=== PATIENT | male | born 1940 | race Two or more races ===

== ENCOUNTER 2016-08-25 11:20 | Outpatient (CLI) | payer MEDICARE, OTHER | END 2016-08-25 11:21 | disposition home or self-care (01) | DX: N18.3 Chronic kidney disease, stage 3 (moderate) (principal); R35.0 Frequency of micturition; R35.1 Nocturia; R33.9 Retention of urine, unspecified; R68.89 Other general symptoms and signs; N52.9 Male erectile dysfunction, unspecified ==

== ENCOUNTER 2016-08-25 11:20 | Outpatient (CLI) | payer MEDICARE, OTHER | END 2016-08-25 11:21 | disposition home or self-care (01) | DX: R35.0 Frequency of micturition (principal); R35.1 Nocturia; R68.89 Other general symptoms and signs; N18.9 Chronic kidney disease, unspecified; R31.29 Other microscopic hematuria; N52.9 Male erectile dysfunction, unspecified; R33.9 Retention of urine, unspecified ==

== ENCOUNTER 2016-08-26 14:27 | Outpatient (CLI) | payer MEDICARE, OTHER | END 2016-08-26 14:28 | disposition home or self-care (01) | DX: M41.26 Other idiopathic scoliosis, lumbar region (principal); M43.17 Spondylolisthesis, lumbosacral region; M51.16 Intervertebral disc disorders with radiculopathy, lumbar region; M47.26 Other spondylosis with radiculopathy, lumbar region; Z98.890 Other specified postprocedural states ==

== ENCOUNTER 2016-10-09 06:49 | Outpatient (CLI) | payer MEDICARE, OTHER | END 2016-10-09 06:50 | disposition home or self-care (01) | DX: I12.9 Hypertensive chronic kidney disease with stage 1 through stage 4 chronic kidney disease, or unspecified chronic kidney disease (principal); Z01.818 Encounter for other preprocedural examination; N18.3 Chronic kidney disease, stage 3 (moderate) ==

== ENCOUNTER 2016-12-01 15:20 | Emergency (ER) | payer MEDICARE, OTHER ==
[2016-12-01] MEDS ORDERED: SODIUM CHLORIDE 0.9% 1,000 ML IV ONE (17:17)
[2016-12-01] MEDS ORDERED: traMADol 50 MG TABLET PO STA (18:59)
[2016-12-01] MEDS ORDERED: ACETAMINOPHEN 325 MG TABLET PO STA (18:59)
[2016-12-01] MEDS ORDERED: traMADol 50 MG TABLET PO ONE (19:05)
[2016-12-01] MEDS ORDERED: ACETAMINOPHEN 325 MG TABLET PO ONE (19:05)
== END 2016-12-01 19:16 | disposition home or self-care (01) ==
DX: R55 Syncope and collapse (principal); I95.2 Hypotension due to drugs; T50.905A Adverse effect of unspecified drugs, medicaments and biological substances, initial encounter; M25.422 Effusion, left elbow; I10 Essential (primary) hypertension; Z79.82 Long term (current) use of aspirin
CPT/HCPCS: 36415; 71020; 73080; 80053; 81001; 83690; 83735; 84484; 85025; 99283; 99284; A9270

== ENCOUNTER 2016-12-08 08:55 | Outpatient (CLI) | payer MEDICARE, OTHER | END 2016-12-08 08:56 | disposition home or self-care (01) | DX: I12.9 Hypertensive chronic kidney disease with stage 1 through stage 4 chronic kidney disease, or unspecified chronic kidney disease (principal); N18.3 Chronic kidney disease, stage 3 (moderate); E78.5 Hyperlipidemia, unspecified ==

== ENCOUNTER 2016-12-08 15:46 | Outpatient (CLI) | payer MEDICARE, OTHER ==
[2016-12-08] MEDS ORDERED: GADOBUTROL 7.5 MMOL/7.5 ML VIAL IVP ONE (16:34)
== END 2016-12-08 15:47 | disposition home or self-care (01) ==
DX: M51.36 Other intervertebral disc degeneration, lumbar region (principal); M51.24 Other intervertebral disc displacement, thoracic region; M51.25 Other intervertebral disc displacement, thoracolumbar region; M47.896 Other spondylosis, lumbar region; M51.26 Other intervertebral disc displacement, lumbar region; M43.16 Spondylolisthesis, lumbar region; M43.17 Spondylolisthesis, lumbosacral region; I12.9 Hypertensive chronic kidney disease with stage 1 through stage 4 chronic kidney disease, or unspecified chronic kidney disease; N18.3 Chronic kidney disease, stage 3 (moderate); E78.5 Hyperlipidemia, unspecified
CPT/HCPCS: 36415; 72158; 80053; 84439; 84443; 85025; A9585

== ENCOUNTER 2017-05-20 14:36 | Outpatient (CLI) | payer MEDICARE, OTHER ==
[2017-05-20 19:10] LABS: CREATININE 1.6 mg/dL (0.6-1.2)
== END 2017-05-20 14:37 | disposition home or self-care (01) ==
LOC: LAB.N 14:36
PROVIDERS: ATTEND Urology
DX: R35.0 Frequency of micturition (principal); R68.89 Other general symptoms and signs; N52.9 Male erectile dysfunction, unspecified; R31.29 Other microscopic hematuria; N18.9 Chronic kidney disease, unspecified; R33.9 Retention of urine, unspecified; R35.1 Nocturia; M54.17 Radiculopathy, lumbosacral region
CPT/HCPCS: 36415; 82565; 84153

== ENCOUNTER 2017-05-25 08:40 | Outpatient (CLI) | payer MEDICARE, OTHER ==
[~2017-05-25 08:40] MED LIST: GADOBUTROL 7.5 MMOL/7.5 ML VIAL ONE
[2017-05-25] MEDS ORDERED: GADOBUTROL 7.5 MMOL/7.5 ML VIAL IVP ONE (09:32)
--- NOTE | 2017-05-25 11:01 | MRI Report ---
EXAM: MRI LUMBAR SPINE WITHOUT AND WITH CONTRAST EXAM DATE: 05/25/2017 09:39 AM. CLINICAL HISTORY: Lumbosacral radiculopathy. Chronic intermittent pain between the low back and right hip. Right calf numbness. COMPARISONS: MRI of the lumbar spine 12/08/2016. CT scan of the lumbar spine 08/14/2016. MRI of the l umbar spine 06/12/2016. TECHNIQUE: Multiplanar, multisequence T1-weighted and fluid-sensitive sequences of the lumbar spine f rom T12 to S1 before and after administration of intravenous contrast. IV contrast: 6 mL Gadavist. Ot her: None. FINDINGS: Postoperative: Postoperative changes once again seen at L5-S1. Posterior lateral fusion with transped icular screws is evident. This is unchanged. Spinal Cord: The conus terminates at L1. The conus medullaris and cauda equina are unremarkable. The lumbar spinal canal is capacious. Alignment: Mild dextroscoliosis is seen centered at L3-L4. Mild, 3 mm, spondylolisthesis is seen at L 5-S1 which is unchanged. Mild, 4 mm, spondylolisthesis is seen at L4-L5 which has progressed. Mild, 4 .5 mm, retrolisthesis is seen at L1 to which is unchanged. Bone Marrow: Five nic-owe-helyltb lumbar vertebral bodies are assumed. No gross fractures or bone les ions. No bone marrow edema or abnormal enhancement. Scattered diskogenic endplate irregularity and si gnal abnormality is noted. Disk Levels/Facets: T12-L1: Unremarkable on sagittal series. Mild dorsal disk protrusion extending behind the L1 superior endplate is seen. Dorsal annular fissure is noted. This is unchanged. No stenosis. L1-L2: Mild retrolisthesis. Marked loss of disk space height. Diskogenic endplate irregularity and si gnal abnormality with Modic type II change. Mild circumferential disk bulge. Anterior and lateral ost eophyte formation. No stenosis. L2-L3: Mild degenerative facet change. T2 hypointense disk signal. Mild circumferential disk bulge. L eft paracentral disk protrusion with small inferior extrusion behind the L3 superior endplate. Underl aurelia moderate left lateral recess stenosis is seen with mass effect on descending left L3 nerve root. This is not significantly changed. L3-L4: Moderate degenerative facet change is present. Marked loss of disk space height. Marked loss o f disk space height is seen. Diskogenic endplate irregularity and signal abnormality is seen greatest centrally and to the left. Mild circumferential protrusion of disk/osteophyte complex. Effacement of the thecal sac is noted without canal or lateral recess stenosis. Mass effect on exiting left L3 ner ve root is seen with moderate left foraminal stenosis. This is unchanged. L4-L5: Moderate degenerative facet change is seen. Postoperative change from partial facetectomy is n oted. Fluid is seen in the facet joints greater on the left. This is unchanged. Mild spondylolisthesi s is present which is new. Mild loss of disk space height is seen. Vacuum cleft phenomenon and T2 hyp ointense disk signal is present. Circumferential disk bulge is seen. Lobular right paracentral and me dial foraminal disk herniation is seen extending superiorly behind the L4 vertebral body. This measur es 16 x 10 x 15 mm in size. Mass effect on descending and proximal exiting right L4 nerve root is see n. Moderate stenosis is seen at the junction of the lateral recess and medial foramen. This has progr essed. L5-S1: Postoperative change. Mild loss of disk space height. Vacuum cleft phenomenon. Minimal circumf erential disk bulge. No stenosis. Spinal Canal: No enhancing masses within the spinal canal. No epidural abscess. Musculature: Normal. No edema, abnormal enhancement, or fatty atrophy. Other: There is a circumscribed 20 mm lesion posteromedially in the left kidney. This demonstrates mi ld increased T1 and isointense T2 signal. (This region was not included on most recent prior MRI; how ever, there is minimal increase compared to MRI of June 2016 at which time this measured approxim ately 18 mm). Additionally, there are a few small cortical cysts seen in the visualized right kidney, unchanged. IMPRESSION: 1. Circumscribed 20 mm mass posteromedially in the mid pole of the left kidney is partially visualize d. This does not appear to represent a simple cyst on MR. This may represent a cyst with hemorrhagic or proteinaceous debris. Correlation with ultrasound would be of value to assess for solid versus cys tic renal lesion. 2. Postoperative change at L5-S1 from posterior fusion once again noted. Mild spondylolisthesis is se en, unchanged. No stenosis. 3. L4-L5: Progression of moderate degenerative disk and facet change. Development of mild spondylolis thesis. Progression of right paracentral and medial foraminal superior disk herniation. Stenosis is s een at the right L4 lateral recess and medial foramen with mass effect on descending and exiting righ t L4 nerve root. 4. L3-L4: Moderate to marked degenerative disk and facet change once again evident. Left moderate for aminal stenosis with mass effect on exiting left L3 nerve root. This likely is not significantly shrestha ged. 5. L2-L3: Mild degenerative disk and facet change. Left paracentral disk herniation is seen behind th e L3 superior endplate. Left moderate lateral recess stenosis is seen with mass effect on descending left L3 nerve root. This likely is not significantly changed. 6. L1-L2: Marked degenerative disk change. Mild retrolisthesis. No stenosis. No significant change. Comment: The following findings are so common in adults without low back pain that while we report th eir presence, they must be interpreted with caution and in the context of the clinical situation. (Re emily Atwood et al, Spine 2001) Prevalence of findings in patients without low back pain: Disk degeneration (any evidence): 92% Disk desiccation/T2 signal loss: 83% Disk height loss: 56% Disk bulge: 64% Disk protrusion: 32% Annular tear/high intensity zone: 38% [facility] Referring Provider Line: [phone] SITE ID: [id number]
== END 2017-05-25 08:41 | disposition home or self-care (01) ==
LOC: DI 08:40
PROVIDERS: ATTEND Physician Assistant
DX: M51.26 Other intervertebral disc displacement, lumbar region (principal); M51.36 Other intervertebral disc degeneration, lumbar region; M47.896 Other spondylosis, lumbar region; M43.16 Spondylolisthesis, lumbar region; N28.89 Other specified disorders of kidney and ureter; Z98.1 Arthrodesis status
CPT/HCPCS: 72158; A9585

== ENCOUNTER 2017-05-29 14:49 | Outpatient (CLI) | payer MEDICARE, OTHER ==
--- NOTE | 2017-05-30 14:28 | Ultrasound Report ---
EXAM: RENAL ULTRASOUND EXAM DATE: 05/29/2017 04:08 PM. CLINICAL HISTORY: BENIGN NEOPLASM OF LT KIDNEY. COMPARISON: None. TECHNIQUE: Real-time scanning was performed with static images obtained. FINDINGS: Right Kidney: 11.3 x 5.2 x 5.1 cm. Diffuse increased cortical echogenicity suggest medical renal dise ase. Multiple renal cysts. The 2 largest measure 1.9 x 1.8 x 2.2 cm superiorly and 1.9 x 1.5 x 1.8 cm in the mid kidney. No mass, hydronephrosis or stones demonstrated. Left Kidney: 10.6 x 5.1 x 5.6 cm. Diffuse increased cortical echogenicity suggests medical renal dise ase. Multiple cysts, the largest within the upper pole measuring 2.6 x 2.5 x 2.4 cm. There is an infe rior cyst measuring 1.5 x 1.3 x 1.5 cm with possible calcification within its wall, versus artifact. No definite mass. No hydronephrosis or definite calculi. Bladder: Bilateral jets seen. The prevoid bladder volume was 453 cc. The postvoid bladder volume was 67 cc. IMPRESSION: 1. Bilateral renal increased cortical echogenicity suggests medical renal disease. 2. Multiple bilateral renal cysts. There is one possibly mildly complicated but benign-appearing left cyst. No definite mass demonstrate. 3. Postvoid bladder residual 67 cm. [facility] Referring Provider Line: [phone] SITE ID: [id number]
== END 2017-05-29 14:50 | disposition home or self-care (01) ==
LOC: DI 14:49
PROVIDERS: ATTEND Family Medicine
DX: Q61.02 Congenital multiple renal cysts (principal)
CPT/HCPCS: 76770

== ENCOUNTER 2017-08-28 07:45 | Outpatient (CLI) | payer MEDICARE, OTHER ==
[2017-08-28 12:29] LABS: ALBUMIN 3.5 g/dL (3.2-5.5); ALBUMIN/GLOBULIN RATIO 1.3 (1.0-2.2); ALKALINE PHOSPHATASE 66 IU/L (42-121); ALT ALANINE AMINOTRANSFERASE 18 IU/L (10-60); AST ASPARTATE AMINOTRANSFERASE 31 IU/L (10-42); BILIRUBIN,TOTAL 0.7 mg/dL (0.2-1.0); BUN - BLOOD UREA NITROGEN 22 mg/dL (6-20); CALCIUM 8.8 mg/dL (8.5-10.3); CARBON DIOXIDE - CO2 27 mmol/L (21-32); CHLORIDE 104 mmol/L (101-111); CHOLESTEROL 273 mg/dL; CREATININE 1.6 mg/dL (0.6-1.2); GFR - MDRD 42 (>89); GLUCOSE 101 mg/dL (70-100); HDL CHOLESTEROL 90 mg/dL; LDL CHOLESTEROL,CALCULATED 167 mg/dL; LDL/HDL RATIO 1.9 (<3.6); SODIUM 138 mmol/L (135-145); TOTAL PROTEIN 6.2 g/dL (6.7-8.2); VLDL CHOLESTEROL 16 mg/dL
[2017-08-28 12:36] LABS: THYROID STIMULATING HORMONE 0.29 uIU/mL (0.34-5.60)
[2017-08-28 14:14] LABS: FREE T4 (FREE THYROXINE) 0.96 ng/dL (0.58-1.64)
== END 2017-08-28 07:46 | disposition home or self-care (01) ==
LOC: LAB.WCP 07:45
PROVIDERS: ATTEND Family Medicine
DX: I10 Essential (primary) hypertension (principal); E78.5 Hyperlipidemia, unspecified
CPT/HCPCS: 36415; 80053; 80061; 83721; 84439; 84443

== ENCOUNTER 2018-05-27 10:40 | Outpatient (CLI) | payer MEDICARE, OTHER | END 2018-05-27 10:41 | LOC: LAB.WCP 10:40 | PROVIDERS: ATTEND Urology | DX: R35.0 Frequency of micturition (principal); R68.89 Other general symptoms and signs | CPT/HCPCS: 36415; 84153 ==

== ENCOUNTER 2019-04-09 09:21 | Outpatient (CLI) | payer MEDICARE, OTHER ==
[2019-04-09] MEDS ORDERED: GADOBUTROL 10 MMOL/10 ML VIAL ONE (10:11)
[2019-04-09] MEDS ORDERED: GADOBUTROL 10 MMOL/10 ML VIAL IVP ONE (10:35)
--- NOTE | 2019-04-10 12:57 | MRI Report ---
Reason: LUMBAR RADICULOPATHY Procedure Date: 04/09/2019 Accession Number: [id number] / [id number] Procedure: MRI - Lumbar Spine W/WO CPT Code: FULL RESULT: EXAM: MRI LUMBAR SPINE WITHOUT AND WITH CONTRAST EXAM DATE: 04/09/2019 10:57 AM. CLINICAL HISTORY: Lumbar radiculopathy. COMPARISONS: LUMBAR SPINE W/WO 05/25/2017 9:00 AM. TECHNIQUE: Multiplanar, multisequence T1-weighted and fluid-sensitive sequences of the lumbar spine from T12 to S1 before and after administration of intravenous contrast. Other: None. IV contrast: 7 cc Gadavist. FINDINGS: Neurologic Structures: The conus terminates at L1. The conus medullaris and cauda equina are unremarkable. Alignment: Approximately 5 mm posterior subluxation L1 on L2. 7 mm anterior subluxation L4 on L5 and L5 on S1. Appearance is similar to prior. Lumbar curvature convex right. Mild right lateral subluxation L3 on L4 and left lateral subluxation L1 on L2. Bone Marrow: Five ths-fvr-uhchmle lumbar vertebral bodies are assumed. Postsurgical change of posterior instrumented fusion and posterior decompression at L5-S1 with pedicle screws. Associated magnetic susceptibility artifact. Disk Levels/Facets: T12-L1: Annular disk bulge with tiny annular fissure and mild degenerative facet arthropathy. No significant stenosis unchanged. L1-L2: Severe disk height loss. Retrolisthesis. Annular disk bulge and mild degenerative facet arthropathy. Mild effacement of the thecal sac unchanged. Mild left greater than right foraminal stenosis unchanged. L2-L3: Mild disk height loss. Annular disk bulge and mild to moderate facet arthropathy. Superimposed broad-based left foraminal protrusion appears slightly increased in size from prior. Severe left lateral recess stenosis. Moderate left foraminal stenosis increased from prior. L3-L4: Disk height loss. Annular disk bulge and osteophyte formation. Moderate degenerative facet arthropathy. Mild effacement of the thecal sac. Moderate left and minimal right foraminal stenosis unchanged. L4-L5: Grade 1 spondylolisthesis. Annular disk bulge and uncovering of the disk. Posterior decompression. No central canal stenosis. Moderate left and severe right foraminal stenosis. Size of the right paracentral and subarticular zone superior disk extrusion has significantly decreased. L5-S1: Grade 1 spondylolisthesis. Annular disk bulge and uncovering of the disk. Posterior decompression. No central canal stenosis. Moderate left and mild right foraminal stenosis unchanged. Spinal Canal: No enhancing masses within the spinal canal. No epidural abscess. Musculature: Mild atrophy of the inferior paraspinous musculature. Other: Multiple bilateral renal cysts partially visualized. Rounded complex lesion at the medial aspect of the left kidney unchanged from prior. IMPRESSION: 1. Multilevel lumbar degenerative disk and facet arthropathy with multilevel subluxations, posterior decompression and posterior fusion at L5-S1 unchanged. 2. Size of the right paracentral superior disk extrusion at the L4-L5 level has significantly decreased from prior. Persistent severe right and moderate left foraminal stenosis. 3. Remainder of the examination is unchanged from prior. Comment: The following findings are so common in adults without low back pain that while we report their presence, they must be interpreted with caution and in the context of the clinical situation. (Reference Zurik et al, Spine 2001) Prevalence of findings in patients without low back pain: Disk degeneration (any evidence): 92% Disk desiccation/T2 signal loss: 83% Disk height loss: 56% Disk bulge: 64% Disk protrusion: 32% Annular tear/high intensity zone: 38% [facility]
== END 2019-04-09 09:22 | disposition home or self-care (01) ==
LOC: DI 09:21
PROVIDERS: ATTEND Family Medicine
DX: M51.26 Other intervertebral disc displacement, lumbar region (principal); M51.36 Other intervertebral disc degeneration, lumbar region; M48.061 Spinal stenosis, lumbar region without neurogenic claudication; M47.816 Spondylosis without myelopathy or radiculopathy, lumbar region; M43.16 Spondylolisthesis, lumbar region; M43.17 Spondylolisthesis, lumbosacral region; M48.07 Spinal stenosis, lumbosacral region
CPT/HCPCS: 72158; A9585

== ENCOUNTER 2019-05-30 13:24 | Outpatient (CLI) | payer MEDICARE, OTHER ==
--- NOTE | 2019-05-30 14:28 | CT Report ---
Reason: SPONDYLOSIS OF LUMBAR SPINE Procedure Date: 05/30/2019 Accession Number: [id number] / [id number] Procedure: CT - LUMBAR SPINE WO CPT Code: FULL RESULT: EXAM: CT LUMBAR SPINE WITHOUT CONTRAST EXAM DATE: 05/30/2019 01:30 PM. CLINICAL HISTORY: 78-year-old with history of prior lumbar spine surgery presenting with low back pain and lower extremity radiculopathy. Evaluate for lumbar pathology. COMPARISONS: LUMBAR SPINE W/O 08/26/2016 3:15 PM LUMBAR SPINE W/WO 04/09/2019 10:22 AM. TECHNIQUE: Thin-section axial images were acquired of the lumbar spine from T12 to S1 without contrast. Post-processing: Coronal and sagittal reformats. Other: None. In accordance with CT protocol optimization, one or more of the following dose reduction techniques were utilized for this exam: automated exposure control, adjustment of mA and/or KV based on patient size, or use of iterative reconstructive technique. FINDINGS: Postsurgical: Postsurgical changes of L5-S1 posterior spinal instrumented fusion and L5 laminectomy. Bilateral L5 and S1 pedicle screws are seen. There is 2 mm of lucency seen around the bilateral L5 pedicle screws concerning for potential loosening no evidence of hardware fracture. Bilateral L5-S1 vertical horizontal stabilization bars are seen. Alignment: There is 16 degrees of rightward curvature of the thoracic spine centered about L2-L3. There is 2-3 mm of grade 1 anterolisthesis of L1 on L2, 3-4 mm of grade 1 anterolisthesis of L2 on L3, 2-3 mm of anterolisthesis of L3 on L4, 8 mm of grade 1/2 anterolisthesis of L4 on L5, and 4-5 mm of grade 1 anterolisthesis of L5 on S1. Bones: Five wir-abp-webwvnl lumbar vertebral bodies are present. No fractures or bone lesions. There is arthritic changes seen between the spinous processes of L3 on L4 and to lesser degree L2 on L3. Disk Levels/Facets: T11-T12: Mild to moderate endplate degenerative change, Schmorl's node formation, mild to moderate loss of disk height, and vacuum disk phenomenon. Bilateral arthritic facet disease. No definite spinal canal stenosis. No definite neural foraminal narrowing. T12-L1: Mild endplate degenerative change, Schmorl's node formation, and mild loss of disk height. Slight posterior disk bulge. Bilateral arthritic facet disease. No definite spinal canal stenosis. Minimal bilateral neural femoral narrowing. L1-L2: Moderate to severe endplate degenerative change, Schmorl's node formation, severe loss of disk height, and vacuum disk phenomenon. Small posterior disk osteophyte complex. Bilateral arthritic facet disease. Effacement of the ventral thecal sac. Mild right and mild to moderate left neural foraminal narrowing. L2-L3: Mild endplate degenerative change, Schmorl's node formation, mild loss of disk height, and vacuum disk phenomenon. Slight posterior disk bulge, ligamentum flavum thickening, and prominent epidural fat. Mild spinal canal stenosis and effacement of the lateral recesses with contact of the traversing right L3 and contact potential mass effect on the traversing left L3 nerve roots. Mild right and severe left neural foraminal narrowing. L3-L4: Moderate endplate degenerative change, Schmorl's node formation, severe loss of disk height, and vacuum disk phenomenon. Small posterior disk bulge, ligamentum flavum thickening, and arthritic facet disease. Mild spinal canal stenosis and effacement of the lateral recesses. Mild right and moderate left neural foraminal narrowing. L4-L5: Moderate endplate degenerative change, Schmorl's node formation, moderate to severe loss of disk height, and vacuum disk phenomenon. Decompression of the thecal sac. Bilateral arthritic facet disease. No spinal canal stenosis. Severe bilateral neural foraminal narrowing. L5-S1: Mild endplate degenerative change, mild loss of disk height, and vacuum disk phenomenon. Decompression of the thecal sac. Bilateral arthritic facet disease. Mild to moderate bilateral neural foraminal narrowing. Musculature: Postsurgical changes seen within the posterior spinal musculature with edema seen within the posterior subcutaneous tissues. Other: Bilateral perinephric fat stranding. Severe aortoiliac atherosclerotic calcifications. Colonic diverticulosis without evidence of diverticulitis. Simple cysts seen within the hepatic lobe measuring up to 27 mm (series 3, image 12). Bilateral simple renal cyst seen. Hyperdense left kidney lower pole measuring up to 22 mm (series 3, image 50) that may present a hemorrhagic cyst. IMPRESSION: 1. Postsurgical changes of L5-S1 posterior spinal instrumented fusion and L5 laminectomy. There is 2 mm of lucency seen around the bilateral L5 pedicle screws concerning for potential loosening no evidence of hardware fracture. 2.There is 16 degrees of rightward curvature of the thoracic spine centered about L2-L3. 3. There is 2-3 mm of grade 1 anterolisthesis of L1 on L2, 3-4 mm of grade 1 anterolisthesis of L2 on L3, 2-3 mm of anterolisthesis of L3 on L4, 8 mm of grade 1/2 anterolisthesis of L4 on L5, and 4-5 mm of grade 1 anterolisthesis of L5 on S1. 4. Multilevel degenerative change that appears similar to MR lumbar spine 04/09/2019. L1-L2: Effacement of the ventral thecal sac. Mild right and mild to moderate left neural foraminal narrowing. L2-L3: Mild spinal canal stenosis and effacement of the lateral recesses with contact of the traversing right L3 and contact potential mass effect on the traversing left L3 nerve roots. Mild right and severe left neural foraminal narrowing. L3-L4: Mild spinal canal stenosis and effacement of the lateral recesses. Mild right and moderate left neural foraminal narrowing. L4-L5: No spinal canal stenosis. Severe bilateral neural foraminal narrowing. L5-S1: No definite spinal canal stenosis. Mild to moderate bilateral neural foraminal narrowing. 5. Severe aortoiliac atherosclerotic calcifications. 6. Colonic diverticulosis without evidence of diverticulitis. 7. Hyperdense left kidney lower pole measuring up to 22 mm (series 3, image 50) that may present a hemorrhagic cyst. Consider dedicated renal imaging evaluation. [facility]
== END 2019-05-30 13:25 | disposition home or self-care (01) ==
LOC: DI 13:24
PROVIDERS: ATTEND Nurse Practitioner Adult Health
DX: M47.816 Spondylosis without myelopathy or radiculopathy, lumbar region (principal); M51.36 Other intervertebral disc degeneration, lumbar region; M48.061 Spinal stenosis, lumbar region without neurogenic claudication; M51.34 Other intervertebral disc degeneration, thoracic region; M51.46 Schmorl's nodes, lumbar region; M51.44 Schmorl's nodes, thoracic region; M43.16 Spondylolisthesis, lumbar region; M41.9 Scoliosis, unspecified; I70.0 Atherosclerosis of aorta; K57.30 Diverticulosis of large intestine without perforation or abscess without bleeding
CPT/HCPCS: 72131

== ENCOUNTER 2019-06-23 07:00 | Outpatient (CLI) | payer MEDICARE, OTHER ==
[2019-06-23 13:01] LABS: BASOPHILS # (AUTO) 0.1 10^3/uL (0.0-0.1); EOSINOPHILS # (AUTO) 0.1 10^3/uL (0.0-0.7); EOSINOPHILS % (AUTO) 2.1 %; HGB - HEMOGLOBIN 13.3 g/dL (14.0-18.0); LYMPHOCYTES # (AUTO) 0.6 10^3/uL (1.5-3.5); LYMPHOCYTES % (AUTO) 12.5 %; MEAN CORPUSCULAR HEMOGLOBIN 31.1 pg (27.0-31.0); MEAN CORPUSCULAR HGB CONC 32.4 g/dL (32.0-36.0); MEAN CORPUSCULAR VOLUME 96.3 fL (80.0-94.0); MONOCYTES # (AUTO) 0.5 10^3/uL (0.0-1.0); MONOCYTES % (AUTO) 9.4 %; NEUTROPHILS # (AUTO) 3.8 10^3/uL (1.5-6.6); NEUTROPHILS % (AUTO) 74.8 %; PLT - PLATELET COUNT 273 10^3/uL (130-450); RED BLOOD COUNT 4.27 10^6/uL (4.70-6.10); RED CELL DISTRIBUTION WIDTH 12.8 % (12.0-15.0); WHITE BLOOD COUNT 5.1 x10^3/uL (4.8-10.8)
[2019-06-23 13:28] LABS: ALBUMIN 3.6 g/dL (3.2-5.5); ALBUMIN/GLOBULIN RATIO 1.2 (1.0-2.2); ALKALINE PHOSPHATASE 55 IU/L (42-121); ALT ALANINE AMINOTRANSFERASE 17 IU/L (10-60); AST ASPARTATE AMINOTRANSFERASE 29 IU/L (10-42); BILIRUBIN,TOTAL 0.8 mg/dL (0.2-1.0); BUN - BLOOD UREA NITROGEN 34 mg/dL (6-20); CALCIUM 8.9 mg/dL (8.5-10.3); CARBON DIOXIDE - CO2 28 mmol/L (21-32); CHLORIDE 102 mmol/L (101-111); CHOL/HDL RATIO 3.1 (<5.0); CHOLESTEROL 245 mg/dL; GFR - MDRD 33 (>89); GLUCOSE 102 mg/dL (70-100); HDL CHOLESTEROL 80 mg/dL; LDL CHOLESTEROL,CALCULATED 152 mg/dL; LDL/HDL RATIO 1.9 (<3.6); SODIUM 138 mmol/L (135-145); TOTAL PROTEIN 6.5 g/dL (6.7-8.2); VLDL CHOLESTEROL 13 mg/dL
== END 2019-06-23 23:59 | disposition home or self-care (01) ==
LOC: LAB.WCP 07:00
PROVIDERS: ATTEND Family Medicine
DX: M54.16 Radiculopathy, lumbar region (principal); I10 Essential (primary) hypertension; E78.5 Hyperlipidemia, unspecified
CPT/HCPCS: 36415; 80053; 80061; 83721; 84443; 85025

== ENCOUNTER 2019-08-11 08:00 | Outpatient (CLI) | payer MEDICARE, OTHER ==
[2019-08-11 12:51] LABS: CALCIUM 9.2 mg/dL (8.5-10.3); CREATININE 1.9 mg/dL (0.6-1.2)
== END 2019-08-11 23:59 | disposition home or self-care (01) ==
LOC: LAB.WCP 08:00
PROVIDERS: ATTEND Family Medicine
DX: N18.3 Chronic kidney disease, stage 3 (moderate) (principal)
CPT/HCPCS: 36415; 80048

== ENCOUNTER 2019-08-19 10:10 | Outpatient (CLI) | payer MEDICARE, OTHER | END 2019-08-19 23:59 | disposition home or self-care (01) | LOC: LAB.WCP 10:10 | PROVIDERS: ATTEND Urology | DX: N52.9 Male erectile dysfunction, unspecified (principal); R39.9 Unspecified symptoms and signs involving the genitourinary system; R68.89 Other general symptoms and signs; R31.29 Other microscopic hematuria; R33.9 Retention of urine, unspecified | CPT/HCPCS: 36415; 84153 ==

== ENCOUNTER 2019-10-10 11:22 | Outpatient (CLI) | payer MEDICARE, OTHER ==
[2019-10-10 18:32] LABS: BASOPHILS % (AUTO) 0.4 %; EOSINOPHILS # (AUTO) 0.1 10^3/uL (0.0-0.7); EOSINOPHILS % (AUTO) 0.9 %; HGB - HEMOGLOBIN 13.7 g/dL (14.0-18.0); LYMPHOCYTES # (AUTO) 0.9 10^3/uL (1.5-3.5); LYMPHOCYTES % (AUTO) 13.3 %; MEAN CORPUSCULAR HEMOGLOBIN 30.4 pg (27.0-31.0); MEAN CORPUSCULAR HGB CONC 32.4 g/dL (32.0-36.0); MEAN PLATELET VOLUME 9.8 fL (7.4-11.4); MONOCYTES # (AUTO) 0.5 10^3/uL (0.0-1.0); MONOCYTES % (AUTO) 7.5 %; NEUTROPHILS # (AUTO) 5.2 10^3/uL (1.5-6.6); NEUTROPHILS % (AUTO) 77.6 %; PLT - PLATELET COUNT 312 10^3/uL (130-450); RED CELL DISTRIBUTION WIDTH 13.1 % (12.0-15.0); WHITE BLOOD COUNT 6.7 x10^3/uL (4.8-10.8)
[2019-10-10 18:48] LABS: ALBUMIN 3.7 g/dL (3.2-5.5); ALKALINE PHOSPHATASE 55 IU/L (42-121); ALT ALANINE AMINOTRANSFERASE 16 IU/L (10-60); AST ASPARTATE AMINOTRANSFERASE 26 IU/L (10-42); BILIRUBIN,TOTAL 0.7 mg/dL (0.2-1.0); BUN - BLOOD UREA NITROGEN 32 mg/dL (6-20); CALCIUM 9.3 mg/dL (8.5-10.3); CARBON DIOXIDE - CO2 28 mmol/L (21-32); CHLORIDE 100 mmol/L (101-111); GFR - MDRD 33 (>89); GLUCOSE 123 mg/dL (70-100); SODIUM 136 mmol/L (135-145); TOTAL PROTEIN 6.8 g/dL (6.7-8.2)
[2019-10-10 18:57] LABS: BILIRUBIN,DIRECT < 0.1 mg/dL (0.1-0.5)
== END 2019-10-10 23:59 | disposition home or self-care (01) ==
LOC: LAB.WCP 11:22
PROVIDERS: ATTEND Podiatrist
DX: B35.1 Tinea unguium (principal)
CPT/HCPCS: 36415; 80048; 80076; 85025

== ENCOUNTER → 2020-05-23 | Outpatient (CLI) | payer MEDICARE, OTHER ==
[2020-05-23 18:24] LABS: ALBUMIN 3.7 g/dL (3.2-5.5); ALBUMIN/GLOBULIN RATIO 1.4 (1.0-2.2); BILIRUBIN,TOTAL 0.7 mg/dL (0.2-1.0); CALCIUM 9.7 mg/dL (8.5-10.3); TOTAL PROTEIN 6.3 g/dL (6.7-8.2)
== END ==
LOC: LAB.WCP 08:00
PROVIDERS: ATTEND Family Medicine
DX: B35.1 Tinea unguium (principal); N40.1 Benign prostatic hyperplasia with lower urinary tract symptoms; N13.8 Other obstructive and reflux uropathy; R68.89 Other general symptoms and signs
CPT/HCPCS: 36415; 80053; 84153

== ENCOUNTER 2020-05-29 15:19 | Outpatient (CLI) | payer MEDICARE, OTHER ==
--- NOTE | 2020-05-30 09:14 | Ultrasound Report ---
PROCEDURE: Duplex Lwr Ext Arterial Bilat INDICATIONS: RECURRING BILAT LE REST PAIN TECHNIQUE: Color and pulse Doppler interrogation was performed of both lower extremity arterial systems, with im age documentation. COMPARISON: FINDINGS: Right lower extremity: Common femoral artery: 136 cm/sec, with triphasic flow. Deep femoral artery: 64 cm/sec, with triphasic flow. Proximal superficial femoral artery: 70 cm/sec, with triphasic flow. Mid superficial femoral artery: 78 cm/sec, with triphasic flow. Distal superficial femoral artery: 56 cm/sec, with triphasic flow. Popliteal artery: 39 cm/sec, with biphasic/triphasic flow. Posterior tibial artery: 79 cm/sec, with triphasic flow. Anterior tibial artery/dorsalis pedis: 83/84 cm/sec, with biphasic/triphasic flow. Jiménez-scale imaging description: Mild to moderate calcific plaque bilaterally. Left lower extremity: Common femoral artery: 92 cm/sec, with triphasic flow. Deep femoral artery: 58 cm/sec, with monophasic flow. Proximal superficial femoral artery: 56 cm/sec, with triphasic flow. Mid superficial femoral artery: 60 cm/sec, with triphasic flow. Distal superficial femoral artery: 108 cm/sec, with triphasic flow. Popliteal artery: 37 cm/sec, with biphasic flow. Posterior tibial artery: 87 cm/sec, with biphasic flow. Anterior tibial artery/dorsalis pedis: 69/55 cm/sec, with biphasic/biphasic flow. Jiménez-scale imaging description: Mild to moderate calcific plaque bilaterally IMPRESSION: Mild to moderate calcific plaque bilaterally within the lower extremity arterial vasculature but with out arterial insufficiency found bilaterally. A definite source for suspected bilateral claudication is not found. Reviewed by: Cedrick Valdez MD on 05/30/2020 9:13 AM PDT Approved by: Cedrick Valdez MD on 05/30/2020 9:13 AM PDT Station ID: [id number]
--- NOTE | 2020-05-30 09:23 | Ultrasound Report ---
PROCEDURE: Ankle Brachial Index INDICATIONS: RECURRING BILAT LE REST PAIN TECHNIQUE: Ankle-brachial indices were obtained bilaterally and recorded. COMPARISONS: Arterial Doppler ultrasound study same day.. FINDINGS: Right ankle brachial index (ADRIANE): 1.1 Left ankle brachial index (ADRIANE): 1.2 Healing potential: Ankle pressures >55 mm Hg in non-diabetics and >80 mm Hg in diabetics are likely to achieve primary h ealing of ischemic foot ulcers. Toe pressures >30 mm Hg are likely to achieve primary healing of ischemic foot ulcers, toe or transme tatarsal amputations. IMPRESSION: Normal ankle-brachial index bilaterally. Reviewed by: Cedrick Valdez MD on 05/30/2020 9:22 AM PDT Approved by: Cedrick Valdez MD on 05/30/2020 9:22 AM PDT Station ID: [id number]
== END 2020-05-29 15:20 | disposition home or self-care (01) ==
LOC: DI 15:19
PROVIDERS: ATTEND Podiatrist
DX: I70.203 Unspecified atherosclerosis of native arteries of extremities, bilateral legs (principal)
CPT/HCPCS: 93922; 93925

== ENCOUNTER 2020-07-09 13:20 | Outpatient (CLI) | payer MEDICARE, OTHER ==
--- NOTE | 2020-07-09 13:22 | XRAY Report ---
PROCEDURE: Shoulder 3 View LT INDICATIONS: L SHOULDER PX TECHNIQUE: 3 views of the shoulder were acquired. COMPARISON: None. FINDINGS: Bones: No fractures or dislocations. Mild periarticular osteophyte formation at the acromioclavicul ar and glenohumeral joints. No suspicious bony lesions. Visualized ribs appear intact. Soft tissues: No suspicious soft tissue calcifications. IMPRESSION: Osteoarthritis. No acute fracture. No osseous lesion. If symptoms and/or clinical suspic ion for pathology continue, further assessment with repeat plain films, or advanced imaging (e.g., CT , MRI, or bone scan) is recommended for further assessment. Reviewed by: Sally Rosales MD on 07/09/2020 1:20 PM PST Approved by: Sally Rosales MD on 07/09/2020 1:20 PM [facility] Station ID: [id number]
== END 2020-07-09 23:59 | disposition home or self-care (01) ==
LOC: DI.N 13:20
PROVIDERS: ATTEND Nurse Practitioner
DX: M19.012 Primary osteoarthritis, left shoulder (principal)

== ENCOUNTER 2020-07-12 07:00 | Outpatient (CLI) | payer MEDICARE, OTHER ==
--- NOTE | 2020-07-12 13:57 | XRAY Report ---
PROCEDURE: Chest 2 View X-Ray INDICATIONS: EDEMA OF LOWER EXTREMITY TECHNIQUE: 2 view(s) of the chest. COMPARISON: 12/01/2016 FINDINGS: Surgical changes and devices: None. Lungs and pleura: Mixed groundglass and consolidative opacity in the left lung base which is new from the prior study, nonspecific. No pleural effusion or pneumothorax. Mediastinum: Mediastinal contours are normal. Heart size is normal. Bones and chest wall: No suspicious bony abnormalities. Soft tissues appear unremarkable. IMPRESSION: Lung base airspace opacity. Findings may represent pneumonia although alveolar pulmonary edema could appear similar. Reviewed by: Titi Ingram MD on 07/12/2020 1:56 PM PST Approved by: Titi Ingram MD on 07/12/2020 1:56 PM PST Station ID: [id number]
== END 2020-07-12 23:59 | disposition home or self-care (01) ==
LOC: DI.N 07:00
PROVIDERS: ATTEND Nurse Practitioner
DX: R60.0 Localized edema (principal)

== ENCOUNTER 2020-07-12 08:00 | Outpatient (CLI) | payer MEDICARE, OTHER ==
[2020-07-12 18:03] LABS: BASOPHILS % (AUTO) 0.5 %; EOSINOPHILS # (AUTO) 0.1 10^3/uL (0.0-0.7); EOSINOPHILS % (AUTO) 1.6 %; HGB - HEMOGLOBIN 12.8 g/dL (14.0-18.0); LYMPHOCYTES % (AUTO) 15.5 %; MEAN CORPUSCULAR HEMOGLOBIN 30.9 pg (27.0-31.0); MEAN CORPUSCULAR HGB CONC 31.5 g/dL (32.0-36.0); MEAN CORPUSCULAR VOLUME 98.1 fL (80.0-94.0); MONOCYTES # (AUTO) 0.5 10^3/uL (0.0-1.0); MONOCYTES % (AUTO) 8.3 %; NEUTROPHILS # (AUTO) 4.7 10^3/uL (1.5-6.6); NEUTROPHILS % (AUTO) 73.5 %; PLT - PLATELET COUNT 258 10^3/uL (130-450); RED BLOOD COUNT 4.14 10^6/uL (4.70-6.10); RED CELL DISTRIBUTION WIDTH 13.6 % (12.0-15.0); WHITE BLOOD COUNT 6.4 x10^3/uL (4.8-10.8)
[2020-07-12 18:19] LABS: ALBUMIN 3.4 g/dL (3.2-5.5); ALBUMIN/GLOBULIN RATIO 1.4 (1.0-2.2); BILIRUBIN,TOTAL 0.6 mg/dL (0.2-1.0); CALCIUM 8.9 mg/dL (8.5-10.3); TOTAL PROTEIN 5.8 g/dL (6.7-8.2)
== END 2020-07-12 23:59 | disposition home or self-care (01) ==
LOC: LAB.N 08:00
PROVIDERS: ATTEND Nurse Practitioner
DX: R60.0 Localized edema (principal)
CPT/HCPCS: 36415; 80053; 83880; 85025; 85379

== ENCOUNTER 2020-07-13 08:19 | Emergency (ER) | payer MEDICARE, OTHER ==
--- NOTE | 2020-07-13 08:24 | ED Physician Documentation ---
PD HPI LOWER EXT INJURY - Stated complaint Stated Complaint: SWOLLEN ANKLE/SENT BY WALK IN CLINIC - History obtained from History obtained from: Patient - History of Present Illness PD HPI LOW EXT INJURY LOCATION: Right, Lower leg, Ankle Type of injury: No: Fall, Twist Timing - onset: How many days ago (3-4) Timing - duration: Days (has noted gradual swelling right foot and ankle the past several days, increased to right lower leg and also now left ankle. Having some WYNNE without chest pain the past week or so. No orthopnea.) Timing - details: Gradual onset Worsened by: Palpating Associated symptoms: Swelling. No: Weakness, Numbness Contributing factors: No: Anticoagulated Similar symptoms before: Has not had sx before Recently seen: Clinic (seen at Walk In yesterday and had labs done (chem, cbc, d-dimer) and today was called to have ER eval due to elevated Creatinine 2.3 and d-dimer 357. Review of prior labs shows prior Cr 2.0. No eval of Troponin nor BNP.) Review of Systems Constitutional: denies: Fever, Chills Nose: denies: Rhinorrhea / runny nose, Congestion Throat: denies: Sore throat Cardiac: reports: Pedal edema. denies: Chest pain / pressure, Palpitations, Calf pain Respiratory: reports: Dyspnea. denies: Cough, Wheezing GI: denies: Nausea, Vomiting, Diarrhea PD PAST MEDICAL HISTORY - Past Medical History Cardiovascular: Hypertension, High cholesterol Respiratory: None Endocrine/Autoimmune: None GI: None : Benign prostate hypertrophy, Other HEENT: Chronic vision loss, Other Psych: None Musculoskeletal: Chronic back pain, Other Derm: Eczema - Past Surgical History Past Surgical History: Yes General: Colonoscopy, Other Ortho: Spine surgery HEENT: Tonsil/Adenoidectomy - Present Medications Home Medications: Ambulatory Orders Medication Instructions Recorded Confirmed Alfuzosin HCl [Alfuzosin HCl ER] 10 mg PO DAILY 09/03/14 07/13/20 Dutasteride [Avodart] 0.5 mg PO DAILY 09/03/14 07/13/20 Lisinopril 30 mg PO DAILY 09/03/14 07/13/20 Metoprolol Tartrate 10 mg PO BID 09/03/14 07/13/20 Pravastatin Sodium 20 mg PO DAILY 09/03/14 07/13/20 Tadalafil [Cialis] 5 mg PO PRN PRN 09/03/14 07/13/20 Cholecalciferol (Vitamin D3) 1 cap PO DAILY 10/01/15 07/13/20 [Vitamin D] Glucosamine/D3/Boswellia Alaina 1 tab PO DAILY 10/01/15 07/13/20 [Glucosamine Daily Complex Tab] Multivitamin [Multivitamins] 1 cap PO DAILY 10/01/15 07/13/20 Ubidecarenone/Vitamin E Mixed 1 cap PO DAILY 10/01/15 07/13/20 [Zrr35-Sex E 100 mg-10 Unit Sfg] Dexamethasone [Decadron] 0.75 mg PO BID 07/13/20 07/13/20 Diclofenac Sodium [Voltaren] 100 gm TP PRN PRN 07/13/20 07/13/20 Meloxicam [Mobic] 15 mg PO DAILY 07/13/20 07/13/20 Sildenafil Citrate [Sildenafil] 20 mg PO PRN PRN 07/13/20 07/13/20 hydroCHLOROthiazide [Hydrodiuril] 25 mg PO DAILY #20 tablet 07/13/20 oxyCODONE [Roxicodone] 5 mg PO BID 07/13/20 07/13/20 - Allergies Allergies/Adverse Reactions: Allergies Allergy/AdvReac Type Severity Reaction Status Date / Time Sulfa (Sulfonamide Allergy Rash Verified 07/13/20 08:37 Antibiotics) - Social History Does the pt smoke?: No Smoking Status: Never smoker Does the pt drink ETOH?: No Does the pt have substance abuse?: No - Immunizations Immunizations are current?: Yes - POLST Patient has POLST: No PD ED PE NORMAL - Vitals Vital signs reviewed: Yes - General General: Alert and oriented X 3, No acute distress, Well developed/nourished Results - Vitals Vitals: Vital Signs - 24 hr 07/13/20 07/13/20 07/13/20 08:27 10:43 11:00 Temperature 37.0 C Heart Rate 55 L 47 L 54 L Respiratory 18 18 15 Rate Blood Pressure 184/107 H 189/103 H 169/98 H O2 Saturation 94 93 94 Oxygen O2 Source Room air - Labs Labs: Laboratory Tests 07/13/20 07/13/20 07/13/20 09:11 09:38 09:38 Sodium 140 Potassium 4.8 Chloride 105 Carbon Dioxide 26 Anion Gap 9.0 BUN 44 H Creatinine 2.3 H Estimated GFR (MDRD) 28 L Glucose 101 H Calcium 9.4 Troponin I High Sens 65.3 H* B-Natriuretic Peptide 126 H 07/13/20 10:48 Sodium Potassium Chloride Carbon Dioxide Anion Gap BUN Creatinine Estimated GFR (MDRD) Glucose Calcium Troponin I High Sens 57.8 H* B-Natriuretic Peptide PD MEDICAL DECISION MAKING - ED course Complexity details: reviewed results (has elevated troponin, but may be normal in lieu of elevated Creatinine. Normal CXR and BNP. Repeat troponin similar, so not apparent acute process/rising number. Duplex without clots. CXR clear. ), re-evaluated patient (has somewhat lower heart rate with some PVCs. NO near syncope. Takes Meloxicam daily. On BP meds. ), considered differential, d/w patient ED course: Even though BP is somewhat elevated here, he says is usually normal. HR slower and could be leading to some WYNNE from beta whit effect. Edema in legs with elevated creatinine suggests some fluid retention rather than just gravity effect. Seen at walk in and was given Rx for diuretic (HCTZ 12.5 mg daily). I would have him hold the Meloxicam. Decrease the Metoprolol. COnsider decreasing Lisinopril if creatinine not improving in near term. Departure - Departure Disposition: 01 Home, Self Care Clinical Impression: Leg edema, Renal insufficiency Dyspnea Qualifiers: Dyspnea type: dyspnea on exertion Qualified Code(s): R06.00 - Dyspnea, unspecified Condition: Stable Record reviewed to determine appropriate education?: Yes Instructions: ED Edema Legs Bilateral Follow-Up: Amy Dominguez MSN [Provider Admit Priv/Credential] - Prescriptions: hydroCHLOROthiazide [Hydrodiuril] 25 mg PO DAILY #20 tablet Comments: Be sure to have a low-salt diet over the next couple of weeks in particular. It looks like they did submit a prescription for a diuretic to [facility]. Its 12.5 mg. I would suggest taking 2 of those daily (so 25 mg total) for the first 5 days or so and then perhaps down to the 12.5. Meanwhile hold your meloxicam for the next 10 days as this may be contributing to your kidney insufficiency. You also have a slightly slow heart rate here and so I would suggest decreasing your metoprolol 25 mg daily down to 12.5 mg daily. Continue your other current medications. Follow-up with your primary care clinic next week for at least repeat lab testing. Call for an appointment. You can use Uriel wrap for your legs to decrease swelling and elevate them often through the day. Otherwise continue usual activity. On your testing today, there is no signs of blood clots, heart failure or acute heart injury. The measure of your heart muscle was slightly elevated but was not changing on repeat test so is suggestive of or goes along with the impaired kidney function just not filtering the normal level out. Discharge Date/Time: 07/13/20 11:58
--- NOTE | 2020-07-13 09:46 | XRAY Report ---
PROCEDURE: Chest 2 View X-Ray INDICATIONS: dyspnea on exertion; leg edema TECHNIQUE: 2 view(s) of the chest. COMPARISON: 07/12/2020. FINDINGS: Surgical changes and devices: None. Lungs and pleura: No pleural effusions or pneumothorax. Lungs are clear. Mediastinum: Tortuous thoracic aorta is seen. Heart size is normal. Bones and chest wall: No suspicious bony abnormalities. Soft tissues appear unremarkable. IMPRESSION: Mildly tortuous thoracic aorta. No acute cardiopulmonary pathology. Reviewed by: Larry España MD on 07/13/2020 8:45 AM [facility] Approved by: Larry España MD on 07/13/2020 8:45 AM [facility] Station ID: [id number]
[2020-07-13 10:22] LABS: CALCIUM 9.4 mg/dL (8.5-10.3); CREATININE 2.3 mg/dL (0.6-1.2)
--- NOTE | 2020-07-13 10:33 | Ultrasound Report ---
PROCEDURE: Duplex Ext Veins Right INDICATIONS: right lower leg swelling 4 days TECHNIQUE: Real-time imaging, as well as color and pulse Doppler interrogation, were performed of the lower extr emity deep veins from the inguinal ligament to the popliteal fossa. COMPARISON: None. FINDINGS: The deep veins are normally compressible, and free of intraluminal thrombus. Color and pu lse Doppler demonstrate normal phasic intraluminal flow. There is normal augmentation response to di stal compression maneuver. IMPRESSION: No DVT identified in the right lower extremity. Reviewed by: Nazario Rojas on 07/13/2020 10:32 AM [facility] [place] Approved by: Nazario Rojas on 07/13/2020 10:32 AM [facility] [place] Station ID: [id number]
[2020-07-13 11:34] VITALS: BP 169/98
== END 2020-07-13 11:58 | disposition home or self-care (01) ==
LOC: ED 08:19
DX: R60.0 Localized edema (principal); N28.9 Disorder of kidney and ureter, unspecified; R06.09 Other forms of dyspnea; R07.9 Chest pain, unspecified; R79.89 Other specified abnormal findings of blood chemistry; R00.1 Bradycardia, unspecified; I49.3 Ventricular premature depolarization; I10 Essential (primary) hypertension
CPT/HCPCS: 36415; 80048; 83880; 84484; 93005; 99281; 99284

== ENCOUNTER 2020-07-17 08:00 | Outpatient (CLI) | payer MEDICARE, OTHER ==
[2020-07-17 18:51] LABS: CALCIUM 9.7 mg/dL (8.5-10.3); CREATININE 2.4 mg/dL (0.6-1.2)
== END 2020-07-17 23:59 | disposition home or self-care (01) ==
LOC: LAB.WCP 08:00
PROVIDERS: ATTEND Family Medicine
DX: N18.30 Chronic kidney disease, stage 3 unspecified (principal)
CPT/HCPCS: 36415; 80048

== ENCOUNTER 2020-07-31 10:23 | Outpatient (CLI) | payer MEDICARE, OTHER ==
[2020-07-31 14:06] LABS: CALCIUM 9.7 mg/dL (8.5-10.3); CREATININE 2.4 mg/dL (0.6-1.2)
[2020-07-31 14:27] LABS: THYROID STIMULATING HORMONE 0.42 uIU/mL (0.34-5.60)
[2020-07-31 14:29] LABS: FREE T3 3.04 pg/mL (2.5-3.9); FREE T4 (FREE THYROXINE) 0.98 ng/dL (0.58-1.64)
== END 2020-07-31 10:24 | disposition home or self-care (01) ==
LOC: LAB.N 10:23
PROVIDERS: ATTEND Family Medicine
DX: E05.90 Thyrotoxicosis, unspecified without thyrotoxic crisis or storm (principal); N18.30 Chronic kidney disease, stage 3 unspecified; R60.0 Localized edema; I95.9 Hypotension, unspecified
CPT/HCPCS: 36415; 80048; 84439; 84443; 84481

== ENCOUNTER 2020-08-14 08:00 | Outpatient (CLI) | payer MEDICARE, OTHER ==
[2020-08-14 18:59] LABS: CALCIUM 9.6 mg/dL (8.5-10.3)
== END 2020-08-14 08:01 | disposition home or self-care (01) ==
LOC: LAB.WCP 08:00
PROVIDERS: ATTEND Family Medicine
DX: N18.32 Chronic kidney disease, stage 3b (principal); N17.9 Acute kidney failure, unspecified
CPT/HCPCS: 36415; 80048

== ENCOUNTER 2020-09-26 08:00 | Outpatient (CLI) | payer MEDICARE, OTHER ==
[2020-09-26 18:41] LABS: ALBUMIN 3.8 g/dL (3.2-5.5); CALCIUM 9.7 mg/dL (8.5-10.3); CREATININE 3.4 mg/dL (0.6-1.2); PHOSPHORUS 5.2 mg/dL (2.5-4.6)
== END 2020-09-26 23:59 | disposition home or self-care (01) ==
LOC: LAB.WCP 08:00
PROVIDERS: ATTEND Internal Medicine
DX: I12.9 Hypertensive chronic kidney disease with stage 1 through stage 4 chronic kidney disease, or unspecified chronic kidney disease (principal); N18.4 Chronic kidney disease, stage 4 (severe)
CPT/HCPCS: 36415; 80069

== ENCOUNTER 2020-10-15 07:00 | Outpatient (CLI) | payer MEDICARE, OTHER ==
[2020-10-15 18:41] LABS: ALBUMIN 3.9 g/dL (3.2-5.5); CALCIUM 9.7 mg/dL (8.5-10.3); CREATININE 3.3 mg/dL (0.6-1.2); PHOSPHORUS 4.9 mg/dL (2.5-4.6); POTASSIUM 4.9 mmol/L (3.5-5.0)
== END 2020-10-15 23:59 | disposition home or self-care (01) ==
LOC: LAB.WCP 07:00
PROVIDERS: ATTEND Internal Medicine
DX: I12.9 Hypertensive chronic kidney disease with stage 1 through stage 4 chronic kidney disease, or unspecified chronic kidney disease (principal); N18.4 Chronic kidney disease, stage 4 (severe)
CPT/HCPCS: 36415; 80069

== ENCOUNTER 2020-11-13 08:00 | Outpatient (CLI) | payer MEDICARE, OTHER ==
[2020-11-13 18:47] LABS: ALBUMIN 3.9 g/dL (3.2-5.5); CALCIUM 9.7 mg/dL (8.5-10.3); CREATININE 3.5 mg/dL (0.6-1.2); PHOSPHORUS 4.6 mg/dL (2.5-4.6); POTASSIUM 4.5 mmol/L (3.5-5.0)
== END 2020-11-13 23:59 | disposition home or self-care (01) ==
LOC: LAB.WCP 08:00
PROVIDERS: ATTEND Internal Medicine
DX: N18.4 Chronic kidney disease, stage 4 (severe) (principal)
CPT/HCPCS: 36415; 80069

== ENCOUNTER 2020-12-11 20:10 | Inpatient (IN) | payer MEDICARE, OTHER ==
[2020-12-11 20:39] LABS: BASOPHILS % (AUTO) 0.5 %; EOSINOPHILS # (AUTO) 0.1 10^3/uL (0.0-0.7); EOSINOPHILS % (AUTO) 1.5 %; HCT - HEMATOCRIT 32.5 % (42.0-52.0); HGB - HEMOGLOBIN 10.9 g/dL (14.0-18.0); LYMPHOCYTES # (AUTO) 0.7 10^3/uL (1.5-3.5); LYMPHOCYTES % (AUTO) 10.8 %; MEAN CORPUSCULAR HEMOGLOBIN 31.8 pg (27.0-31.0); MEAN CORPUSCULAR HGB CONC 33.5 g/dL (32.0-36.0); MEAN CORPUSCULAR VOLUME 94.8 fL (80.0-94.0); MONOCYTES # (AUTO) 0.6 10^3/uL (0.0-1.0); MONOCYTES % (AUTO) 10.1 %; NEUTROPHILS # (AUTO) 4.6 10^3/uL (1.5-6.6); NEUTROPHILS % (AUTO) 76.6 %; PLT - PLATELET COUNT 249 10^3/uL (130-450); RED BLOOD COUNT 3.43 10^6/uL (4.70-6.10); RED CELL DISTRIBUTION WIDTH 11.9 % (12.0-15.0)
[2020-12-11 20:42] LABS: BILIRUBIN,URINE NEGATIVE (NEGATIVE); GLUCOSE, URINE (UA) NEGATIVE (NEGATIVE); KETONES,URINE (UA) NEGATIVE (NEGATIVE); LEUKOCYTE ESTERASE, URINE NEGATIVE (NEGATIVE); NITRITE,URINE NEGATIVE (NEGATIVE); OCCULT BLOOD,URINE NEGATIVE (NEGATIVE); PH,URINE 5.5 PH (5.0-7.5); PROTEIN,URINE 30 mg/dL (NEGATIVE); UROBILINOGEN,URINE 0.2 (NORMAL) E.U./dL (NORMAL)
[2020-12-11 20:43] LABS: CLARITY,URINE CLEAR (CLEAR)
[2020-12-11 20:51] LABS: BACTERIA,URINE None Seen /HPF (None Seen); MUCUS,URINE Few Strands; RBC,URINE 0-5 /HPF (0-5); SQUAMOUS EPITHELIAL CELL,UR NONE SEEN (<= Few); WBC,URINE 0-3 /HPF (0-3)
[2020-12-11] MEDS ORDERED: SODIUM CHLORIDE 0.9% 1,000 ML IV STA (20:51)
--- NOTE | 2020-12-11 20:51 | ED Physician Documentation ---
History of Present Illness - Stated complaint Stated Complaint: FAILED KIDNEY TEST - Chief complaint Chief Complaint: Abd Pain - History obtained from History obtained from: Patient - History of Present Illness Timing: Today Pain level max: 0 Pain level now: 0 - Additonal information Additional information: Patient is a 80-year-old male who presents to the emergency department stating that he had outpatient blood work today which showed worsening kidney failure. He was told by his fender finisher to come in to the emergency department for further evaluation. Patient is asymptomatic. No complaints. Patient states that he has had chronic kidney disease for years. He states he is being set up for peritoneal dialysis. Patient states that his fender finisher increased his Lasix about 1 month ago. He states that he had been eating and drinking well before a few days ago when his p.o. intake decreased. No fevers. No chills. No abdominal pain. No nausea, vomiting, diarrhea. Review of Systems Ten Systems: 10 systems reviewed and negative Constitutional: denies: Fever, Chills Nose: denies: Rhinorrhea / runny nose, Congestion Respiratory: denies: Cough GI: denies: Abdominal Pain, Nausea, Vomiting, Diarrhea Skin: denies: Rash Musculoskeletal: denies: Neck pain, Back pain Neurologic: denies: Headache PD PAST MEDICAL HISTORY - Past Medical History Past Medical History: Yes Cardiovascular: Hypertension, High cholesterol Respiratory: None Endocrine/Autoimmune: None GI: None : Benign prostate hypertrophy, Other HEENT: Chronic vision loss, Other Psych: None Musculoskeletal: Chronic back pain, Other Derm: Eczema - Past Surgical History Past Surgical History: Yes General: Colonoscopy, Other Ortho: Spine surgery HEENT: Tonsil/Adenoidectomy - Present Medications Home Medications: Ambulatory Orders Medication Instructions Recorded Confirmed Alfuzosin HCl [Alfuzosin HCl ER] 10 mg PO DAILY 09/03/14 12/11/20 Dutasteride [Avodart] 0.5 mg PO DAILY 09/03/14 12/11/20 Metoprolol Tartrate 10 mg PO BID 09/03/14 12/11/20 Pravastatin Sodium 20 mg PO DAILY 09/03/14 12/11/20 Cholecalciferol (Vitamin D3) 1 cap PO DAILY 10/01/15 12/11/20 [Vitamin D] Glucosamine/D3/Boswellia Alaina 1 tab PO DAILY 10/01/15 12/11/20 [Glucosamine Daily Complex Tab] Multivitamin [Multivitamins] 1 cap PO DAILY 10/01/15 12/11/20 Ubidecarenone/Vitamin E Mixed 1 cap PO DAILY 10/01/15 12/11/20 [Uhs70-Dqf E 100 mg-10 Unit Sfg] Dexamethasone [Decadron] 0.75 mg PO BID 07/13/20 12/11/20 Diclofenac Sodium [Voltaren] 100 gm TP PRN PRN 07/13/20 12/11/20 Sildenafil Citrate [Sildenafil] 20 mg PO PRN PRN 07/13/20 12/11/20 oxyCODONE [Roxicodone] 5 mg PO BID 07/13/20 12/11/20 Furosemide [Lasix] 80 mg PO BID 12/11/20 12/11/20 Zolpidem [Ambien] 5 mg PO DAILY 12/11/20 12/11/20 hydrOXYzine HCL [Hydroxyzine HCl] 25 mg PO DAILY PM 12/11/20 12/11/20 - Allergies Allergies/Adverse Reactions: Allergies Allergy/AdvReac Type Severity Reaction Status Date / Time Sulfa (Sulfonamide Allergy Rash Verified 07/13/20 08:37 Antibiotics) - Social History Does the pt smoke?: No Smoking Status: Never smoker Does the pt drink ETOH?: Yes ETOH Use: Liquor Does the pt have substance abuse?: No - Immunizations Immunizations are current?: Yes - POLST Patient has POLST: No PD ED PE NORMAL - Vitals Vital signs reviewed: Yes - General General: Alert and oriented X 3, No acute distress, Well developed/nourished - HEENT HEENT: Moist mucous membranes - Neck Neck: Supple, no meningeal sign - Cardiac Cardiac: RRR, Strong equal pulses - Respiratory Respiratory: No respiratory distress, Clear bilaterally - Abdomen Abdomen: Soft, Non tender, Non distended - Back Back: No CVA TTP, No spinal TTP - Derm Derm: Warm and dry - Extremities Extremities: No calf tenderness / cord - Neuro Neuro: Alert and oriented X 3 - Psych Psych: Normal mood, Normal affect Results - Vitals Vitals: Vital Signs - 24 hr 12/11/20 12/11/20 20:12 20:39 Temperature 36.4 C L Heart Rate 85 83 Respiratory 20 18 Rate Blood Pressure 106/66 106/69 O2 Saturation 94 96 Oxygen O2 Source Room air - Labs Labs: Laboratory Tests 12/11/20 12/11/20 12/11/20 20:30 20:30 20:30 WBC 6.0 RBC 3.43 L Hgb 10.9 L Hct 32.5 L MCV 94.8 H MCH 31.8 H MCHC 33.5 RDW 11.9 L Plt Count 249 MPV 9.0 Neut # (Auto) 4.6 Lymph # (Auto) 0.7 L [place] # (Auto) 0.6 Eos # (Auto) 0.1 Baso # (Auto) 0.0 Absolute Nucleated RBC 0.00 Nucleated RBC % 0.0 Sodium 136 Potassium 3.7 Chloride 91 L Carbon Dioxide 26 Anion Gap 19.0 H BUN 184 H* Creatinine 5.5 H Estimated GFR (MDRD) 10 L Glucose 125 H Calcium 9.7 Total Bilirubin 0.7 AST 26 ALT 20 Alkaline Phosphatase 50 Total Protein 7.2 Albumin 4.2 Globulin 3.0 Albumin/Globulin Ratio 1.4 Urine Color YELLOW Urine Clarity CLEAR Urine pH 5.5 Ur Specific [place] 1.020 Urine Protein 30 H Urine Glucose (UA) NEGATIVE Urine Ketones NEGATIVE Urine Occult Blood NEGATIVE Urine Nitrite NEGATIVE Urine Bilirubin NEGATIVE Urine Urobilinogen 0.2 (NORMAL) Ur Leukocyte Esterase NEGATIVE Urine RBC 0-5 Urine WBC 0-3 Ur Squamous Epith Cells NONE SEEN Urine Bacteria None Seen Urine Mucus Few Strands Ur Microscopic Review INDICATED Urine Culture Comments NOT INDICATED Nasal Adenovirus (PCR) Nasal B. parapertussis DNA (PCR) Nasal Coronavir 229E PCR Nasal Coronavir HKU1 PCR Nasal Coronavir NL63 PCR Nasal Coronavir OC43 PCR Nasal Enterovir/Rhinovir PCR Nasal Influenza B PCR Nasal Influenza A PCR Nasal Parainfluen 1 PCR Nasal Parainfluen 2 PCR Nasal Parainfluen 3 PCR Nasal Parainfluen 4 PCR Nasal RSV (PCR) Nasal B.pertussis DNA PCR Nasal C.pneumoniae (PCR) Yassine Human Metapneumo PCR Nasal M.pneumoniae (PCR) Nasal SARS-CoV-2 (PCR) 12/11/20 21:00 WBC RBC Hgb Hct MCV MCH MCHC RDW Plt Count MPV Neut # (Auto) Lymph # (Auto) [place] # (Auto) Eos # (Auto) Baso # (Auto) Absolute Nucleated RBC Nucleated RBC % Sodium Potassium Chloride Carbon Dioxide Anion Gap BUN Creatinine Estimated GFR (MDRD) Glucose Calcium Total Bilirubin AST ALT Alkaline Phosphatase Total Protein Albumin Globulin Albumin/Globulin Ratio Urine Color Urine Clarity Urine pH Ur Specific [place] Urine Protein Urine Glucose (UA) Urine Ketones Urine Occult Blood Urine Nitrite Urine Bilirubin Urine Urobilinogen Ur Leukocyte Esterase Urine RBC Urine WBC Ur Squamous Epith Cells Urine Bacteria Urine Mucus Ur Microscopic Review Urine Culture Comments Nasal Adenovirus (PCR) NOT DETECTED Nasal B. parapertussis DNA (PCR) NOT DETECTED Nasal Coronavir 229E PCR NOT DETECTED Nasal Coronavir HKU1 PCR NOT DETECTED Nasal Coronavir NL63 PCR NOT DETECTED Nasal Coronavir OC43 PCR NOT DETECTED Nasal Enterovir/Rhinovir PCR NOT DETECTED Nasal Influenza B PCR NOT DETECTED Nasal Influenza A PCR NOT DETECTED Nasal Parainfluen 1 PCR NOT DETECTED Nasal Parainfluen 2 PCR NOT DETECTED Nasal Parainfluen 3 PCR NOT DETECTED Nasal Parainfluen 4 PCR NOT DETECTED Nasal RSV (PCR) NOT DETECTED Nasal B.pertussis DNA PCR NOT DETECTED Nasal C.pneumoniae (PCR) NOT DETECTED Yassine Human Metapneumo PCR NOT DETECTED Nasal M.pneumoniae (PCR) NOT DETECTED Nasal SARS-CoV-2 (PCR) NOT DETECTED PD MEDICAL DECISION MAKING - ED course Complexity details: reviewed results, re-evaluated patient, considered differential, d/w patient, d/w it solutions sales consultant ED course: 80-year-old male with acute on chronic renal failure. Also uremic. His Lasix was recently increased from 40 mg to 80 mg and apparently his torsemide was also increased or added on. His lisinopril was also stopped. Likely that he is over diuresed. Discussed the case with Dr. Culver, nephrology, who recommends IV fluids overnight, recheck labs in the morning. If he is not improving, would consider transfer. If the patient is improving, could follow-up closely with Dr. Culver. Discussed the case with Dr. Lezama, hospitalist who accepts. This document was made in part using voice recognition software. While efforts are made to proofread this document, sound alike and grammatical errors may occur. Departure - Departure Disposition: ED Place in Observation Clinical Impression: Dehydration, Uremia Acute renal failure Qualifiers: Acute renal failure type: unspecified Qualified Code(s): N17.9 - Acute kidney failure, unspecified Condition: Stable
[2020-12-11 21:06] LABS: ALBUMIN 4.2 g/dL (3.2-5.5); ALBUMIN/GLOBULIN RATIO 1.4 (1.0-2.2); BILIRUBIN,TOTAL 0.7 mg/dL (0.2-1.0); CALCIUM 9.7 mg/dL (8.5-10.3); CREATININE 5.5 mg/dL (0.6-1.2); POTASSIUM 3.7 mmol/L (3.5-5.0); TOTAL PROTEIN 7.2 g/dL (6.7-8.2)
[2020-12-11] MEDS ORDERED: oxyCODONE 5 MG TABLET PO PRN (21:45)
[2020-12-11] MEDS ORDERED: ONDANSETRON 4 MG/2 ML VIAL IVP PRN (21:45)
[2020-12-11] MEDS ORDERED: ACETAMINOPHEN 325 MG TABLET PO PRN (21:45)
[2020-12-11] MEDS ORDERED: SODIUM CHLORIDE FLUSH 0.9% 10 ML SYRINGE IVP PRN (21:45)
--- NOTE | 2020-12-11 21:52 | HISTORY & PHYSICAL EXAMINATION ---
Chief Complaint - Chief Complaint Chief Complaint: fatigue and weakness History of Present Illness - Admitted From Admitted From:: Home via POV/ER - History Obtained From Records Reviewed: [facility] History obtained from: Patient and Dr. Rosario Exam Limitations: none - History of Present Illness HPI Comment/Other: He is a 80-year-old white male that has chronic kidney disease and recently had medication adjustment by his deaf interpreter, Dr. Shawn Culver. His Lasix was doubled and metolazone was added. The patient has been compliant with this change, but started having fatigue, weakness. His deaf interpreter did lab work (today is Thursday) and stopped his lisinopril and cut back on the diuretics. He had more blood work today, and later Dr. Culver called him to tell him he needed to come to the emergency room because of the lab work findings. His baseline creatinine is in the 3s and it is now 5.5. Baseline BUN is 90 and it's [address] Rosario, in the emergency room, has spoken to Dr. Culver and he is requesting the patient be placed in observation for hydration. If his BUN and creatinine do not respond tomorrow morning to please give Dr. Culver a call tomorrow and he would probably asked the patient be transferred to [facility]. The patient is already starting to be scheduled for the preliminary appointments to get him ready for peritoneal dialysis in anticipation of worsening kidney function. He denies orthopnea. He has chronic dyspnea on exertion where if he walks slightly uphill he gets bad. However he walks on level ground he is perfectly fine without any change in the last year or 2. He has no chest pain, palpitations. He has chronic leg edema which worsened in the last few months but improved with the doubling of the diuretics. In the emergency room temperature was 36.4. Heart rate 85. Blood pressure 106/66. Respirations 20 and 94% on room air. BUN is 184, creatinine is 5.5. Hemoglobin is 10.10. In July 2020 he was 12.8. In October 2019 he was 13.7. He denies black stools, change in his bowel habits. He has no history of ulcers. Does take diclofenac cream and Decadron 0.75 twice daily. But he denies taking [id number] nonsteroidals. History - Past Medical History Cardiovascular: reports: Hypertension, High cholesterol, Other (chronic leg edema w stasis dermatitis) Respiratory: reports: None Endocrine/Autoimmune: reports: Other (Steroids for low adrenal hormones) GI: reports: Other (left inguinal hernia) : reports: Benign prostate hypertrophy, Retention, Nocturia, Frequency, Other (chronic hematuria, benign tumor left kidney, erectile dysfunction use of Cialis in past) HEENT: reports: Chronic vision loss, Other (cataracts) Psych: reports: Other (Insomnia after travel to [place] 06/2018 and put on ambien prn) Musculoskeletal: reports: Osteoarthritis (with pain in knees, shoulders and hands. s/p steroid or synvisc injections), Chronic back pain, Other (06/2017, weaned of opiates by 06/2018 but needed to resume due to pain) Derm: reports: Eczema, Other (shingles in the past) MRSA Hx?: No - Past Surgical History General: reports: Colonoscopy, Other (inguinal hernia repair and redo) Ortho: reports: Spine surgery (L5-S1 fusion 11/2016) HEENT: reports: Cataracts, Tonsil/Adenoidectomy Derm: reports: Other (allergic dermatitis) Other past surgical history: I&D right butt abcess 01/2012 - Family & Social History Family History Comment/Other: Mom at age 87 and had a history of breast cancer but of failure to thrive. Dad of [place] When he was in his early 60s. No siblings. 5 children are healthy without a history of blood pressure, cancer, heart attack, stroke or diabetes Living arrangement: At home Living Situation: With spouse/s.o. Social History Notes: Started smoking in 1957 and smoked up to a pack per day and quit in 2017 with his back surgery. Also did 3 cigars/week. Wine or vodka daily. 1 or 2 drinks max. 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 He retired in the early . He was visiting his szvjhkl-ic-dow who lives in [place] and really like this area. Came to buy property in [facility] and ended up building a house here and living here since the mid . He lives with his . They have 5 children who live all over. - Substance History Use: Uses substance without health or social issues: Alcohol Abuse: Recurrent use of substance despite neg consequences: NONE Dependence: Experiences withdrawal or developed tolerances: NONE - POLST Patient has POLST: No POLST Status: DNR (He has something in a bottle that is put in the freezer in his house) Meds/Allgy - Home Medications Home Medications: Ambulatory Orders Medication Instructions Recorded Confirmed Alfuzosin HCl [Alfuzosin HCl ER] 10 mg PO DAILY 09/03/14 12/11/20 Dutasteride [Avodart] 0.5 mg PO DAILY 09/03/14 12/11/20 Metoprolol Tartrate 10 mg PO BID 09/03/14 12/11/20 Pravastatin Sodium 20 mg PO DAILY 09/03/14 12/11/20 Cholecalciferol (Vitamin D3) 1 cap PO DAILY 10/01/15 12/11/20 [Vitamin D] Glucosamine/D3/Boswellia Alaina 1 tab PO DAILY 10/01/15 12/11/20 [Glucosamine Daily Complex Tab] Multivitamin [Multivitamins] 1 cap PO DAILY 10/01/15 12/11/20 Ubidecarenone/Vitamin E Mixed 1 cap PO DAILY 10/01/15 12/11/20 [[id number] E 100 mg-10 Unit Sfg] Dexamethasone [Decadron] 0.75 mg PO BID 07/13/20 12/11/20 Diclofenac Sodium [Voltaren] 100 gm TP PRN PRN 07/13/20 12/11/20 Sildenafil Citrate [Sildenafil] 20 mg PO PRN PRN 07/13/20 12/11/20 oxyCODONE [Roxicodone] 5 mg PO BID 07/13/20 12/11/20 Furosemide [Lasix] 80 mg PO BID 12/11/20 12/11/20 Zolpidem [Ambien] 5 mg PO DAILY 12/11/20 12/11/20 hydrOXYzine HCL [Hydroxyzine HCl] 25 mg PO DAILY PM 12/11/20 12/11/20 - Allergies Allergies/Adverse Reactions: Allergies Allergy/AdvReac Type Severity Reaction Status Date / Time Sulfa (Sulfonamide Allergy Rash Verified 07/13/20 08:37 Antibiotics) Review of Systems - Constitutional Constitutional: reports: Fatigue, Malaise, Weakness, Poor appetite - Eyes Eyes: reports: Vision loss. denies: Pain, Irritation, Amaurosis, Blurred vision - Ears, Nose & Throat Ears, Nose & Throat: denies: Ear pain, Hearing loss, Hearing aids, Tinnitus, Vertigo, Nasal pain, Nasal discharge, Sore throat, Hoarseness - Cardiovascular Cariovascular: reports: Edema, Lightheadedness, Exertional dyspnea. denies: Irregular heart rate, Palpitations, Chest pain, Syncope, Decr. exercise tolerance - Respiratory Respiratory: reports: SOB with exertion (If you go up hil). denies: Cough, Sputum production, Wheezing, Snoring, SOB at rest - Gastrointestinal Gastrointestinal: reports: Abdominal distention, Constipation. denies: A bdominal pain, Diarrhea, Change in bowel habits, Rectal bleeding, Black stools, Bloody stools, Nausea, Vomiting - Genitourinary Genitourinary: reports: Frequency, Urgency, Incontinence, Nocturia, Sexual dysfunction - Musculoskeletal Musculoskeletal: reports: Back pain, Joint pain, Joint swelling - Integumentary Integumentary: reports: Rash. denies: Pruritis, Lesions, Dryness, Acne, Pigment changes - Neurological Neurological: reports: General weakness, Dizziness. denies: Focal weakness, Headache, Numbness, Memory problems, Pre-existing deficit, Abnormal gait, Seizures, Slurred speech - Psychiatric Psychiatric: denies: Depression, Anxiety, Suicidal, Delusions - Endocrine Endocrine: reports: Intolerance to cold. denies: Polyuria, Polydypsia, Polyphagia - Hematologic/Lymphatic Hematologic/Lymphatic: reports: Anemia, Bruising, Bleeding tendencies. denies: Petechiae, Blood clots, Lymphadenopathy Prior Level of Functionality: Over the years he is gradually gotten more fatigued and is difficult for him to do the things he likes. When he retired he had a 40 foot sailboat that they sailed to the [facility], and out down to [place]. He then downsized that boat and then most recently has a 12 foot skiff that he uses mainly dropped crab pots. He is just too tired and cannot run a boat by himself anymore. He still drives a car, dresses himself, feeds himself. Does not do much housework anymore. Relatively sedentary. Can walk on flat level ground as long as he can do it slowly. Does not use durable medical equipment. Exam - Vital Signs Reviewed Vital Signs: Yes Vital Signs: Vital Signs x48h Temp Pulse Resp BP Pulse Ox 12/11/20 20:39 83 18 106/69 96 12/11/20 20:12 36.4 C L 85 20 106/66 94 - Physical Exam General Appearance: positive: No acute distress, Alert, Other (Fatigued appearing, muted affect white male who looks his stated age) Eyes Bilateral: positive: PERRL, EOMI ENT: positive: Pharynx nml Neck: positive: No JVD. negative: Stiff neck, Carotid bruit Respiratory: positive: Chest non-tender, No respiratory distress. negative: Wheezes, Rales, Rhonchi Cardiovascular: positive: Regular rate & rhythm, Systolic murmur. negative: Gallop/S4, Friction rub Peripheral Pulses: positive: 1+ Abdomen: positive: Non-tender, No organomegaly, Nml bowel sounds, No distention Skin: positive: Warm, Dry, Pallor Extremities: positive: Full ROM, Pedal edema (Was signs of venous stasis dermatitis that is healed) Neurologic/Psychiatric: positive: Oriented x3, CN's nml (2-12), Motor nml Conclusion/Plan - Problem List (1) Acute renal failure superimposed on stage 4 chronic kidney disease Conclusion/Plan: Chronic kidney disease that is being monitored closely by nephrology. They are getting ready for dialysis for him. Recent acute worsening due to iatrogenic use of diuretics. His CHAPARRITA inhibitor and diuretics have been discontinued. Plan: Observation status IV fluids Recheck BUN and creatinine in the morning If improved he will stay here and then go home. If not any better or worse he will need to be transferred to [facility]. Qualifiers: Acute renal failure type: unspecified Qualified Code(s): N17.9 - Acute kidney failure, unspecified; N18.4 - Chronic kidney disease, stage 4 (severe) (2) Anemia Conclusion/Plan: new problem. October 201913.7 hgb, July 202012.8 hgb, and today 10.9 Colonoscopies uptodate. No change in BM. No hx of ulcers. does have hx of chronic hameaturia. Plan: check FOBT check anemia panel in am Qualifiers: Anemia type: unspecified type Qualified Code(s): D64.9 - Anemia, unspecified (3) Chronic pain disorder Conclusion/Plan: Resume his usual oxycodone 5 mg p.o. twice daily. (4) BPH w urinary obs/LUTS Conclusion/Plan: resume avodart. He says he has asked for surgery adn for various reasons that are ot clear to him, he is not a candidate. - Lab Results Lab results reviewed: Yes Fish Bones: 12/11/20 20:30 12/11/20 20:30
[2020-12-11 22:05] LABS: B. PARAPERTUSSIS- RESP PCR PAN NOT DETECTED; B. PERTUSSIS- RESP PCR PANEL NOT DETECTED; C. PNEUMONIAE- RESP PCR PANEL NOT DETECTED; CORONAVIRUS 229E-RESP PCR NOT DETECTED; CORONAVIRUS HKU1-RESP PCR NOT DETECTED; CORONAVIRUS NL63-RESP PCR NOT DETECTED; CORONAVIRUS OC43-RESP PCR NOT DETECTED; HUMAN METAPNEUMOVIRUS NOT DETECTED; INFLUENZA A- RESP PCR PANEL NOT DETECTED; INFLUENZA B - RESP PCR PANEL NOT DETECTED; PARAINFLUENZA VIRUS 1 NOT DETECTED; PARAINFLUENZA VIRUS 2 NOT DETECTED; PARAINFLUENZA VIRUS 3 NOT DETECTED; PARAINFLUENZA VIRUS 4 NOT DETECTED; RHINOVIRUS/ENTEROVIRUS NOT DETECTED; RSV- RESP PCR PANEL NOT DETECTED; SARS-CoV-2 -RESP PCR PANEL NOT DETECTED
[2020-12-11 22:06] LABS: M. PNEUMONIAE- RESP PCR PANEL NOT DETECTED
[2020-12-11] MEDS: SODIUM CHLORIDE FLUSH 0.9% 10 ML SYRINGE IVP SCH (23:39)
[2020-12-11] MEDS: LACTATED RINGERS 1,000 ML IV SCH (23:39)
[2020-12-12 05:10] LABS: ABSOLUTE RETICS # AUTO 0.031 10^6/uL (0.020-0.110); RED BLOOD COUNT 3.22 10^6/uL (4.70-6.10); RETICULOCYTE COUNT % (AUTO) 0.96 % (0.5-2.3)
[2020-12-12 05:35] LABS: CALCIUM 9.6 mg/dL (8.5-10.3); CREATININE 4.6 mg/dL (0.6-1.2); POTASSIUM 3.9 mmol/L (3.5-5.0)
[2020-12-12 05:38] LABS: FERRITIN 251.8 ng/mL (23.9-336.2)
[2020-12-12] MEDS: FINASTERIDE 5 MG TABLET PO SCH ×2 (08:13→08:25)
[2020-12-12] MEDS: LACTATED RINGERS 1,000 ML IV SCH ×2 (08:14→19:07)
[2020-12-12] MEDS: SODIUM CHLORIDE FLUSH 0.9% 10 ML SYRINGE IVP SCH ×2 (08:14→16:15)
[2020-12-12] MEDS: oxyCODONE 5 MG TABLET PO SCH ×2 (08:15→20:54)
[2020-12-12] MEDS: ENOXAPARIN 40 MG/0.4 ML SYRINGE SUBQ SCH (08:15)
[2020-12-12] MEDS ORDERED: DUTASTERIDE 0.5 MG PO SCH (09:00)
[2020-12-12] MEDS: TAMSULOSIN 0.4 MG CAPSULE PO SCH (09:20)
--- NOTE | 2020-12-12 10:08 | PROVIDER PROGRESS NOTE ---
Subjective - Prog Note Date Prog Note Date: 12/12/20 - Subjective Pt reports feeling: Improved Subjective: pt report he has no shortness of breath and no respiratory distress whe he walk around but he report he felt shortness of breath when he went to upstairs in his home. His bilateral lower extremities has no obvious edema at this time. pt feel much better and no other complaints. I called pt's railcar switcher Dr. Culver [phone] to update pt's medical conditions. he is very happy with pt's progress and his number, at this point, pt may not be transferred. He ask pt call his office to make appointment on next week. Current Medications - Current Medications Current Medications: Active Medications Acetaminophen (Acetaminophen 325 Mg Tablet) 650 mg PO Q4HR PRN PRN Reason: Pain 1 to 4 Dexamethasone (Dexamethasone 4 Mg Tablet) 1 mg PO BIDWM [facility] Enoxaparin Sodium (Enoxaparin 40 Mg/0.4 Ml Syringe) 30 mg SUBQ DAILY [facility] Last Admin: 12/12/20 08:15 Dose: 30 mg Documented by: Finasteride (Finasteride 5 Mg Tablet) 5 mg PO DAILY [facility] Last Admin: 12/12/20 08:25 Dose: Not Given Documented by: Hydroxyzine Pamoate (Hydroxyzine Pamoate 25 Mg Capsule) 25 mg PO QPM [facility] Lactated Ringer's (Lr) 1,000 mls @ 100 mls/hr IV .Q10H [facility] Last Infusion: 12/12/20 08:50 Dose: 100 mls/hr Documented by: Ondansetron HCl (Ondansetron 4 Mg/2 Ml Vial) 4 mg IVP Q6HR PRN PRN Reason: Nausea / Vomiting Oxycodone HCl (Oxycodone 5 Mg Tablet) 5 mg PO Q4HR PRN PRN Reason: Pain 5 to 7 Oxycodone HCl (Oxycodone 5 Mg Tablet) 5 mg PO BID [facility] Last Admin: 12/12/20 08:15 Dose: 5 mg Documented by: Sodium Chloride (Sodium Chloride Flush 0.9% 10 Ml Syringe) 10 ml IVP PRN PRN PRN Reason: NEEDED PER PROVIDER ORDERS Sodium Chloride (Sodium Chloride Flush 0.9% 10 Ml Syringe) 10 ml IVP 0100,0900,1700 [facility] Last Admin: 12/12/20 08:14 Dose: Not Given Documented by: Tamsulosin HCl (Tamsulosin 0.4 Mg Capsule) 0.4 mg PO DAILY [facility] Last Admin: 12/12/20 09:20 Dose: 0.4 mg Documented by: Alfuzosin HCl [Alfuzosin HCl ER] 10 mg PO DAILY 09/03/14 Dutasteride [Avodart] 0.5 mg PO DAILY 09/03/14 Metoprolol Tartrate 10 mg PO BID 09/03/14 Pravastatin Sodium 20 mg PO DAILY 09/03/14 Cholecalciferol (Vitamin D3) [Vitamin D] 1 cap PO DAILY 10/01/15 Glucosamine/D3/Boswellia Alaina [Glucosamine Daily Complex Tab] 1 tab PO BID 10/01/15 Multivitamin [Multivitamins] 1 cap PO DAILY 10/01/15 Ubidecarenone/Vitamin E Mixed [Csi01-Aia E 100 mg-10 Unit Sfg] 1 cap PO DAILY 10/01/15 Dexamethasone [Decadron] 0.75 mg PO BID 07/13/20 Diclofenac Sodium [Voltaren] 100 gm TP PRN PRN 07/13/20 Sildenafil Citrate [Sildenafil] 20 mg PO PRN PRN 07/13/20 oxyCODONE [Roxicodone] 5 mg PO BID 07/13/20 Furosemide [Lasix] 80 mg PO BID 12/11/20 Zolpidem [Ambien] 5 mg PO DAILY 12/11/20 hydrOXYzine HCL [Hydroxyzine HCl] 25 mg PO DAILY PM 12/11/20 B-Complex with Vitamin C [Super B Complex-Vitamin C] 1 tab PO DAILY 12/12/20 Objective - Vital Signs/Intake & Output Vital Signs: Vital Signs x48h Temp Pulse Resp BP Pulse Ox 12/12/20 08:00 36.4 C L 60 16 111/76 95 12/12/20 04:47 36.6 C 60 16 126/67 95 Intake & Output: Intake & Output 12/09/20 12/10/20 12/11/20 12/12/20 23:59 23:59 23:59 23:59 Intake Total 1000 1005.000 Output Total 350 Balance 650 1005.000 - Objective General Appearance: positive: No acute distress, Alert. negative: Lethargic Eyes Bilateral: positive: Normal inspection, PERRL, No lid inflammation ENT: positive: ENT inspection nml, No signs of dehydration. negative: Purulent nasal drainage Neck: positive: Nml inspection, Trachea midline. negative: Thyromegaly, Tracheal deviation Respiratory: positive: Chest non-tender, No respiratory distress. negative: Wh eezes, Rales Cardiovascular: positive: Regular rate & rhythm, No murmur. negative: Tachycardia, Bradycardia Peripheral Pulses: 2+ Radial (R), 2+ Radial (L) Abdomen: positive: Non-tender, Nml bowel sounds, No distention. negative: Tenderness Back: positive: Nml inspection Skin: positive: Color nml, Warm, Dry. negative: Cyanosis Extremities: positive: Non-tender, Full ROM, Nml appearance. negative: No pedal edema Neurologic/Psychiatric: positive: Oriented x3, Motor nml, Sensation nml, Mood/affect nml. negative: Weakness, Sensory loss, Facial droop, Slurred/abnml speech, Depressed mood/affect - Lab Results Fish Bones: 12/11/20 20:30 12/12/20 04:35 Other Labs: Lab Results x24hrs 12/12/20 12/12/20 12/12/20 Range/Units 04:35 04:35 04:35 WBC (4.8-10.8) x10^3/uL RBC 3.22 L (4.70-6.10) 10^6/uL Hgb (14.0-18.0) g/dL Hct (42.0-52.0) % MCV (80.0-94.0) fL MCH (27.0-31.0) pg MCHC (32.0-36.0) g/dL RDW (12.0-15.0) % Plt Count (130-450) 10^3/uL MPV (7.4-11.4) fL Reticulocyte % (Auto) 0.96 (0.5-2.3) % Neut # (Auto) (1.5-6.6) 10^3/uL Lymph # (Auto) (1.5-3.5) 10^3/uL [place]oun # (Auto) (0.0-1.0) 10^3/uL Eos # (Auto) (0.0-0.7) 10^3/uL Baso # (Auto) (0.0-0.1) 10^3/uL Absolute Nucleated RBC x10^3/uL Nucleated RBC % /100WBC Absolute Retic 0.031 (0.020-0.110) 10^6/uL Sodium (135-145) mmol/L Potassium (3.5-5.0) mmol/L Chloride (101-111) mmol/L Carbon Dioxide (21-32) mmol/L Anion Gap (6-13) BUN (6-20) mg/dL Creatinine (0.6-1.2) mg/dL Estimated GFR (MDRD) (>89) Glucose (70-100) mg/dL Calcium (8.5-10.3) mg/dL Iron (45-182) ug/dL TIBC (250-450) ug/dL % Saturation (20-50) % Transferrin (180-329) mg/dL Ferritin 251.8 (23.9-336.2) ng/mL Total Bilirubin (0.2-1.0) mg/dL AST (10-42) IU/L ALT (10-60) IU/L Alkaline Phosphatase (42-121) IU/L Lactate Dehydrogenase 224 (91-225) IU/L Total Protein (6.7-8.2) g/dL Albumin (3.2-5.5) g/dL Globulin (2.1-4.2) g/dL Albumin/Globulin Ratio (1.0-2.2) Vitamin B12 1170 H (180-914) pg/mL Urine Color Urine Clarity (CLEAR) Urine pH (5.0-7.5) PH Ur Specific [place] (1.002-1.030) Urine Protein (NEGATIVE) mg/dL Urine Glucose (UA) (NEGATIVE) mg/dL Urine Ketones (NEGATIVE) mg/dL Urine Occult Blood (NEGATIVE) Urine Nitrite (NEGATIVE) Urine Bilirubin (NEGATIVE) Urine Urobilinogen (NORMAL) E.U./dL Ur Leukocyte Esterase (NEGATIVE) Urine RBC (0-5) /HPF Urine WBC (0-3) /HPF Ur Squamous Epith Cells (<= Few) Urine Bacteria (None Seen) /HPF Urine Mucus Ur Microscopic Review Urine Culture Comments Nasal Adenovirus (PCR) Nasal B. parapertussis DNA (PCR) Nasal Coronavir 229E PCR Nasal Coronavir HKU1 PCR Nasal Coronavir NL63 PCR Nasal Coronavir OC43 PCR Nasal Enterovir/Rhinovir PCR Nasal Influenza B PCR Nasal Influenza A PCR Nasal Parainfluen 1 PCR Nasal Parainfluen 2 PCR Nasal Parainfluen 3 PCR Nasal Parainfluen 4 PCR Nasal RSV (PCR) Nasal B.pertussis DNA PCR Nasal C.pneumoniae (PCR) Yassine Human Metapneumo PCR Nasal M.pneumoniae (PCR) Nasal SARS-CoV-2 (PCR) 12/12/20 12/11/20 12/11/20 Range/Units 04:35 21:00 20:30 WBC (4.8-10.8) x10^3/uL RBC (4.70-6.10) 10^6/uL Hgb (14.0-18.0) g/dL Hct (42.0-52.0) % MCV (80.0-94.0) fL MCH (27.0-31.0) pg MCHC (32.0-36.0) g/dL RDW (12.0-15.0) % Plt Count (130-450) 10^3/uL MPV (7.4-11.4) fL Reticulocyte % (Auto) (0.5-2.3) % Neut # (Auto) (1.5-6.6) 10^3/uL Lymph # (Auto) (1.5-3.5) 10^3/uL Calhoun # (Auto) (0.0-1.0) 10^3/uL Eos # (Auto) (0.0-0.7) 10^3/uL Baso # (Auto) (0.0-0.1) 10^3/uL Absolute Nucleated RBC x10^3/uL Nucleated RBC % /100WBC Absolute Retic (0.020-0.110) 10^6/uL Sodium 138 (135-145) mmol/L Potassium 3.9 (3.5-5.0) mmol/L Chloride 94 L (101-111) mmol/L Carbon Dioxide 27 (21-32) mmol/L Anion Gap 17.0 H (6-13) BUN 175 H* (6-20) mg/dL Creatinine 4.6 H (0.6-1.2) mg/dL Estimated GFR (MDRD) 12 L (>89) Glucose 130 H (70-100) mg/dL Calcium 9.6 (8.5-10.3) mg/dL Iron 85 (45-182) ug/dL TIBC 312 (250-450) ug/dL % Saturation 27 (20-50) % Transferrin 223 (180-329) mg/dL Ferritin (23.9-336.2) ng/mL Total Bilirubin (0.2-1.0) mg/dL AST (10-42) IU/L ALT (10-60) IU/L Alkaline Phosphatase (42-121) IU/L Lactate Dehydrogenase (91-225) IU/L Total Protein (6.7-8.2) g/dL Albumin (3.2-5.5) g/dL Globulin (2.1-4.2) g/dL Albumin/Globulin Ratio (1.0-2.2) Vitamin B12 (180-914) pg/mL Urine Color YELLOW Urine Clarity CLEAR (CLEAR) Urine pH 5.5 (5.0-7.5) PH Ur Specific [place] 1.020 (1.002-1.030) Urine Protein 30 H (NEGATIVE) mg/dL Urine Glucose (UA) NEGATIVE (NEGATIVE) mg/dL Urine Ketones NEGATIVE (NEGATIVE) mg/dL Urine Occult Blood NEGATIVE (NEGATIVE) Urine Nitrite NEGATIVE (NEGATIVE) Urine Bilirubin NEGATIVE (NEGATIVE) Urine Urobilinogen 0.2 (NORMAL) (NORMAL) E.U./dL Ur Leukocyte Esterase NEGATIVE (NEGATIVE) Urine RBC 0-5 (0-5) /HPF Urine WBC 0-3 (0-3) /HPF Ur Squamous Epith Cells NONE SEEN (<= Few) Urine Bacteria None Seen (None Seen) /HPF Urine Mucus Few Strands Ur Microscopic Review INDICATED Urine Culture Comments NOT INDICATED Nasal Adenovirus (PCR) NOT DETECTED Nasal B. parapertussis DNA (PCR) NOT DETECTED Nasal Coronavir 229E PCR NOT DETECTED Nasal Coronavir HKU1 PCR NOT DETECTED Nasal Coronavir NL63 PCR NOT DETECTED Nasal Coronavir OC43 PCR NOT DETECTED Nasal Enterovir/Rhinovir PCR NOT DETECTED Nasal Influenza B PCR NOT DETECTED Nasal Influenza A PCR NOT DETECTED Nasal Parainfluen 1 PCR NOT DETECTED Nasal Parainfluen 2 PCR NOT DETECTED Nasal Parainfluen 3 PCR NOT DETECTED Nasal Parainfluen 4 PCR NOT DETECTED Nasal RSV (PCR) NOT DETECTED Nasal B.pertussis DNA PCR NOT DETECTED Nasal C.pneumoniae (PCR) NOT DETECTED Yassine Human Metapneumo PCR NOT DETECTED Nasal M.pneumoniae (PCR) NOT DETECTED Nasal SARS-CoV-2 (PCR) NOT DETECTED 12/11/20 12/11/20 Range/Units 20:30 20:30 WBC 6.0 (4.8-10.8) x10^3/uL RBC 3.43 L (4.70-6.10) 10^6/uL Hgb 10.9 L (14.0-18.0) g/dL Hct 32.5 L (42.0-52.0) % MCV 94.8 H (80.0-94.0) fL MCH 31.8 H (27.0-31.0) pg MCHC 33.5 (32.0-36.0) g/dL RDW 11.9 L (12.0-15.0) % Plt Count 249 (130-450) 10^3/uL MPV 9.0 (7.4-11.4) fL Reticulocyte % (Auto) (0.5-2.3) % Neut # (Auto) 4.6 (1.5-6.6) 10^3/uL Lymph # (Auto) 0.7 L (1.5-3.5) 10^3/uL [place] # (Auto) 0.6 (0.0-1.0) 10^3/uL Eos # (Auto) 0.1 (0.0-0.7) 10^3/uL Baso # (Auto) 0.0 (0.0-0.1) 10^3/uL Absolute Nucleated RBC 0.00 x10^3/uL Nucleated RBC % 0.0 /100WBC Absolute Retic (0.020-0.110) 10^6/uL Sodium 136 (135-145) mmol/L Potassium 3.7 (3.5-5.0) mmol/L Chloride 91 L (101-111) mmol/L Carbon Dioxide 26 (21-32) mmol/L Anion Gap 19.0 H (6-13) BUN 184 H* (6-20) mg/dL Creatinine 5.5 H (0.6-1.2) mg/dL Estimated GFR (MDRD) 10 L (>89) Glucose 125 H (70-100) mg/dL Calcium 9.7 (8.5-10.3) mg/dL Iron (45-182) ug/dL TIBC (250-450) ug/dL % Saturation (20-50) % Transferrin (180-329) mg/dL Ferritin (23.9-336.2) ng/mL Total Bilirubin 0.7 (0.2-1.0) mg/dL AST 26 (10-42) IU/L ALT 20 (10-60) IU/L Alkaline Phosphatase 50 (42-121) IU/L Lactate Dehydrogenase (91-225) IU/L Total Protein 7.2 (6.7-8.2) g/dL Albumin 4.2 (3.2-5.5) g/dL Globulin 3.0 (2.1-4.2) g/dL Albumin/Globulin Ratio 1.4 (1.0-2.2) Vitamin B12 (180-914) pg/mL Urine Color Urine Clarity (CLEAR) Urine pH (5.0-7.5) PH Ur Specific [place] (1.002-1.030) Urine Protein (NEGATIVE) mg/dL Urine Glucose (UA) (NEGATIVE) mg/dL Urine Ketones (NEGATIVE) mg/dL Urine Occult Blood (NEGATIVE) Urine Nitrite (NEGATIVE) Urine Bilirubin (NEGATIVE) Urine Urobilinogen (NORMAL) E.U./dL Ur Leukocyte Esterase (NEGATIVE) Urine RBC (0-5) /HPF Urine WBC (0-3) /HPF Ur Squamous Epith Cells (<= Few) Urine Bacteria (None Seen) /HPF Urine Mucus Ur Microscopic Review Urine Culture Comments Nasal Adenovirus (PCR) Nasal B. parapertussis DNA (PCR) Nasal Coronavir 229E PCR Nasal Coronavir HKU1 PCR Nasal Coronavir NL63 PCR Nasal Coronavir OC43 PCR Nasal Enterovir/Rhinovir PCR Nasal Influenza B PCR Nasal Influenza A PCR Nasal Parainfluen 1 PCR Nasal Parainfluen 2 PCR Nasal Parainfluen 3 PCR Nasal Parainfluen 4 PCR Nasal RSV (PCR) Nasal B.pertussis DNA PCR Nasal C.pneumoniae (PCR) Yassine Human Metapneumo PCR Nasal M.pneumoniae (PCR) Nasal SARS-CoV-2 (PCR) ABX Reporting Has patient been on IV antibiotics over the past 48 hours?: No Sepsis Event Note (H) - Evaluation Current Stage of Sepsis: Ruled out Assessment/Plan - Problem List (1) Acute renal failure superimposed on stage 4 chronic kidney disease Impression: pt had creatinine 4.6 on today and reduced from 5.5 on yesterday, BUN 175 from yesterday 184. called pt's railcar switcher, and will continue gently hydration, continue hold his home diuretics now, closely vital monitor and lab monitor. (2) Anemia will check FOBT and check anemia panel. pt has hx of acute on chronic renal failure. (3) Chronic pain disorder Conclusion/Plan: Resume his usual oxycodone 5 mg p.o. twice daily. (4) BPH w urinary obs/LUTS Conclusion/Plan: stable, resume home meds. Qualifiers: Acute renal failure type: unspecified Qualified Code(s): N17.9 - Acute kidney failure, unspecified; N18.4 - Chronic kidney disease, stage 4 (severe)
[2020-12-12 11:54] LABS: ABSOLUTE RETICS # AUTO 0.033 10^6/uL (0.020-0.110); BASOPHILS % (AUTO) 0.2 %; EOSINOPHILS # (AUTO) 0.1 10^3/uL (0.0-0.7); EOSINOPHILS % (AUTO) 1.2 %; HCT - HEMATOCRIT 32.4 % (42.0-52.0); HGB - HEMOGLOBIN 10.9 g/dL (14.0-18.0); LYMPHOCYTES # (AUTO) 0.6 10^3/uL (1.5-3.5); MEAN CORPUSCULAR HGB CONC 33.6 g/dL (32.0-36.0); MEAN PLATELET VOLUME 8.9 fL (7.4-11.4); MONOCYTES # (AUTO) 0.4 10^3/uL (0.0-1.0); MONOCYTES % (AUTO) 9.1 %; NEUTROPHILS # (AUTO) 3.7 10^3/uL (1.5-6.6); NEUTROPHILS % (AUTO) 76.3 %; PLT - PLATELET COUNT 248 10^3/uL (130-450); RED BLOOD COUNT 3.41 10^6/uL (4.70-6.10); RED CELL DISTRIBUTION WIDTH 11.9 % (12.0-15.0); RETICULOCYTE COUNT % (AUTO) 0.97 % (0.5-2.3); WHITE BLOOD COUNT 4.8 x10^3/uL (4.8-10.8)
[2020-12-12 12:30] LABS: % IRON SATURATION 30 % (20-50); IRON 100 ug/dL (45-182); TOTAL IRON BINDING CAPACITY 330 ug/dL (250-450); TRANSFERRIN 236 mg/dL (180-329)
[2020-12-12 12:36] LABS: FERRITIN 427.1 ng/mL (23.9-336.2)
--- NOTE | 2020-12-12 14:21 | PHARMACY PROGRESS NOTE ---
- Best Possible Medication History Admit Date and Time: 12/12/20 1038 Processed by: Nursing As the person ultimately responsible for medication therapy, providers are able to order a medication from an existing home medication list in [facility] via the "Reconcile Routine" prior to Confirmation of that medication by applications support analyst. Such practice is discouraged except when the physician, in their clinical judgment, deems that a medical need exists for a medication without regard to previous use.
[2020-12-12] MEDS: dexAMETHasone 4 MG TABLET PO SCH (16:15)
[2020-12-12] MEDS ORDERED: hydrOXYzine PAMOATE 25 MG CAPSULE PO SCH (21:00)
[2020-12-13] MEDS: SODIUM CHLORIDE FLUSH 0.9% 10 ML SYRINGE IVP SCH ×2 (02:37→08:16)
[2020-12-13 05:17] LABS: BASOPHILS % (AUTO) 0.5 %; EOSINOPHILS # (AUTO) 0.1 10^3/uL (0.0-0.7); EOSINOPHILS % (AUTO) 1.2 %; HCT - HEMATOCRIT 31.1 % (42.0-52.0); HGB - HEMOGLOBIN 10.1 g/dL (14.0-18.0); LYMPHOCYTES # (AUTO) 0.6 10^3/uL (1.5-3.5); LYMPHOCYTES % (AUTO) 13.5 %; MEAN CORPUSCULAR HEMOGLOBIN 31.5 pg (27.0-31.0); MEAN CORPUSCULAR HGB CONC 32.5 g/dL (32.0-36.0); MEAN CORPUSCULAR VOLUME 96.9 fL (80.0-94.0); MEAN PLATELET VOLUME 8.8 fL (7.4-11.4); MONOCYTES # (AUTO) 0.4 10^3/uL (0.0-1.0); MONOCYTES % (AUTO) 9.7 %; NEUTROPHILS # (AUTO) 3.2 10^3/uL (1.5-6.6); NEUTROPHILS % (AUTO) 74.4 %; PLT - PLATELET COUNT 221 10^3/uL (130-450); RED BLOOD COUNT 3.21 10^6/uL (4.70-6.10); RED CELL DISTRIBUTION WIDTH 11.8 % (12.0-15.0); WHITE BLOOD COUNT 4.3 x10^3/uL (4.8-10.8)
[2020-12-13] MEDS: LACTATED RINGERS 1,000 ML IV SCH (05:17)
[2020-12-13 05:40] LABS: CALCIUM 9.7 mg/dL (8.5-10.3); CREATININE 3.7 mg/dL (0.6-1.2); POTASSIUM 3.5 mmol/L (3.5-5.0)
[2020-12-13] MEDS ORDERED: LACTATED RINGERS 1,000 ML IV SCH (07:27)
[2020-12-13 08:03] VITALS: BP 145/86
[2020-12-13] MEDS: TAMSULOSIN 0.4 MG CAPSULE PO SCH (08:15)
[2020-12-13] MEDS: dexAMETHasone 4 MG TABLET PO SCH (08:15)
[2020-12-13] MEDS: oxyCODONE 5 MG TABLET PO SCH (08:15)
[2020-12-13] MEDS: ENOXAPARIN 40 MG/0.4 ML SYRINGE SUBQ SCH (08:16)
[2020-12-13] MEDS: FINASTERIDE 5 MG TABLET PO SCH (08:20)
--- NOTE | 2020-12-13 08:33 | Discharge Plan ---
Discharge Plan Problem Reviewed?: Yes Disposition: Home, Self Care Condition: Stable Prescriptions: Furosemide [Lasix] 80 mg PO DAILY #30 tablet Diet: Low Sodium Activity Restrictions: Activity as Tolerated Shower Restrictions: No (fall precaution) Instruction Topics: Injury Acute Kidney Dc, Furosemide tablets, Kidney Disease Fluids Health Concerns: After discussed the care plan with you and your sole inker, your home Lasix dosage is reduced to 80mg daily. The new prescription Lasix is sent to your pharmacy [facility]. Your sole inker hope to see you on his office on next week. Plan of Treatment: as the above Care Goals: stabilization and improvement of your medical conditions Assessment: discussed the care plan with you, answered your questions. Additional Instructions or Follow Up instructions: You may followup with your PCP in one week, and have lab test to recheck your kidney function. you may followup with your sole inker in next week. Should your symptoms return or worsen, you may present ER or call 911 for help. No Smoking: If you smoke, Please STOP! Call for help. Follow-up with: Isma Rodriguez MD [Primary Care Provider] -
--- NOTE | 2020-12-13 08:45 | DISCHARGE SUMMARY ---
Discharge Summary Admit Date: 12/11/20 Discharge Date: 12/13/20 Discharging Provider: Domingo Florence Primary Care Provider: Isma Martinez Condition at Discharge: Stable Discharge Disposition: 01 Home, Self Care Discharge Facility Name: home - DIAGNOSES Discharge Diagnoses with Status of Each Condition: (1) Acute renal failure superimposed on stage 4 chronic kidney disease great improved. creatinine 3.7 today from 5.5 at the admission. pt is Hemodynamic stable. called pt's senior hris analyst Dr. Culver, he agreed pt can be d/c to home and followup with his office in next week. pt already text to his office to make the appointment. Dr. Culver recommended to reduce pt's Lasix to 80mg daily from previous 80mg bid. Pt asked new prescribe Lasix 80 mg daily for him. (2) Anemia stable (3) Chronic pain disorder stable, resume home meds (4) BPH w urinary obs/LUTS stable, resume home meds. - HPI History of Present Illness: refer from Dr. Lezama's HPI on 12/11/20 He is a 80-year-old white male that has chronic kidney disease and recently had medication adjustment by his senior hris analyst, Dr. Shawn Culver. His Lasix was doubled and metolazone was added. The patient has been compliant with this change, but started having fatigue, weakness. His senior hris analyst did lab work last (today is Thursday) and stopped his lisinopril and cut back on the diuretics. He had more blood work today, and later Dr. Culver called him to tell him he needed to come to the emergency room because of the lab work findings. His baseline creatinine is in the 3s and it is now 5.5. Baseline BUN is 90 and it's [address] Rosario, in the emergency room, has spoken to Dr. Culver and he is requesting the patient be placed in observation for hydration. If his BUN and creatinine do not respond tomorrow morning to please give Dr. Culver a call tomorrow and he would probably asked the patient be transferred to [facility]. The patient is already starting to be scheduled for the preliminary appointments to get him ready for peritoneal dialysis in anticipation of worsening kidney function. He denies orthopnea. He has chronic dyspnea on exertion where if he walks slightly uphill he gets bad. However he walks on level ground he is perfectly fine without any change in the last year or 2. He has no chest pain, palpitations. He has chronic leg edema which worsened in the last few months but improved with the doubling of the diuretics. In the emergency room temperature was 36.4. Heart rate 85. Blood pressure 106/66. Respirations 20 and 94% on room air. BUN is 184, creatinine is 5.5. Hemoglobin is 10.10. In July 2020 he was 12.8. In October 2019 he was 13.7. He denies black stools, change in his bowel habits. He has no history of ulcers. Does take diclofenac cream and Decadron 0.75 twice daily. But he denies taking [id number] nonsteroidals. - HOSPITAL COURSE Hospital Course: Patient was admitted for acute on chronic renal failure. pt was alert and oriented plus 4 at the discharge. After the intravenous hydration, patient's creatinine was 3.7 from 5.5 at his admission. After discussed the care plan with patient's senior hris analyst Dr. Culver, He agreed patient can be discharged and follow-up with his office next week, He also recommended reduce patient's Lasix 80 mg daily from previous Lasix 80 mg twice daily. pt really want to be d/c to home today. pt was Discharge as a hemodynamic stable condition - ALLERGIES Allergies/Adverse Reactions: Allergies Allergy/AdvReac Type Severity Reaction Status Date / Time Sulfa (Sulfonamide Allergy Rash Verified 07/13/20 08:37 Antibiotics) - MEDICATIONS Home Medications: Ambulatory Orders Medication Instructions Recorded Confirmed Alfuzosin HCl [Alfuzosin HCl ER] 10 mg PO DAILY 09/03/14 12/11/20 Dutasteride [Avodart] 0.5 mg PO DAILY 09/03/14 12/11/20 Metoprolol Tartrate 10 mg PO BID 09/03/14 12/11/20 Pravastatin Sodium 20 mg PO DAILY 09/03/14 12/11/20 Cholecalciferol (Vitamin D3) 1 cap PO DAILY 10/01/15 12/11/20 [Vitamin D3] Glucosamine/D3/Boswellia Alaina 1 tab PO BID 10/01/15 12/12/20 [Glucosamine Daily Complex Tab] Multivitamin [Multivitamins] 1 cap PO DAILY 10/01/15 12/11/20 Ubidecarenone/Vitamin E Mixed 1 cap PO DAILY 10/01/15 12/11/20 [[id number]-Ihb E 100 mg-10 Unit Sfg] Dexamethasone [Decadron] 0.75 mg PO BID 07/13/20 12/11/20 Diclofenac Sodium [Voltaren] 100 gm TP PRN PRN 07/13/20 12/11/20 Sildenafil Citrate [Sildenafil] 20 mg PO PRN PRN 07/13/20 12/11/20 oxyCODONE [Roxicodone] 5 mg PO BID 07/13/20 12/11/20 Zolpidem [Ambien] 5 mg PO DAILY 12/11/20 12/11/20 hydrOXYzine HCL [Hydroxyzine HCl] 25 mg PO DAILY PM 12/11/20 12/11/20 B-Complex with Vitamin C [Super B 1 tab PO DAILY 12/12/20 12/12/20 Complex-Vitamin C] Furosemide [Lasix] 80 mg PO DAILY #30 tablet 12/13/20 - PHYSICAL EXAM AT DISCHARGE General Appearance: positive: No acute distress, Alert. negative: Lethargic Eyes Bilateral: positive: Normal inspection, PERRL, No lid inflammation ENT: positive: ENT inspection nml, No signs of dehydration. negative: Purulent nasal drainage Neck: positive: Nml inspection, Trachea midline. negative: Thyromegaly, Tracheal deviation Respiratory: positive: Chest non-tender, No respiratory distress. negative: Wheezes, Rales, Rhonchi Cardiovascular: positive: Regular rate & rhythm, No murmur. negative: Tachycardia, Bradycardia, Systolic murmur, Diastolic murmur Peripheral Pulses: positive: 2+ Abdomen: positive: Non-tender, Nml bowel sounds, No distention. negative: Tenderness Back: positive: Nml inspection Skin: positive: Color nml, Warm, Dry. negative: Cyanosis Extremities: positive: Non-tender, Full ROM, Nml appearance, No pedal edema. negative: Pedal edema, Calf tenderness Neurologic/Psychiatric: positive: Oriented x3, Motor nml, Sensation nml, Mood/affect nml. negative: Weakness, Sensory loss, Facial droop, Slurred/abnml speech, Depressed mood/affect - LABS Result Diagrams: 12/13/20 05:10 12/13/20 05:10 - SEPSIS Current Stage of Sepsis: Ruled out - FOLLOW UP Follow Up: After discussed the care plan with you and your senior hris analyst, your home Lasix dosage is reduced to 80mg daily. The new prescription Lasix is sent to your pharmacy [facility]. Your senior hris analyst hope to see you on his office on next week. You may followup with your PCP in one week, and have lab test to recheck your kidney function. you may followup with your senior hris analyst in next week. Should your symptoms return or worsen, you may present ER or call 911 for help. - TIME SPENT Time Spent in Discharge (Minutes): 30
== END 2020-12-13 10:27 | disposition home or self-care (01) | DRG 684 ==
LOC: ED 20:10 → MS2 21:45 → OBSVTOIN 12-12 10:38
PROVIDERS: ADMIT Specialist; ATTEND Nurse Practitioner Gerontology
DX: N17.9 Acute kidney failure, unspecified (principal); I12.9 Hypertensive chronic kidney disease with stage 1 through stage 4 chronic kidney disease, or unspecified chronic kidney disease; N18.4 Chronic kidney disease, stage 4 (severe); D64.9 Anemia, unspecified; E78.00 Pure hypercholesterolemia, unspecified; I87.2 Venous insufficiency (chronic) (peripheral); N40.1 Benign prostatic hyperplasia with lower urinary tract symptoms; R33.8 Other retention of urine; R35.0 Frequency of micturition; R35.1 Nocturia; R39.15 Urgency of urination; R31.9 Hematuria, unspecified; N52.9 Male erectile dysfunction, unspecified; D30.02 Benign neoplasm of left kidney; H54.7 Unspecified visual loss; G89.29 Other chronic pain; M54.9 Dorsalgia, unspecified; M19.90 Unspecified osteoarthritis, unspecified site; G47.00 Insomnia, unspecified; L30.9 Dermatitis, unspecified; Z66 Do not resuscitate; Z98.1 Arthrodesis status; Z87.891 Personal history of nicotine dependence; Z20.822 Contact with and (suspected) exposure to COVID-19; Z79.52 Long term (current) use of systemic steroids; Z79.891 Long term (current) use of opiate analgesic; Z79.899 Other long term (current) drug therapy
CPT/HCPCS: 36415; 80048; 80053; 80069; 81001; 82607; 82728; 83540; 83615; 84466; 85025; 85045; 87631; 96360; 96372; 99283; 99285; A9270; G0378; J1650; J7120; J8540; 0202U; 81003; 87086

== ENCOUNTER 2020-12-17 08:00 | Outpatient (CLI) | payer MEDICARE, OTHER ==
[2020-12-17 19:11] LABS: ALBUMIN 3.9 g/dL (3.2-5.5); CALCIUM 10.1 mg/dL (8.5-10.3); CREATININE 3.7 mg/dL (0.6-1.2); PHOSPHORUS 4.1 mg/dL (2.5-4.6); POTASSIUM 4.2 mmol/L (3.5-5.0)
== END 2020-12-17 23:59 | disposition home or self-care (01) ==
LOC: LAB.WCP 08:00
PROVIDERS: ATTEND Internal Medicine
DX: N18.4 Chronic kidney disease, stage 4 (severe) (principal)
CPT/HCPCS: 36415; 80069

== ENCOUNTER 2020-12-24 08:00 | Outpatient (CLI) | payer MEDICARE, OTHER ==
[2020-12-24 12:42] LABS: CALCIUM 9.7 mg/dL (8.5-10.3); CREATININE 2.5 mg/dL (0.6-1.2); PHOSPHORUS 2.8 mg/dL (2.5-4.6)
== END 2020-12-24 23:59 | disposition home or self-care (01) ==
LOC: LAB.WCP 08:00
PROVIDERS: ATTEND Internal Medicine
DX: N18.4 Chronic kidney disease, stage 4 (severe) (principal)
CPT/HCPCS: 36415; 80069

== ENCOUNTER 2020-12-26 11:20 | Outpatient (CLI) | payer MEDICARE, OTHER | END 2020-12-26 11:21 | disposition home or self-care (01) | LOC: NS 11:20 | PROVIDERS: ATTEND Internal Medicine | DX: Z71.3 Dietary counseling and surveillance (principal); I12.9 Hypertensive chronic kidney disease with stage 1 through stage 4 chronic kidney disease, or unspecified chronic kidney disease; N18.4 Chronic kidney disease, stage 4 (severe) | CPT/HCPCS: 97802 ==

== ENCOUNTER 2021-01-01 08:00 | Outpatient (CLI) | payer MEDICARE, OTHER ==
[2021-01-01 18:26] LABS: ALBUMIN 3.7 g/dL (3.2-5.5); CALCIUM 9.8 mg/dL (8.5-10.3); CREATININE 2.4 mg/dL (0.6-1.2); PHOSPHORUS 3.4 mg/dL (2.5-4.6); POTASSIUM 4.3 mmol/L (3.5-5.0)
== END 2021-01-01 23:59 | disposition home or self-care (01) ==
LOC: LAB.WCP 08:00
PROVIDERS: ATTEND Internal Medicine Nephrology
DX: N18.4 Chronic kidney disease, stage 4 (severe) (principal)
CPT/HCPCS: 36415; 80069

== ENCOUNTER 2021-01-16 08:00 | Outpatient (CLI) | payer MEDICARE, OTHER ==
[2021-01-16 18:15] LABS: ALBUMIN 3.9 g/dL (3.2-5.5); CALCIUM 9.5 mg/dL (8.5-10.3); CREATININE 2.7 mg/dL (0.6-1.2); PHOSPHORUS 3.6 mg/dL (2.5-4.6); POTASSIUM 4.1 mmol/L (3.5-5.0)
== END 2021-01-16 23:59 | disposition home or self-care (01) ==
LOC: LAB.WCP 08:00
PROVIDERS: ATTEND Internal Medicine
DX: N18.4 Chronic kidney disease, stage 4 (severe) (principal)
CPT/HCPCS: 36415; 80069

== ENCOUNTER 2021-01-25 08:00 | Outpatient (CLI) | payer MEDICARE, OTHER ==
[2021-01-25 18:33] LABS: ALBUMIN 3.9 g/dL (3.2-5.5); CALCIUM 9.5 mg/dL (8.5-10.3); CREATININE 2.3 mg/dL (0.6-1.2); PHOSPHORUS 3.8 mg/dL (2.5-4.6); POTASSIUM 4.2 mmol/L (3.5-5.0)
== END 2021-01-25 23:59 | disposition home or self-care (01) ==
LOC: LAB.WCP 08:00
PROVIDERS: ATTEND Internal Medicine Nephrology
DX: N18.4 Chronic kidney disease, stage 4 (severe) (principal)
CPT/HCPCS: 36415; 80069

== ENCOUNTER 2021-02-11 08:00 | Outpatient (CLI) | payer MEDICARE, OTHER ==
[2021-02-11 18:12] LABS: ALBUMIN 3.9 g/dL (3.2-5.5); CALCIUM 9.4 mg/dL (8.5-10.3); CREATININE 2.3 mg/dL (0.6-1.2); PHOSPHORUS 3.7 mg/dL (2.5-4.6); POTASSIUM 4.1 mmol/L (3.5-5.0)
== END 2021-02-11 23:59 | disposition home or self-care (01) ==
LOC: LAB.WCP 08:00
PROVIDERS: ATTEND Internal Medicine Nephrology
DX: N18.4 Chronic kidney disease, stage 4 (severe) (principal)
CPT/HCPCS: 36415; 80069

== ENCOUNTER 2021-02-19 08:00 | Outpatient (CLI) | payer MEDICARE, OTHER ==
[2021-02-19 13:18] LABS: ALBUMIN 3.9 g/dL (3.2-5.5); CALCIUM 9.9 mg/dL (8.5-10.3); CREATININE 2.5 mg/dL (0.6-1.2); PHOSPHORUS 4.2 mg/dL (2.5-4.6); POTASSIUM 3.9 mmol/L (3.5-5.0)
== END 2021-02-19 23:59 | disposition home or self-care (01) ==
LOC: LAB.WCP 08:00
PROVIDERS: ATTEND Internal Medicine
DX: N18.4 Chronic kidney disease, stage 4 (severe) (principal)
CPT/HCPCS: 36415; 80069

== ENCOUNTER 2021-03-06 08:00 | Outpatient (CLI) | payer MEDICARE, OTHER ==
[2021-03-06 17:50] LABS: ALBUMIN 3.8 g/dL (3.2-5.5); BILIRUBIN,DIRECT 0.1 mg/dL (0.1-0.5); BILIRUBIN,TOTAL 0.8 mg/dL (0.2-1.0)
== END 2021-03-06 23:59 | disposition home or self-care (01) ==
LOC: LAB.WCP 08:00
PROVIDERS: ATTEND Internal Medicine
DX: N18.4 Chronic kidney disease, stage 4 (severe) (principal)
CPT/HCPCS: 36415; 80076

== ENCOUNTER 2021-03-08 08:00 | Outpatient (CLI) | payer MEDICARE, OTHER ==
[2021-03-08 17:59] LABS: CALCIUM 9.4 mg/dL (8.5-10.3); CREATININE 2.8 mg/dL (0.6-1.2); PHOSPHORUS 4.6 mg/dL (2.5-4.6); POTASSIUM 3.4 mmol/L (3.5-5.0)
== END 2021-03-08 23:59 | disposition home or self-care (01) ==
LOC: LAB.WCP 08:00
PROVIDERS: ATTEND Internal Medicine
DX: N18.4 Chronic kidney disease, stage 4 (severe) (principal)
CPT/HCPCS: 36415; 80069

== ENCOUNTER 2021-03-19 08:00 | Outpatient (CLI) | payer MEDICARE, OTHER ==
[2021-03-19 19:01] LABS: ALBUMIN 3.9 g/dL (3.2-5.5); CALCIUM 9.4 mg/dL (8.5-10.3); CREATININE 2.6 mg/dL (0.6-1.2); PHOSPHORUS 3.9 mg/dL (2.5-4.6)
== END 2021-03-19 23:59 | disposition home or self-care (01) ==
LOC: LAB.WCP 08:00
PROVIDERS: ATTEND Internal Medicine
DX: N18.4 Chronic kidney disease, stage 4 (severe) (principal)
CPT/HCPCS: 36415; 80069

== ENCOUNTER 2021-04-01 11:36 | Outpatient (CLI) | payer MEDICARE, OTHER ==
[2021-04-01 19:14] LABS: ALBUMIN 3.9 g/dL (3.2-5.5); CALCIUM 9.7 mg/dL (8.5-10.3); CREATININE 3.2 mg/dL (0.6-1.2); PHOSPHORUS 4.9 mg/dL (2.5-4.6); POTASSIUM 3.1 mmol/L (3.5-5.0)
== END 2021-04-01 23:59 | disposition home or self-care (01) ==
LOC: LAB.WCP 11:36
PROVIDERS: ATTEND Internal Medicine
DX: N18.4 Chronic kidney disease, stage 4 (severe) (principal)
CPT/HCPCS: 36415; 80069

== ENCOUNTER 2021-04-09 08:00 | Outpatient (CLI) | payer MEDICARE, OTHER ==
[2021-04-09 17:52] LABS: BASOPHILS % (AUTO) 0.3 %; EOSINOPHILS % (AUTO) 0.7 %; HCT - HEMATOCRIT 38.8 % (42.0-52.0); HGB - HEMOGLOBIN 12.3 g/dL (14.0-18.0); LYMPHOCYTES # (AUTO) 0.8 10^3/uL (1.5-3.5); LYMPHOCYTES % (AUTO) 13.6 %; MEAN CORPUSCULAR HEMOGLOBIN 30.9 pg (27.0-31.0); MEAN CORPUSCULAR HGB CONC 31.7 g/dL (32.0-36.0); MEAN CORPUSCULAR VOLUME 97.5 fL (80.0-94.0); MEAN PLATELET VOLUME 9.6 fL (7.4-11.4); MONOCYTES # (AUTO) 0.6 10^3/uL (0.0-1.0); MONOCYTES % (AUTO) 10.5 %; NEUTROPHILS # (AUTO) 4.5 10^3/uL (1.5-6.6); NEUTROPHILS % (AUTO) 74.2 %; PLT - PLATELET COUNT 288 10^3/uL (130-450); RED BLOOD COUNT 3.98 10^6/uL (4.70-6.10); RED CELL DISTRIBUTION WIDTH 12.7 % (12.0-15.0)
[2021-04-09 18:11] LABS: ALBUMIN 3.6 g/dL (3.2-5.5); CALCIUM 9.5 mg/dL (8.5-10.3); CREATININE 2.7 mg/dL (0.6-1.2); PHOSPHORUS 3.4 mg/dL (2.5-4.6); POTASSIUM 3.6 mmol/L (3.5-5.0)
== END 2021-04-09 23:59 | disposition home or self-care (01) ==
LOC: LAB.WCP 08:00
PROVIDERS: ATTEND Internal Medicine
DX: N18.4 Chronic kidney disease, stage 4 (severe) (principal)
CPT/HCPCS: 36415; 80069; 82306; 83970; 85025

== ENCOUNTER 2021-04-22 10:26 | Outpatient (CLI) | payer MEDICARE, OTHER ==
[2021-04-22 18:13] LABS: ALBUMIN 3.9 g/dL (3.2-5.5); CREATININE 2.5 mg/dL (0.6-1.2); PHOSPHORUS 3.6 mg/dL (2.5-4.6); POTASSIUM 3.4 mmol/L (3.5-5.0)
== END 2021-04-22 23:59 | disposition home or self-care (01) ==
LOC: LAB.WCP 10:26
PROVIDERS: ATTEND Internal Medicine
DX: N18.4 Chronic kidney disease, stage 4 (severe) (principal)
CPT/HCPCS: 36415; 80069

== ENCOUNTER 2021-04-29 11:48 | Outpatient (CLI) | payer MEDICARE, OTHER ==
[2021-04-29 18:33] LABS: ALBUMIN 3.9 g/dL (3.2-5.5); CALCIUM 9.5 mg/dL (8.5-10.3); CREATININE 2.8 mg/dL (0.6-1.2); POTASSIUM 3.5 mmol/L (3.5-5.0)
== END 2021-04-29 23:59 | disposition home or self-care (01) ==
LOC: LAB.WCP 11:48
PROVIDERS: ATTEND Internal Medicine Nephrology
DX: N18.4 Chronic kidney disease, stage 4 (severe) (principal)
CPT/HCPCS: 36415; 80069; 83970

== ENCOUNTER 2021-05-13 12:24 | Outpatient (CLI) | payer MEDICARE, OTHER ==
[2021-05-13 19:06] LABS: CREATININE 2.9 mg/dL (0.6-1.2); PHOSPHORUS 3.8 mg/dL (2.5-4.6); POTASSIUM 3.4 mmol/L (3.5-5.0)
[2021-05-13 20:47] LABS: ESTIMATED AVERAGE GLUCOSE 146 mg/dL (70-100); HEMOGLOBIN A1c% 6.7 % (4.27-6.07)
== END 2021-05-13 23:59 | disposition home or self-care (01) ==
LOC: LAB.WCP 12:24
PROVIDERS: ATTEND Family Medicine
DX: R73.9 Hyperglycemia, unspecified (principal); N18.4 Chronic kidney disease, stage 4 (severe)
CPT/HCPCS: 36415; 80069; 83036

== ENCOUNTER 2021-05-24 10:39 | Outpatient (CLI) | payer MEDICARE, OTHER ==
[2021-05-24 18:31] LABS: ALBUMIN 3.9 g/dL (3.2-5.5); CALCIUM 9.8 mg/dL (8.5-10.3); CREATININE 2.7 mg/dL (0.6-1.2); PHOSPHORUS 4.1 mg/dL (2.5-4.6); POTASSIUM 3.5 mmol/L (3.5-5.0)
== END 2021-05-24 23:59 | disposition home or self-care (01) ==
LOC: LAB.WCP 10:39
PROVIDERS: ATTEND Internal Medicine
DX: N18.4 Chronic kidney disease, stage 4 (severe) (principal)
CPT/HCPCS: 36415; 80069

== ENCOUNTER 2021-06-04 10:42 | Outpatient (CLI) | payer MEDICARE, OTHER ==
[2021-06-04 19:02] LABS: ALBUMIN 4.1 g/dL (3.2-5.5); CALCIUM 10.2 mg/dL (8.5-10.3); CREATININE 3.2 mg/dL (0.6-1.2); PHOSPHORUS 5.2 mg/dL (2.5-4.6); POTASSIUM 3.2 mmol/L (3.5-5.0)
== END 2021-06-04 23:59 | disposition home or self-care (01) ==
LOC: LAB.WCP 10:42
PROVIDERS: ATTEND Internal Medicine
DX: N18.4 Chronic kidney disease, stage 4 (severe) (principal)
CPT/HCPCS: 36415; 80069

== ENCOUNTER 2021-06-07 11:07 | Outpatient (CLI) | payer MEDICARE, OTHER ==
[2021-06-07 18:24] LABS: ALBUMIN 3.9 g/dL (3.2-5.5); CALCIUM 9.8 mg/dL (8.5-10.3); PHOSPHORUS 4.3 mg/dL (2.5-4.6); POTASSIUM 3.3 mmol/L (3.5-5.0)
== END 2021-06-07 23:59 | disposition home or self-care (01) ==
LOC: LAB.WCP 11:07
PROVIDERS: ATTEND Internal Medicine
DX: N18.4 Chronic kidney disease, stage 4 (severe) (principal)
CPT/HCPCS: 36415; 80069

== ENCOUNTER 2021-06-24 10:52 | Outpatient (CLI) | payer MEDICARE, OTHER ==
[2021-06-24 18:28] LABS: ALBUMIN 3.8 g/dL (3.2-5.5); CALCIUM 9.6 mg/dL (8.5-10.3); CREATININE 2.5 mg/dL (0.6-1.2); PHOSPHORUS 3.5 mg/dL (2.5-4.6); POTASSIUM 4.1 mmol/L (3.5-5.0)
== END 2021-06-24 23:59 | disposition home or self-care (01) ==
LOC: LAB.WCP 10:52
PROVIDERS: ATTEND Internal Medicine
DX: N18.4 Chronic kidney disease, stage 4 (severe) (principal)
CPT/HCPCS: 36415; 80069

== ENCOUNTER 2021-07-08 11:39 | Outpatient (CLI) | payer MEDICARE, OTHER ==
[2021-07-08 18:28] LABS: ALBUMIN 3.8 g/dL (3.2-5.5); CALCIUM 9.8 mg/dL (8.5-10.3); CREATININE 3.1 mg/dL (0.6-1.2); PHOSPHORUS 4.4 mg/dL (2.5-4.6); POTASSIUM 3.3 mmol/L (3.5-5.0)
== END 2021-07-08 23:59 | disposition home or self-care (01) ==
LOC: LAB.WCP 11:39
PROVIDERS: ATTEND Internal Medicine
DX: N18.4 Chronic kidney disease, stage 4 (severe) (principal)
CPT/HCPCS: 36415; 80069

== ENCOUNTER 2021-07-12 10:37 | Outpatient (CLI) | payer MEDICARE, OTHER ==
[2021-07-12 18:06] LABS: BASOPHILS % (AUTO) 0.6 %; EOSINOPHILS # (AUTO) 0.1 10^3/uL (0.0-0.7); EOSINOPHILS % (AUTO) 0.9 %; HCT - HEMATOCRIT 36.1 % (42.0-52.0); HGB - HEMOGLOBIN 11.5 g/dL (14.0-18.0); LYMPHOCYTES # (AUTO) 0.7 10^3/uL (1.5-3.5); LYMPHOCYTES % (AUTO) 10.5 %; MEAN CORPUSCULAR HEMOGLOBIN 30.3 pg (27.0-31.0); MEAN CORPUSCULAR HGB CONC 31.9 g/dL (32.0-36.0); MEAN CORPUSCULAR VOLUME 95.3 fL (80.0-94.0); MEAN PLATELET VOLUME 9.4 fL (7.4-11.4); MONOCYTES # (AUTO) 0.6 10^3/uL (0.0-1.0); MONOCYTES % (AUTO) 9.5 %; NEUTROPHILS # (AUTO) 5.1 10^3/uL (1.5-6.6); NEUTROPHILS % (AUTO) 77.7 %; PLT - PLATELET COUNT 323 10^3/uL (130-450); RED BLOOD COUNT 3.79 10^6/uL (4.70-6.10); RED CELL DISTRIBUTION WIDTH 13.3 % (12.0-15.0); WHITE BLOOD COUNT 6.6 x10^3/uL (4.8-10.8)
[2021-07-12 18:20] LABS: ALBUMIN 3.8 g/dL (3.2-5.5); CALCIUM 9.5 mg/dL (8.5-10.3); CREATININE 2.8 mg/dL (0.6-1.2); PHOSPHORUS 3.3 mg/dL (2.5-4.6); POTASSIUM 3.3 mmol/L (3.5-5.0)
== END 2021-07-12 23:59 | disposition home or self-care (01) ==
LOC: LAB.WCP 10:37
PROVIDERS: ATTEND Internal Medicine
DX: N18.4 Chronic kidney disease, stage 4 (severe) (principal)
CPT/HCPCS: 36415; 80069; 82306; 83970; 85025

== ENCOUNTER 2021-08-05 08:00 | Outpatient (CLI) | payer MEDICARE, OTHER ==
[2021-08-05 20:54] LABS: CALCIUM 9.7 mg/dL (8.5-10.3); CREATININE 2.8 mg/dL (0.6-1.2); PHOSPHORUS 4.1 mg/dL (2.5-4.6); POTASSIUM 3.4 mmol/L (3.5-5.0)
== END 2021-08-05 23:59 ==
LOC: LAB.WCP 08:00
PROVIDERS: ATTEND Internal Medicine
DX: N18.4 Chronic kidney disease, stage 4 (severe) (principal)
CPT/HCPCS: 36415; 80069

== ENCOUNTER 2021-08-12 08:00 | Outpatient (CLI) | payer MEDICARE, OTHER ==
[2021-08-12 12:56] LABS: ALBUMIN 4.2 g/dL (3.2-5.5); CALCIUM 10.5 mg/dL (8.5-10.3); PHOSPHORUS 4.6 mg/dL (2.5-4.6); POTASSIUM 3.2 mmol/L (3.5-5.0)
== END 2021-08-12 23:59 ==
LOC: LAB.WCP 08:00
PROVIDERS: ATTEND Internal Medicine
DX: N18.4 Chronic kidney disease, stage 4 (severe) (principal)
CPT/HCPCS: 36415; 80069

== ENCOUNTER 2021-08-21 07:00 | Outpatient (CLI) | payer MEDICARE, OTHER ==
[2021-08-21 18:53] LABS: ALBUMIN 3.8 g/dL (3.2-5.5); CREATININE 2.5 mg/dL (0.6-1.2); PHOSPHORUS 3.4 mg/dL (2.5-4.6); POTASSIUM 3.9 mmol/L (3.5-5.0)
== END 2021-08-21 23:59 | disposition home or self-care (01) ==
LOC: LAB.WCP 07:00
PROVIDERS: ATTEND Internal Medicine
DX: N18.4 Chronic kidney disease, stage 4 (severe) (principal)
CPT/HCPCS: 36415; 80069

== ENCOUNTER 2021-09-09 11:35 | Outpatient (CLI) | payer MEDICARE, OTHER ==
[2021-09-09 18:12] LABS: ALBUMIN 3.9 g/dL (3.2-5.5); CALCIUM 9.8 mg/dL (8.5-10.3); CREATININE 2.9 mg/dL (0.6-1.2); PHOSPHORUS 3.8 mg/dL (2.5-4.6); POTASSIUM 3.2 mmol/L (3.5-5.0)
== END 2021-09-09 11:36 | disposition home or self-care (01) ==
LOC: LAB.N 11:35
PROVIDERS: ATTEND Family Medicine
DX: N18.4 Chronic kidney disease, stage 4 (severe) (principal)
CPT/HCPCS: 36415; 80069

== ENCOUNTER 2021-09-25 10:35 | Outpatient (CLI) | payer MEDICARE, OTHER ==
[2021-09-25 12:53] LABS: ALBUMIN 3.6 g/dL (3.2-5.5); CALCIUM 9.8 mg/dL (8.5-10.3); CREATININE 2.6 mg/dL (0.6-1.2); PHOSPHORUS 3.7 mg/dL (2.5-4.6); POTASSIUM 3.6 mmol/L (3.5-5.0)
== END 2021-09-25 10:36 | disposition home or self-care (01) ==
LOC: LAB.N 10:35
PROVIDERS: ATTEND Internal Medicine
DX: N18.4 Chronic kidney disease, stage 4 (severe) (principal)
CPT/HCPCS: 36415; 80069

== ENCOUNTER 2021-10-14 10:02 | Outpatient (CLI) | payer MEDICARE, OTHER ==
[2021-10-14 13:30] LABS: BASOPHILS % (AUTO) 0.3 %; EOSINOPHILS # (AUTO) 0.1 10^3/uL (0.0-0.7); EOSINOPHILS % (AUTO) 1.4 %; HCT - HEMATOCRIT 37.4 % (42.0-52.0); HGB - HEMOGLOBIN 11.9 g/dL (14.0-18.0); LYMPHOCYTES # (AUTO) 0.9 10^3/uL (1.5-3.5); MEAN CORPUSCULAR HEMOGLOBIN 30.6 pg (27.0-31.0); MEAN CORPUSCULAR HGB CONC 31.8 g/dL (32.0-36.0); MEAN CORPUSCULAR VOLUME 96.1 fL (80.0-94.0); MEAN PLATELET VOLUME 9.6 fL (7.4-11.4); MONOCYTES # (AUTO) 0.8 10^3/uL (0.0-1.0); MONOCYTES % (AUTO) 11.6 %; NEUTROPHILS # (AUTO) 4.8 10^3/uL (1.5-6.6); NEUTROPHILS % (AUTO) 73.2 %; PLT - PLATELET COUNT 273 10^3/uL (130-450); RED BLOOD COUNT 3.89 10^6/uL (4.70-6.10); RED CELL DISTRIBUTION WIDTH 13.7 % (12.0-15.0); WHITE BLOOD COUNT 6.6 x10^3/uL (4.8-10.8)
[2021-10-14 14:08] LABS: ALBUMIN 3.9 g/dL (3.2-5.5); CREATININE 2.9 mg/dL (0.6-1.2); MAGNESIUM 2.5 mg/dL (1.7-2.8); PHOSPHORUS 3.6 mg/dL (2.5-4.6)
[2021-10-14 14:40] LABS: POTASSIUM 3.9 mmol/L (3.5-5.0)
== END 2021-10-14 10:03 | disposition home or self-care (01) ==
LOC: LAB.N 10:02
PROVIDERS: ATTEND Family Medicine
DX: I12.9 Hypertensive chronic kidney disease with stage 1 through stage 4 chronic kidney disease, or unspecified chronic kidney disease (principal); N18.4 Chronic kidney disease, stage 4 (severe); E83.9 Disorder of mineral metabolism, unspecified; M89.9 Disorder of bone, unspecified; E83.42 Hypomagnesemia
CPT/HCPCS: 36415; 80069; 83735; 83970; 85025

== ENCOUNTER 2021-10-28 10:21 | Outpatient (CLI) | payer MEDICARE, OTHER ==
[2021-10-28 12:31] LABS: BASOPHILS % (AUTO) 0.7 %; EOSINOPHILS # (AUTO) 0.1 10^3/uL (0.0-0.7); EOSINOPHILS % (AUTO) 1.9 %; HCT - HEMATOCRIT 35.7 % (42.0-52.0); HGB - HEMOGLOBIN 11.5 g/dL (14.0-18.0); LYMPHOCYTES # (AUTO) 0.9 10^3/uL (1.5-3.5); MEAN CORPUSCULAR HEMOGLOBIN 30.7 pg (27.0-31.0); MEAN CORPUSCULAR HGB CONC 32.2 g/dL (32.0-36.0); MEAN CORPUSCULAR VOLUME 95.5 fL (80.0-94.0); MEAN PLATELET VOLUME 9.6 fL (7.4-11.4); MONOCYTES # (AUTO) 0.6 10^3/uL (0.0-1.0); MONOCYTES % (AUTO) 10.3 %; NEUTROPHILS # (AUTO) 3.7 10^3/uL (1.5-6.6); NEUTROPHILS % (AUTO) 69.5 %; PLT - PLATELET COUNT 312 10^3/uL (130-450); RED BLOOD COUNT 3.74 10^6/uL (4.70-6.10); RED CELL DISTRIBUTION WIDTH 13.4 % (12.0-15.0); WHITE BLOOD COUNT 5.4 x10^3/uL (4.8-10.8)
[2021-10-28 13:02] LABS: ALBUMIN 3.8 g/dL (3.2-5.5); CALCIUM 9.9 mg/dL (8.5-10.3); CREATININE 2.9 mg/dL (0.6-1.2); MAGNESIUM 2.2 mg/dL (1.7-2.8); PHOSPHORUS 3.4 mg/dL (2.5-4.6); POTASSIUM 3.5 mmol/L (3.5-5.0)
== END 2021-10-28 10:22 | disposition home or self-care (01) ==
LOC: LAB.N 10:21
PROVIDERS: ATTEND Internal Medicine Nephrology
DX: I12.9 Hypertensive chronic kidney disease with stage 1 through stage 4 chronic kidney disease, or unspecified chronic kidney disease (principal); N18.4 Chronic kidney disease, stage 4 (severe); E83.9 Disorder of mineral metabolism, unspecified; M89.9 Disorder of bone, unspecified; E83.42 Hypomagnesemia
CPT/HCPCS: 36415; 80069; 83735; 83970; 85025

== ENCOUNTER 2021-11-04 13:42 | Outpatient (CLI) | payer MEDICARE, OTHER ==
[2021-11-04 18:16] LABS: BASOPHILS % (AUTO) 0.4 %; EOSINOPHILS # (AUTO) 0.1 10^3/uL (0.0-0.7); EOSINOPHILS % (AUTO) 0.9 %; HCT - HEMATOCRIT 35.8 % (42.0-52.0); HGB - HEMOGLOBIN 11.7 g/dL (14.0-18.0); LYMPHOCYTES # (AUTO) 0.7 10^3/uL (1.5-3.5); LYMPHOCYTES % (AUTO) 7.7 %; MEAN CORPUSCULAR HEMOGLOBIN 30.7 pg (27.0-31.0); MEAN CORPUSCULAR HGB CONC 32.7 g/dL (32.0-36.0); MEAN PLATELET VOLUME 9.7 fL (7.4-11.4); MONOCYTES # (AUTO) 0.9 10^3/uL (0.0-1.0); MONOCYTES % (AUTO) 10.4 %; NEUTROPHILS # (AUTO) 7.3 10^3/uL (1.5-6.6); PLT - PLATELET COUNT 339 10^3/uL (130-450); RED BLOOD COUNT 3.81 10^6/uL (4.70-6.10); RED CELL DISTRIBUTION WIDTH 13.2 % (12.0-15.0); WHITE BLOOD COUNT 9.1 x10^3/uL (4.8-10.8)
[2021-11-04 19:02] LABS: ALBUMIN 4.1 g/dL (3.2-5.5); CALCIUM 10.1 mg/dL (8.5-10.3); CREATININE 3.6 mg/dL (0.6-1.2); MAGNESIUM 2.7 mg/dL (1.7-2.8); PHOSPHORUS 4.5 mg/dL (2.5-4.6); POTASSIUM 3.4 mmol/L (3.5-5.0)
== END 2021-11-04 13:43 | disposition home or self-care (01) ==
LOC: LAB.N 13:42
PROVIDERS: ATTEND Internal Medicine Nephrology
DX: I12.9 Hypertensive chronic kidney disease with stage 1 through stage 4 chronic kidney disease, or unspecified chronic kidney disease (principal); N18.4 Chronic kidney disease, stage 4 (severe); E83.9 Disorder of mineral metabolism, unspecified; M89.9 Disorder of bone, unspecified; E83.42 Hypomagnesemia
CPT/HCPCS: 36415; 80069; 83735; 83970; 85025

== ENCOUNTER 2021-11-11 11:17 | Outpatient (CLI) | payer MEDICARE, OTHER ==
[2021-11-11 18:27] LABS: BASOPHILS % (AUTO) 0.5 %; EOSINOPHILS # (AUTO) 0.1 10^3/uL (0.0-0.7); EOSINOPHILS % (AUTO) 1.1 %; HGB - HEMOGLOBIN 12.7 g/dL (14.0-18.0); LYMPHOCYTES # (AUTO) 0.8 10^3/uL (1.5-3.5); LYMPHOCYTES % (AUTO) 9.4 %; MEAN CORPUSCULAR HEMOGLOBIN 30.2 pg (27.0-31.0); MEAN CORPUSCULAR HGB CONC 31.8 g/dL (32.0-36.0); MEAN CORPUSCULAR VOLUME 95.2 fL (80.0-94.0); MEAN PLATELET VOLUME 9.8 fL (7.4-11.4); MONOCYTES # (AUTO) 0.8 10^3/uL (0.0-1.0); NEUTROPHILS # (AUTO) 6.4 10^3/uL (1.5-6.6); NEUTROPHILS % (AUTO) 78.5 %; PLT - PLATELET COUNT 359 10^3/uL (130-450); WHITE BLOOD COUNT 8.1 x10^3/uL (4.8-10.8)
[2021-11-11 18:59] LABS: CALCIUM 10.5 mg/dL (8.5-10.3); CREATININE 3.1 mg/dL (0.6-1.2); MAGNESIUM 2.5 mg/dL (1.7-2.8); PHOSPHORUS 3.8 mg/dL (2.5-4.6); POTASSIUM 3.7 mmol/L (3.5-5.0)
== END 2021-11-11 11:18 | disposition home or self-care (01) ==
LOC: LAB.N 11:17
PROVIDERS: ATTEND Internal Medicine Nephrology
DX: I12.9 Hypertensive chronic kidney disease with stage 1 through stage 4 chronic kidney disease, or unspecified chronic kidney disease (principal); N18.4 Chronic kidney disease, stage 4 (severe); E83.9 Disorder of mineral metabolism, unspecified; M89.9 Disorder of bone, unspecified; E83.42 Hypomagnesemia
CPT/HCPCS: 36415; 80069; 83735; 83970; 85025

== ENCOUNTER 2021-11-18 14:15 | Outpatient (CLI) | payer MEDICARE, OTHER ==
[2021-11-18 18:20] LABS: BASOPHILS % (AUTO) 0.4 %; EOSINOPHILS # (AUTO) 0.1 10^3/uL (0.0-0.7); EOSINOPHILS % (AUTO) 1.2 %; HCT - HEMATOCRIT 38.9 % (42.0-52.0); HGB - HEMOGLOBIN 12.6 g/dL (14.0-18.0); LYMPHOCYTES # (AUTO) 0.7 10^3/uL (1.5-3.5); LYMPHOCYTES % (AUTO) 9.6 %; MEAN CORPUSCULAR HEMOGLOBIN 30.9 pg (27.0-31.0); MEAN CORPUSCULAR HGB CONC 32.4 g/dL (32.0-36.0); MEAN CORPUSCULAR VOLUME 95.3 fL (80.0-94.0); MEAN PLATELET VOLUME 9.8 fL (7.4-11.4); MONOCYTES # (AUTO) 0.7 10^3/uL (0.0-1.0); MONOCYTES % (AUTO) 9.4 %; NEUTROPHILS % (AUTO) 79.1 %; PLT - PLATELET COUNT 306 10^3/uL (130-450); RED BLOOD COUNT 4.08 10^6/uL (4.70-6.10); RED CELL DISTRIBUTION WIDTH 12.7 % (12.0-15.0); WHITE BLOOD COUNT 7.6 x10^3/uL (4.8-10.8)
[2021-11-18 18:23] LABS: CALCIUM 9.9 mg/dL (8.5-10.3); CREATININE 2.7 mg/dL (0.6-1.2); MAGNESIUM 2.4 mg/dL (1.7-2.8); PHOSPHORUS 3.6 mg/dL (2.5-4.6); POTASSIUM 3.7 mmol/L (3.5-5.0)
== END 2021-11-18 14:16 | disposition home or self-care (01) ==
LOC: LAB.N 14:15
PROVIDERS: ATTEND Internal Medicine Nephrology
DX: I12.9 Hypertensive chronic kidney disease with stage 1 through stage 4 chronic kidney disease, or unspecified chronic kidney disease (principal); N18.4 Chronic kidney disease, stage 4 (severe); E83.9 Disorder of mineral metabolism, unspecified; M89.9 Disorder of bone, unspecified; E83.42 Hypomagnesemia
CPT/HCPCS: 36415; 80069; 83735; 83970; 85025

== ENCOUNTER 2021-11-27 10:32 | Outpatient (CLI) | payer MEDICARE, OTHER ==
[2021-11-27 12:20] LABS: CALCIUM 9.9 mg/dL (8.5-10.3); CREATININE 3.1 mg/dL (0.6-1.2); PHOSPHORUS 3.5 mg/dL (2.5-4.6)
== END 2021-11-27 10:33 | disposition home or self-care (01) ==
LOC: LAB.N 10:32
PROVIDERS: ATTEND Internal Medicine Nephrology
DX: I12.9 Hypertensive chronic kidney disease with stage 1 through stage 4 chronic kidney disease, or unspecified chronic kidney disease (principal); N18.4 Chronic kidney disease, stage 4 (severe); M89.9 Disorder of bone, unspecified; E83.42 Hypomagnesemia
CPT/HCPCS: 36415; 80069

== ENCOUNTER 2021-12-03 10:13 | Outpatient (CLI) | payer MEDICARE, OTHER ==
[2021-12-03 11:42] LABS: BASOPHILS # (AUTO) 0.1 10^3/uL (0.0-0.1); BASOPHILS % (AUTO) 0.8 %; EOSINOPHILS # (AUTO) 0.1 10^3/uL (0.0-0.7); EOSINOPHILS % (AUTO) 1.3 %; HCT - HEMATOCRIT 37.4 % (42.0-52.0); HGB - HEMOGLOBIN 12.1 g/dL (14.0-18.0); LYMPHOCYTES # (AUTO) 0.9 10^3/uL (1.5-3.5); LYMPHOCYTES % (AUTO) 13.6 %; MEAN CORPUSCULAR HEMOGLOBIN 31.3 pg (27.0-31.0); MEAN CORPUSCULAR HGB CONC 32.4 g/dL (32.0-36.0); MEAN CORPUSCULAR VOLUME 96.6 fL (80.0-94.0); MEAN PLATELET VOLUME 9.4 fL (7.4-11.4); MONOCYTES # (AUTO) 0.7 10^3/uL (0.0-1.0); MONOCYTES % (AUTO) 10.7 %; NEUTROPHILS # (AUTO) 4.6 10^3/uL (1.5-6.6); PLT - PLATELET COUNT 306 10^3/uL (130-450); RED BLOOD COUNT 3.87 10^6/uL (4.70-6.10); RED CELL DISTRIBUTION WIDTH 13.3 % (12.0-15.0); WHITE BLOOD COUNT 6.3 x10^3/uL (4.8-10.8)
[2021-12-03 11:56] LABS: ALBUMIN 3.9 g/dL (3.2-5.5); CALCIUM 9.7 mg/dL (8.5-10.3); CREATININE 3.1 mg/dL (0.6-1.2); MAGNESIUM 2.4 mg/dL (1.7-2.8); PHOSPHORUS 3.8 mg/dL (2.5-4.6); POTASSIUM 3.6 mmol/L (3.5-5.0)
== END 2021-12-03 10:14 | disposition home or self-care (01) ==
LOC: LAB.N 10:13
PROVIDERS: ATTEND Internal Medicine Nephrology
DX: I12.9 Hypertensive chronic kidney disease with stage 1 through stage 4 chronic kidney disease, or unspecified chronic kidney disease (principal); N18.4 Chronic kidney disease, stage 4 (severe); M89.9 Disorder of bone, unspecified; E83.42 Hypomagnesemia
CPT/HCPCS: 36415; 80069; 83735; 83970; 85025

== ENCOUNTER 2021-12-17 11:37 | Outpatient (CLI) | payer MEDICARE, OTHER ==
[2021-12-17 17:59] LABS: CALCIUM 10.3 mg/dL (8.5-10.3); CREATININE 3.1 mg/dL (0.6-1.2); MAGNESIUM 2.6 mg/dL (1.7-2.8); PHOSPHORUS 4.6 mg/dL (2.5-4.6); POTASSIUM 3.6 mmol/L (3.5-5.0)
[2021-12-17 18:15] LABS: BASOPHILS % (AUTO) 0.3 %; EOSINOPHILS # (AUTO) 0.1 10^3/uL (0.0-0.7); EOSINOPHILS % (AUTO) 0.9 %; HCT - HEMATOCRIT 37.8 % (42.0-52.0); HGB - HEMOGLOBIN 11.9 g/dL (14.0-18.0); LYMPHOCYTES # (AUTO) 0.8 10^3/uL (1.5-3.5); LYMPHOCYTES % (AUTO) 8.5 %; MEAN CORPUSCULAR HEMOGLOBIN 30.4 pg (27.0-31.0); MEAN CORPUSCULAR HGB CONC 31.5 g/dL (32.0-36.0); MEAN CORPUSCULAR VOLUME 96.7 fL (80.0-94.0); MEAN PLATELET VOLUME 9.5 fL (7.4-11.4); MONOCYTES % (AUTO) 10.7 %; NEUTROPHILS # (AUTO) 7.1 10^3/uL (1.5-6.6); NEUTROPHILS % (AUTO) 78.9 %; PLT - PLATELET COUNT 315 10^3/uL (130-450); RED BLOOD COUNT 3.91 10^6/uL (4.70-6.10); RED CELL DISTRIBUTION WIDTH 13.4 % (12.0-15.0)
== END 2021-12-17 11:38 | disposition home or self-care (01) ==
LOC: LAB.N 11:37
PROVIDERS: ATTEND Internal Medicine Nephrology
DX: I12.9 Hypertensive chronic kidney disease with stage 1 through stage 4 chronic kidney disease, or unspecified chronic kidney disease (principal); N18.4 Chronic kidney disease, stage 4 (severe); E83.9 Disorder of mineral metabolism, unspecified; M89.9 Disorder of bone, unspecified; E83.42 Hypomagnesemia
CPT/HCPCS: 36415; 80069; 83735; 83970; 85025

== ENCOUNTER 2021-12-26 10:36 | Outpatient (CLI) | payer MEDICARE, OTHER ==
[2021-12-26 12:10] LABS: BASOPHILS % (AUTO) 0.4 %; EOSINOPHILS # (AUTO) 0.1 10^3/uL (0.0-0.7); EOSINOPHILS % (AUTO) 1.2 %; HCT - HEMATOCRIT 36.5 % (42.0-52.0); HGB - HEMOGLOBIN 11.5 g/dL (14.0-18.0); LYMPHOCYTES # (AUTO) 0.8 10^3/uL (1.5-3.5); LYMPHOCYTES % (AUTO) 12.3 %; MEAN CORPUSCULAR HEMOGLOBIN 30.5 pg (27.0-31.0); MEAN CORPUSCULAR HGB CONC 31.5 g/dL (32.0-36.0); MEAN CORPUSCULAR VOLUME 96.8 fL (80.0-94.0); MEAN PLATELET VOLUME 9.5 fL (7.4-11.4); MONOCYTES # (AUTO) 0.7 10^3/uL (0.0-1.0); NEUTROPHILS # (AUTO) 5.1 10^3/uL (1.5-6.6); NEUTROPHILS % (AUTO) 75.1 %; PLT - PLATELET COUNT 300 10^3/uL (130-450); RED BLOOD COUNT 3.77 10^6/uL (4.70-6.10); RED CELL DISTRIBUTION WIDTH 13.7 % (12.0-15.0); WHITE BLOOD COUNT 6.8 x10^3/uL (4.8-10.8)
[2021-12-26 12:35] LABS: ALBUMIN 3.8 g/dL (3.2-5.5); CALCIUM 9.9 mg/dL (8.5-10.3); CREATININE 2.9 mg/dL (0.6-1.2); MAGNESIUM 2.6 mg/dL (1.7-2.8); PHOSPHORUS 3.9 mg/dL (2.5-4.6); POTASSIUM 4.2 mmol/L (3.5-5.0)
== END 2021-12-26 10:37 | disposition home or self-care (01) ==
LOC: LAB.N 10:36
PROVIDERS: ATTEND Internal Medicine Nephrology
DX: I12.9 Hypertensive chronic kidney disease with stage 1 through stage 4 chronic kidney disease, or unspecified chronic kidney disease (principal); N18.4 Chronic kidney disease, stage 4 (severe); E83.9 Disorder of mineral metabolism, unspecified; M89.9 Disorder of bone, unspecified; E83.42 Hypomagnesemia
CPT/HCPCS: 36415; 80069; 83735; 83970; 85025

== ENCOUNTER 2021-12-31 11:44 | Outpatient (CLI) | payer MEDICARE, OTHER ==
[2021-12-31 17:44] LABS: BASOPHILS % (AUTO) 0.5 %; EOSINOPHILS # (AUTO) 0.1 10^3/uL (0.0-0.7); EOSINOPHILS % (AUTO) 1.3 %; HCT - HEMATOCRIT 38.4 % (42.0-52.0); HGB - HEMOGLOBIN 12.1 g/dL (14.0-18.0); LYMPHOCYTES # (AUTO) 0.9 10^3/uL (1.5-3.5); LYMPHOCYTES % (AUTO) 14.7 %; MEAN CORPUSCULAR HEMOGLOBIN 30.6 pg (27.0-31.0); MEAN CORPUSCULAR HGB CONC 31.5 g/dL (32.0-36.0); MEAN PLATELET VOLUME 9.7 fL (7.4-11.4); MONOCYTES # (AUTO) 0.8 10^3/uL (0.0-1.0); MONOCYTES % (AUTO) 13.6 %; NEUTROPHILS # (AUTO) 4.2 10^3/uL (1.5-6.6); NEUTROPHILS % (AUTO) 69.2 %; PLT - PLATELET COUNT 304 10^3/uL (130-450); RED BLOOD COUNT 3.96 10^6/uL (4.70-6.10); RED CELL DISTRIBUTION WIDTH 13.7 % (12.0-15.0); WHITE BLOOD COUNT 6.1 x10^3/uL (4.8-10.8)
[2021-12-31 18:04] LABS: ALBUMIN 3.9 g/dL (3.2-5.5); CREATININE 3.3 mg/dL (0.6-1.2); MAGNESIUM 2.7 mg/dL (1.7-2.8); PHOSPHORUS 4.7 mg/dL (2.5-4.6); POTASSIUM 3.8 mmol/L (3.5-5.0)
== END 2021-12-31 11:45 | disposition home or self-care (01) ==
LOC: LAB.N 11:44
PROVIDERS: ATTEND Internal Medicine Nephrology
DX: I12.9 Hypertensive chronic kidney disease with stage 1 through stage 4 chronic kidney disease, or unspecified chronic kidney disease (principal); N18.4 Chronic kidney disease, stage 4 (severe); E83.9 Disorder of mineral metabolism, unspecified; M89.9 Disorder of bone, unspecified; E83.42 Hypomagnesemia
CPT/HCPCS: 36415; 80069; 83735; 83970; 85025

== ENCOUNTER 2022-02-13 11:45 | Outpatient (CLI) | payer MEDICARE, OTHER ==
[2022-02-13 17:45] LABS: BASOPHILS % (AUTO) 0.3 %; EOSINOPHILS # (AUTO) 0.1 10^3/uL (0.0-0.7); EOSINOPHILS % (AUTO) 0.9 %; HCT - HEMATOCRIT 34.8 % (42.0-52.0); HGB - HEMOGLOBIN 11.1 g/dL (14.0-18.0); LYMPHOCYTES % (AUTO) 10.7 %; MEAN CORPUSCULAR HEMOGLOBIN 30.2 pg (27.0-31.0); MEAN CORPUSCULAR HGB CONC 31.9 g/dL (32.0-36.0); MEAN CORPUSCULAR VOLUME 94.6 fL (80.0-94.0); MEAN PLATELET VOLUME 9.5 fL (7.4-11.4); MONOCYTES # (AUTO) 0.7 10^3/uL (0.0-1.0); MONOCYTES % (AUTO) 7.2 %; NEUTROPHILS # (AUTO) 7.3 10^3/uL (1.5-6.6); NEUTROPHILS % (AUTO) 79.5 %; PLT - PLATELET COUNT 439 10^3/uL (130-450); RED BLOOD COUNT 3.68 10^6/uL (4.70-6.10); WHITE BLOOD COUNT 9.2 x10^3/uL (4.8-10.8)
[2022-02-13 18:17] LABS: ALBUMIN 3.3 g/dL (3.2-5.5); CALCIUM 10.2 mg/dL (8.5-10.3); CREATININE 2.9 mg/dL (0.6-1.2); MAGNESIUM 2.2 mg/dL (1.7-2.8); POTASSIUM 3.5 mmol/L (3.5-5.0)
== END 2022-02-13 11:46 | disposition home or self-care (01) ==
LOC: LAB.N 11:45
PROVIDERS: ATTEND Internal Medicine Nephrology
DX: I12.9 Hypertensive chronic kidney disease with stage 1 through stage 4 chronic kidney disease, or unspecified chronic kidney disease (principal); N18.4 Chronic kidney disease, stage 4 (severe); E83.9 Disorder of mineral metabolism, unspecified; M89.9 Disorder of bone, unspecified; E83.42 Hypomagnesemia
CPT/HCPCS: 36415; 80069; 83735; 83970; 85025

== ENCOUNTER 2022-04-10 10:34 | Outpatient (CLI) | payer MEDICARE, OTHER ==
[2022-04-10 12:50] LABS: BASOPHILS # (AUTO) 0.1 10^3/uL (0.0-0.1); BASOPHILS % (AUTO) 0.5 %; EOSINOPHILS # (AUTO) 0.1 10^3/uL (0.0-0.7); EOSINOPHILS % (AUTO) 1.2 %; HCT - HEMATOCRIT 34.1 % (42.0-52.0); HGB - HEMOGLOBIN 11.1 g/dL (14.0-18.0); LYMPHOCYTES # (AUTO) 0.6 10^3/uL (1.5-3.5); LYMPHOCYTES % (AUTO) 5.6 %; MEAN CORPUSCULAR HEMOGLOBIN 30.4 pg (27.0-31.0); MEAN CORPUSCULAR HGB CONC 32.6 g/dL (32.0-36.0); MEAN CORPUSCULAR VOLUME 93.4 fL (80.0-94.0); MEAN PLATELET VOLUME 9.7 fL (7.4-11.4); MONOCYTES # (AUTO) 0.8 10^3/uL (0.0-1.0); MONOCYTES % (AUTO) 8.5 %; NEUTROPHILS # (AUTO) 8.2 10^3/uL (1.5-6.6); NEUTROPHILS % (AUTO) 82.9 %; PLT - PLATELET COUNT 374 10^3/uL (130-450); RED BLOOD COUNT 3.65 10^6/uL (4.70-6.10); RED CELL DISTRIBUTION WIDTH 15.1 % (12.0-15.0); WHITE BLOOD COUNT 9.9 x10^3/uL (4.8-10.8)
[2022-04-10 14:08] LABS: ALBUMIN 3.5 g/dL (3.2-5.5); CREATININE 3.1 mg/dL (0.6-1.2); MAGNESIUM 2.7 mg/dL (1.7-2.8); PHOSPHORUS 4.8 mg/dL (2.5-4.6); POTASSIUM 4.2 mmol/L (3.5-5.0)
== END 2022-04-10 10:35 | disposition home or self-care (01) ==
LOC: LAB.N 10:34
PROVIDERS: ATTEND Internal Medicine Nephrology
DX: I12.9 Hypertensive chronic kidney disease with stage 1 through stage 4 chronic kidney disease, or unspecified chronic kidney disease (principal); N18.4 Chronic kidney disease, stage 4 (severe); E83.9 Disorder of mineral metabolism, unspecified; M89.9 Disorder of bone, unspecified; E83.42 Hypomagnesemia
CPT/HCPCS: 36415; 80069; 83735; 83970; 85025

== ENCOUNTER 2022-05-08 11:07 | Outpatient (CLI) | payer MEDICARE, OTHER ==
[2022-05-08 17:38] LABS: BASOPHILS % (AUTO) 0.7 %; EOSINOPHILS % (AUTO) 0.5 %; HCT - HEMATOCRIT 36.5 % (42.0-52.0); HGB - HEMOGLOBIN 11.3 g/dL (14.0-18.0); LYMPHOCYTES # (AUTO) 0.7 10^3/uL (1.5-3.5); LYMPHOCYTES % (AUTO) 12.9 %; MEAN CORPUSCULAR HEMOGLOBIN 29.8 pg (27.0-31.0); MEAN CORPUSCULAR VOLUME 96.3 fL (80.0-94.0); MEAN PLATELET VOLUME 9.4 fL (7.4-11.4); MONOCYTES # (AUTO) 0.5 10^3/uL (0.0-1.0); MONOCYTES % (AUTO) 9.3 %; NEUTROPHILS # (AUTO) 4.2 10^3/uL (1.5-6.6); NEUTROPHILS % (AUTO) 75.3 %; PLT - PLATELET COUNT 359 10^3/uL (130-450); RED BLOOD COUNT 3.79 10^6/uL (4.70-6.10); RED CELL DISTRIBUTION WIDTH 16.3 % (12.0-15.0); WHITE BLOOD COUNT 5.6 x10^3/uL (4.8-10.8)
[2022-05-08 17:56] LABS: ALBUMIN 3.4 g/dL (3.2-5.5); CALCIUM 9.8 mg/dL (8.5-10.3); CREATININE 2.8 mg/dL (0.6-1.2); MAGNESIUM 2.3 mg/dL (1.7-2.8); POTASSIUM 3.8 mmol/L (3.5-5.0)
== END 2022-05-08 11:08 | disposition home or self-care (01) ==
LOC: LAB.N 11:07
PROVIDERS: ATTEND Internal Medicine Nephrology
DX: I12.9 Hypertensive chronic kidney disease with stage 1 through stage 4 chronic kidney disease, or unspecified chronic kidney disease (principal); N18.4 Chronic kidney disease, stage 4 (severe); E83.9 Disorder of mineral metabolism, unspecified; M89.9 Disorder of bone, unspecified; E83.42 Hypomagnesemia
CPT/HCPCS: 36415; 80069; 83735; 83970; 85025

== ENCOUNTER 2022-05-29 09:42 | Outpatient (CLI) | payer MEDICARE, OTHER | END 2022-05-29 09:43 | disposition home or self-care (01) | LOC: NS 09:42 | PROVIDERS: ATTEND Family Medicine | DX: Z71.3 Dietary counseling and surveillance (principal); N18.4 Chronic kidney disease, stage 4 (severe); Z68.27 Body mass index [BMI] 27.0-27.9, adult | CPT/HCPCS: 97802 ==

== ENCOUNTER 2022-06-02 11:38 | Outpatient (CLI) | payer MEDICARE, OTHER ==
[2022-06-02 18:00] LABS: BASOPHILS % (AUTO) 0.4 %; EOSINOPHILS % (AUTO) 0.2 %; HCT - HEMATOCRIT 37.3 % (42.0-52.0); HGB - HEMOGLOBIN 11.4 g/dL (14.0-18.0); LYMPHOCYTES # (AUTO) 0.4 10^3/uL (1.5-3.5); MEAN CORPUSCULAR HEMOGLOBIN 29.6 pg (27.0-31.0); MEAN CORPUSCULAR HGB CONC 30.6 g/dL (32.0-36.0); MEAN CORPUSCULAR VOLUME 96.9 fL (80.0-94.0); MEAN PLATELET VOLUME 9.6 fL (7.4-11.4); MONOCYTES # (AUTO) 0.7 10^3/uL (0.0-1.0); NEUTROPHILS # (AUTO) 7.1 10^3/uL (1.5-6.6); NEUTROPHILS % (AUTO) 85.3 %; PLT - PLATELET COUNT 414 10^3/uL (130-450); RED BLOOD COUNT 3.85 10^6/uL (4.70-6.10); RED CELL DISTRIBUTION WIDTH 15.5 % (12.0-15.0); WHITE BLOOD COUNT 8.3 x10^3/uL (4.8-10.8)
[2022-06-02 18:13] LABS: ALBUMIN 3.8 g/dL (3.2-5.5); CALCIUM 9.8 mg/dL (8.5-10.3); CREATININE 2.8 mg/dL (0.6-1.2); MAGNESIUM 2.7 mg/dL (1.7-2.8); PHOSPHORUS 4.2 mg/dL (2.5-4.6); POTASSIUM 4.2 mmol/L (3.5-5.0)
== END 2022-06-02 11:39 | disposition home or self-care (01) ==
LOC: LAB.N 11:38
PROVIDERS: ATTEND Internal Medicine Nephrology
DX: I12.9 Hypertensive chronic kidney disease with stage 1 through stage 4 chronic kidney disease, or unspecified chronic kidney disease (principal); N18.4 Chronic kidney disease, stage 4 (severe); E83.9 Disorder of mineral metabolism, unspecified; M89.9 Disorder of bone, unspecified; E83.42 Hypomagnesemia
CPT/HCPCS: 36415; 80069; 83735; 83970; 85025

== ENCOUNTER 2022-07-01 11:24 | Outpatient (CLI) | payer MEDICARE, OTHER ==
[2022-07-01 18:37] LABS: BASOPHILS % (AUTO) 0.5 %; EOSINOPHILS # (AUTO) 0.1 10^3/uL (0.0-0.7); EOSINOPHILS % (AUTO) 0.6 %; HCT - HEMATOCRIT 35.8 % (42.0-52.0); LYMPHOCYTES # (AUTO) 0.6 10^3/uL (1.5-3.5); LYMPHOCYTES % (AUTO) 6.4 %; MEAN CORPUSCULAR HEMOGLOBIN 30.3 pg (27.0-31.0); MEAN CORPUSCULAR HGB CONC 30.7 g/dL (32.0-36.0); MEAN CORPUSCULAR VOLUME 98.6 fL (80.0-94.0); MEAN PLATELET VOLUME 9.4 fL (7.4-11.4); MONOCYTES # (AUTO) 0.8 10^3/uL (0.0-1.0); MONOCYTES % (AUTO) 9.5 %; NEUTROPHILS # (AUTO) 7.1 10^3/uL (1.5-6.6); NEUTROPHILS % (AUTO) 80.6 %; NRBC ABSOLUTE COUNT (AUTO) 0.02 x10^3/uL; NUCLEATED RED BLOOD CELLS AUTO 0.2 /100WBC; PLT - PLATELET COUNT 378 10^3/uL (130-450); RED BLOOD COUNT 3.63 10^6/uL (4.70-6.10); RED CELL DISTRIBUTION WIDTH 14.6 % (12.0-15.0); WHITE BLOOD COUNT 8.8 x10^3/uL (4.8-10.8)
[2022-07-01 19:06] LABS: ALBUMIN 3.3 g/dL (3.2-5.5); CALCIUM 9.9 mg/dL (8.5-10.3); MAGNESIUM 2.3 mg/dL (1.7-2.8); PHOSPHORUS 3.7 mg/dL (2.5-4.6); POTASSIUM 4.4 mmol/L (3.5-5.0)
== END 2022-07-01 11:25 | disposition home or self-care (01) ==
LOC: LAB.N 11:24
PROVIDERS: ATTEND Family Medicine
DX: I12.9 Hypertensive chronic kidney disease with stage 1 through stage 4 chronic kidney disease, or unspecified chronic kidney disease (principal); N18.4 Chronic kidney disease, stage 4 (severe); E83.9 Disorder of mineral metabolism, unspecified; M89.9 Disorder of bone, unspecified; E83.42 Hypomagnesemia
CPT/HCPCS: 36415; 80069; 83735; 83970; 85025

== ENCOUNTER 2022-08-08 10:59 | Outpatient (CLI) | payer MEDICARE, OTHER ==
[2022-08-08 18:03] LABS: BASOPHILS % (AUTO) 0.4 %; EOSINOPHILS # (AUTO) 0.1 10^3/uL (0.0-0.7); EOSINOPHILS % (AUTO) 0.9 %; HCT - HEMATOCRIT 33.1 % (42.0-52.0); HGB - HEMOGLOBIN 10.2 g/dL (14.0-18.0); LYMPHOCYTES # (AUTO) 0.6 10^3/uL (1.5-3.5); LYMPHOCYTES % (AUTO) 8.6 %; MEAN CORPUSCULAR HEMOGLOBIN 30.3 pg (27.0-31.0); MEAN CORPUSCULAR HGB CONC 30.8 g/dL (32.0-36.0); MEAN CORPUSCULAR VOLUME 98.2 fL (80.0-94.0); MEAN PLATELET VOLUME 9.3 fL (7.4-11.4); MONOCYTES # (AUTO) 0.8 10^3/uL (0.0-1.0); MONOCYTES % (AUTO) 10.9 %; NEUTROPHILS # (AUTO) 5.5 10^3/uL (1.5-6.6); NEUTROPHILS % (AUTO) 78.3 %; PLT - PLATELET COUNT 276 10^3/uL (130-450); RED BLOOD COUNT 3.37 10^6/uL (4.70-6.10); RED CELL DISTRIBUTION WIDTH 15.3 % (12.0-15.0)
[2022-08-08 18:06] LABS: ALBUMIN 3.3 g/dL (3.2-5.5); CALCIUM 10.1 mg/dL (8.5-10.3); CREATININE 3.1 mg/dL (0.6-1.2); MAGNESIUM 2.1 mg/dL (1.7-2.8); PHOSPHORUS 4.3 mg/dL (2.5-4.6); POTASSIUM 3.9 mmol/L (3.5-5.0)
== END 2022-08-08 11:00 | disposition home or self-care (01) ==
LOC: LAB.N 10:59
PROVIDERS: ATTEND Internal Medicine Nephrology
DX: I12.9 Hypertensive chronic kidney disease with stage 1 through stage 4 chronic kidney disease, or unspecified chronic kidney disease (principal); N18.4 Chronic kidney disease, stage 4 (severe); E83.9 Disorder of mineral metabolism, unspecified; M89.9 Disorder of bone, unspecified; E83.42 Hypomagnesemia
CPT/HCPCS: 36415; 80069; 83735; 83970; 85025

== ENCOUNTER 2022-09-02 10:08 | Emergency (ER) | payer MEDICARE, OTHER ==
[2022-09-02 10:23] VITALS: BP 138/87
--- NOTE | 2022-09-02 11:06 | ED Physician Documentation ---
PD HPI CHEST PAIN - Stated complaint Stated Complaint: L SIDE RIB PX - Chief complaint Chief Complaint: Resp - History obtained from History obtained from: Patient - History of Present Illness Location: Left chest Radiation: No: Jaw, Neck, Back, Abdominal, Left upper extremity, Right upper extremity, Other Worsened by: Movement, Palpation, Position. No: Exertion, Inspiration, Eating, Other Associated symptoms: Cough. No: Shortness of air, Diaphoresis, Nausea, Vomiting, Feeling faint / dizzy, General Weakness, Palpitations, Other - Additional information Additional information: This is an 82 yo M w/ pmh of ckd (gft 19, cr 3) and brief episode of afib while hospitalized as well as a left leg DVT post lumbar surgery this summer after which he was poorly mobile for a prolonged period of time, followed by hematology and on eliquis, who presents w/ several weeks of left low rib/chest pain. It is very focal, non radiating, and worse w/ cough or certain positions, and w/ palpation. He suspected it was muscle strain or a possible rib fracture after discussion w/ other providers, but it is still bothering him so he wanted another evaluation. He has not had a fever, no weakness, no other chest pain. He denies sob. He does have a cough, with sputum production, though not copious. Review of Systems Constitutional: reports: Reviewed and negative Nose: reports: Sinus pressure / pain Cardiac: reports: Reviewed and negative, Other (left rib pain). denies: Chest pain / pressure, Palpitations, Pedal edema, Calf pain Respiratory: reports: Cough, Reviewed and negative, Other. denies: Dyspnea, Hemoptysis, Wheezing GI: reports: Reviewed and negative Musculoskeletal: reports: Reviewed and negative Neurologic: reports: Reviewed and negative PD PAST MEDICAL HISTORY - Past Medical History Past Medical History: Yes Cardiovascular: Hypertension, High cholesterol, Atrial fibrillation, Other Respiratory: None Neuro: None Endocrine/Autoimmune: Other GI: Other : Benign prostate hypertrophy, Retention, Renal insuffiency, Nocturia, Frequency, Other HEENT: Chronic vision loss, Other Psych: Other Musculoskeletal: Osteoarthritis, Chronic back pain, Other Derm: Eczema, Other - Past Surgical History Past Surgical History: Yes General: Colonoscopy, Other Ortho: Spine surgery HEENT: Cataracts, Tonsil/Adenoidectomy Derm: Other - Present Medications Home Medications: Ambulatory Orders Medication Instructions Recorded Confirmed Alfuzosin HCl [Alfuzosin HCl ER] 10 mg PO DAILY 09/03/14 08/29/22 Dutasteride [Avodart] 0.5 mg PO DAILY 09/03/14 08/29/22 Pravastatin Sodium 20 mg PO DAILY 09/03/14 08/29/22 Cholecalciferol (Vitamin D3) 1 cap PO DAILY 10/01/15 08/29/22 [Vitamin D3] Glucosamine/D3/Boswellia Alaina 1 tab PO BID 10/01/15 08/29/22 [Glucosamine Daily Complex Tab] Multivitamin [Multivitamins] 1 tab PO DAILY 10/01/15 08/29/22 Ubidecarenone/Vitamin E Mixed 1 cap PO DAILY 10/01/15 08/29/22 [[id number]-[id number] E 100 mg-10 Unit Sfg] dexAMETHasone [Decadron] 0.75 mg PO BIDWM 07/13/20 08/29/22 oxyCODONE [Roxicodone] 5 mg PO TID PRN 07/13/20 08/29/22 Zolpidem [Ambien] 5 mg PO DAILY PRN 12/11/20 08/29/22 hydrOXYzine HCL [Hydroxyzine HCl] 25 mg PO TID PRN 12/11/20 08/29/22 B-Complex with Vitamin C [Super B 1 tab PO DAILY 12/12/20 08/29/22 Complex-Vitamin C] Metoprolol Succinate [Toprol Xl] 25 mg PO DAILY 03/18/22 08/29/22 Torsemide [Soaanz] 40 mg PO BIDDIURETIC 03/18/22 08/29/22 metOLazone [Metolazone] 2.5 mg PO DAILY 03/18/22 08/29/22 Nystatin/Triamcin 1 applic TOP TID PRN 03/19/22 08/29/22 [Nystatin-Triamcinolone Ointm] Fluconazole [Diflucan] 100 mg PO DAILY 4 Days #4 tablet 03/25/22 08/29/22 Fluconazole [Diflucan] 100 mg PO DAILY 6 Days #6 tablet 03/25/22 08/29/22 Penicillin Vk 500 mg PO Q6HR 7 Days #28 tablet 03/25/22 08/29/22 Apixaban [Eliquis] 1 tab PO BID 06/13/22 08/29/22 Doxycycline Hyclate 100 mg PO BID #14 tab 07/03/22 08/29/22 Oxycodone HCl/Acetaminophen 1 each PO Q6H PRN #14 tablet 07/03/22 08/29/22 [Percocet 5-325 mg Tablet] cephALEXin [Keflex] 500 mg PO Q6H #28 cap 07/03/22 08/29/22 Amox/Clav 500/125 [Augmentin 1 tablet PO Q12H 5 Days #10 tablet 09/02/22 500/125] Benzonatate [Tessalon] 200 mg PO TID PRN #30 cap 09/02/22 Doxycycline [Vibramycin] 100 mg PO BID 5 Days #10 tablet 09/02/22 Lidocaine Patch 5% [Lidoderm Patch] 1 patch TOP DAILY PRN #10 patch 09/02/22 - Allergies Allergies/Adverse Reactions: Allergies Allergy/AdvReac Type Severity Reaction Status Date / Time Sulfa (Sulfonamide Allergy Rash Verified 09/02/22 10:23 Antibiotics) - Social History Does the pt smoke?: No Smoking Status: Never smoker Does the pt drink ETOH?: Yes Does the pt have substance abuse?: No - Immunizations Immunizations are current?: Yes - POLST Patient has POLST: No POLST Status: DNR (He has something in a bottle that is put in the freezer in his house) PD ED PE NORMAL - Vitals Vital signs reviewed: Yes - General General: Alert and oriented X 3, No acute distress, Well developed/nourished - HEENT HEENT: Atraumatic, Pharynx benign - Neck Neck: Supple, no meningeal sign, No JVD - Cardiac Cardiac: RRR, No murmur, No gallop, No rub, Strong equal pulses - Respiratory Respiratory: No respiratory distress, Clear bilaterally, Other (ttp focal area left lower ribs at mid axillary line. ) - Abdomen Abdomen: Normal bowel sounds, Soft - Neuro Neuro: Alert and oriented X 3 Eye Opening: Spontaneous Motor: Obeys Commands Verbal: Oriented GCS Score: 15 Results - Vitals Vitals: Vital Signs - 24 hr 09/02/22 10:17 Temperature 36.6 C Heart Rate 73 Respiratory 16 Rate Blood Pressure 138/87 H O2 Saturation 98 Oxygen O2 Source Room air PD Medical Decision Making - ED course Complexity details: reviewed old records, reviewed results, re-evaluated patient, considered differential, d/w patient, d/w family ED course: This is an 82 yo M w/ pmh as listed above who presented w/ several weeks of left lower rib pain. Pain is localized, non radiating, non exertional. It is worse w/ coughing, positioning, or palpation. He has had a cough. Differentials considered including msk pain, possible rib fracture vs strain, pneumonia, pneumothorax, PE. Low suspicion for acs as pain is w/ cough, reproducible, and atypical. We obtained an xray which showed small area of possible consolidation in the left lower lung. I d/w pt that this could be a mild pna or atelectasis. I recommended given his prolonged sx that we treat for pna as well as add some cough medication and lidocaine patch to help w/ pain from ribs. Given multiple comorbidities, will treat w/ both doxy and renally dosed augmentin. If pain does not improve, consider outpt V/Q scan to r/o PE though I think unlikely as pt is on anticoagulation (though dosed at half due to prior bleeding), and has no hypoxia or tachycardia or overt dyspnea. Pt states understanding and has fup scheduled w/ PCP already for next week at which time re-eval can be done. Return precautions reviewed in detail w/ pt and his and pt discharged home in stable condition. Departure - Departure Disposition: 01 Home, Self Care Clinical Impression: Pneumonia Qualifiers: Pneumonia type: due to unspecified organism Laterality: left Lung location: lower lobe of lung Qualified Code(s): J18.9 - Pneumonia, unspecified organism Condition: Good Instructions: Pneumonia Dc Prescriptions: Amox/Clav 500/125 [Augmentin 500/125] 1 tablet PO Q12H 5 Days #10 tablet Lidocaine Patch 5% [Lidoderm Patch] 1 patch TOP DAILY PRN #10 patch PRN Reason: pain Benzonatate [Tessalon] 200 mg PO TID PRN #30 cap PRN Reason: Cough Doxycycline [Vibramycin] 100 mg PO BID 5 Days #10 tablet Comments: Your xray shows a small area that may be pneumonia in the left lower lung. Given your symptoms, I do think it is appropriate to treat you and I have prescribed two different antibiotics, both of which should be taken together for the next 5 days. I have also prescribed a cough medication. I suspect the majority of your pain is from muscle strain or a possible small hairline fracture not seen on xray. This type of pain can take weeks to improve. Please continue the pain medication you have used at home and I have ordered a lidocaine patch to apply to the area to help. IF you do not have improvement or develop worsening symptoms, please follow up in the ER or with your primary doctor.
--- NOTE | 2022-09-02 11:17 | XRAY Report ---
PROCEDURE: Chest 2 View X-Ray INDICATIONS: cough. left rib pain. TECHNIQUE: 2 views of the chest were acquired. COMPARISON: Chest x-ray 03/17/2022 FINDINGS: Surgical changes and devices: None. Lungs and pleura: Very minimal appearance of opacities noted along the left hemidiaphragm. Mediastinum: Mediastinal contours are normal. Heart size is normal. Bones and chest wall: No suspicious bony abnormalities. Soft tissues appear unremarkable. IMPRESSION: Minimal opacity noted in the left hemidiaphragm. This could represent dependent change versus atelect asis. In addition, developing airspace disease such as pneumonia cannot be definitively excluded. Reviewed by: Makayla Eid MD on 09/02/2022 11:15 AM PST Approved by: Makayla Eid MD on 09/02/2022 11:15 AM [facility] Station ID: [id number]
== END 2022-09-02 11:54 | disposition home or self-care (01) ==
LOC: ED 10:08
DX: J18.9 Pneumonia, unspecified organism (principal); Z86.718 Personal history of other venous thrombosis and embolism; Z79.01 Long term (current) use of anticoagulants; I48.91 Unspecified atrial fibrillation; I10 Essential (primary) hypertension
CPT/HCPCS: 99284

== ENCOUNTER 2022-09-08 11:20 | Outpatient (CLI) | payer MEDICARE, OTHER ==
[2022-09-08 17:52] LABS: BASOPHILS # (AUTO) 0.1 10^3/uL (0.0-0.1); BASOPHILS % (AUTO) 0.7 %; EOSINOPHILS # (AUTO) 0.1 10^3/uL (0.0-0.7); EOSINOPHILS % (AUTO) 1.2 %; HCT - HEMATOCRIT 34.3 % (42.0-52.0); HGB - HEMOGLOBIN 10.5 g/dL (14.0-18.0); LYMPHOCYTES # (AUTO) 0.6 10^3/uL (1.5-3.5); LYMPHOCYTES % (AUTO) 7.7 %; MEAN CORPUSCULAR HEMOGLOBIN 29.1 pg (27.0-31.0); MEAN CORPUSCULAR HGB CONC 30.6 g/dL (32.0-36.0); MEAN PLATELET VOLUME 9.1 fL (7.4-11.4); MONOCYTES # (AUTO) 0.9 10^3/uL (0.0-1.0); MONOCYTES % (AUTO) 10.8 %; NEUTROPHILS # (AUTO) 6.4 10^3/uL (1.5-6.6); NEUTROPHILS % (AUTO) 78.9 %; PLT - PLATELET COUNT 413 10^3/uL (130-450); RED BLOOD COUNT 3.61 10^6/uL (4.70-6.10); RED CELL DISTRIBUTION WIDTH 14.5 % (12.0-15.0); WHITE BLOOD COUNT 8.1 x10^3/uL (4.8-10.8)
[2022-09-09 18:23] LABS: ALBUMIN 3.4 g/dL (3.2-5.5); CALCIUM 11.8 mg/dL (8.5-10.3); CREATININE 3.8 mg/dL (0.6-1.2); MAGNESIUM 1.9 mg/dL (1.7-2.8); PHOSPHORUS 5.4 mg/dL (2.5-4.6); POTASSIUM 3.7 mmol/L (3.5-5.0)
== END 2022-09-08 11:21 | disposition home or self-care (01) ==
LOC: LAB.N 11:20
PROVIDERS: ATTEND Internal Medicine Nephrology
DX: I12.9 Hypertensive chronic kidney disease with stage 1 through stage 4 chronic kidney disease, or unspecified chronic kidney disease (principal); N18.4 Chronic kidney disease, stage 4 (severe); E83.9 Disorder of mineral metabolism, unspecified; M89.9 Disorder of bone, unspecified; E83.42 Hypomagnesemia
CPT/HCPCS: 36415; 80069; 83735; 83970; 85025

== ENCOUNTER 2022-09-15 11:07 | Outpatient (CLI) | payer MEDICARE, OTHER ==
[2022-09-15 17:39] LABS: BASOPHILS % (AUTO) 0.4 %; EOSINOPHILS # (AUTO) 0.1 10^3/uL (0.0-0.7); HCT - HEMATOCRIT 33.4 % (42.0-52.0); HGB - HEMOGLOBIN 10.3 g/dL (14.0-18.0); LYMPHOCYTES # (AUTO) 0.4 10^3/uL (1.5-3.5); LYMPHOCYTES % (AUTO) 4.1 %; MEAN CORPUSCULAR HEMOGLOBIN 29.3 pg (27.0-31.0); MEAN CORPUSCULAR HGB CONC 30.8 g/dL (32.0-36.0); MEAN CORPUSCULAR VOLUME 95.2 fL (80.0-94.0); MEAN PLATELET VOLUME 9.2 fL (7.4-11.4); MONOCYTES # (AUTO) 0.8 10^3/uL (0.0-1.0); MONOCYTES % (AUTO) 7.3 %; NEUTROPHILS # (AUTO) 8.8 10^3/uL (1.5-6.6); NEUTROPHILS % (AUTO) 86.5 %; PLT - PLATELET COUNT 437 10^3/uL (130-450); RED BLOOD COUNT 3.51 10^6/uL (4.70-6.10); RED CELL DISTRIBUTION WIDTH 14.7 % (12.0-15.0); WHITE BLOOD COUNT 10.2 x10^3/uL (4.8-10.8)
[2022-09-15 17:54] LABS: ALBUMIN 3.2 g/dL (3.2-5.5); CALCIUM 10.5 mg/dL (8.5-10.3); CREATININE 3.9 mg/dL (0.6-1.2); MAGNESIUM 2.4 mg/dL (1.7-2.8); PHOSPHORUS 3.9 mg/dL (2.5-4.6); POTASSIUM 3.8 mmol/L (3.5-5.0)
== END 2022-09-15 11:08 | disposition home or self-care (01) ==
LOC: LAB.N 11:07
PROVIDERS: ATTEND Internal Medicine Nephrology
DX: I12.9 Hypertensive chronic kidney disease with stage 1 through stage 4 chronic kidney disease, or unspecified chronic kidney disease (principal); N18.4 Chronic kidney disease, stage 4 (severe); E83.9 Disorder of mineral metabolism, unspecified; M89.9 Disorder of bone, unspecified; E83.42 Hypomagnesemia
CPT/HCPCS: 36415; 80069; 83735; 83970; 85025

== ENCOUNTER 2022-09-18 11:04 | Outpatient (CLI) | payer MEDICARE, OTHER ==
[2022-09-18 18:06] LABS: BASOPHILS # (AUTO) 0.1 10^3/uL (0.0-0.1); BASOPHILS % (AUTO) 0.6 %; EOSINOPHILS # (AUTO) 0.3 10^3/uL (0.0-0.7); EOSINOPHILS % (AUTO) 2.5 %; HCT - HEMATOCRIT 31.5 % (42.0-52.0); HGB - HEMOGLOBIN 9.6 g/dL (14.0-18.0); LYMPHOCYTES # (AUTO) 0.6 10^3/uL (1.5-3.5); LYMPHOCYTES % (AUTO) 6.2 %; MEAN CORPUSCULAR HEMOGLOBIN 29.4 pg (27.0-31.0); MEAN CORPUSCULAR HGB CONC 30.5 g/dL (32.0-36.0); MEAN CORPUSCULAR VOLUME 96.3 fL (80.0-94.0); MEAN PLATELET VOLUME 9.2 fL (7.4-11.4); MONOCYTES # (AUTO) 1.1 10^3/uL (0.0-1.0); NEUTROPHILS # (AUTO) 8.1 10^3/uL (1.5-6.6); NEUTROPHILS % (AUTO) 78.9 %; PLT - PLATELET COUNT 452 10^3/uL (130-450); RED BLOOD COUNT 3.27 10^6/uL (4.70-6.10); RED CELL DISTRIBUTION WIDTH 14.5 % (12.0-15.0); WHITE BLOOD COUNT 10.3 x10^3/uL (4.8-10.8)
[2022-09-18 18:16] LABS: ALBUMIN 3.1 g/dL (3.2-5.5); CALCIUM 10.4 mg/dL (8.5-10.3); CREATININE 3.6 mg/dL (0.6-1.2); PHOSPHORUS 3.2 mg/dL (2.5-4.6); POTASSIUM 4.2 mmol/L (3.5-5.0)
== END 2022-09-18 11:05 | disposition home or self-care (01) ==
LOC: LAB.N 11:04
PROVIDERS: ATTEND Internal Medicine Nephrology
DX: I12.9 Hypertensive chronic kidney disease with stage 1 through stage 4 chronic kidney disease, or unspecified chronic kidney disease (principal); N18.4 Chronic kidney disease, stage 4 (severe); E83.9 Disorder of mineral metabolism, unspecified; M89.9 Disorder of bone, unspecified; E83.42 Hypomagnesemia
CPT/HCPCS: 36415; 80069; 83735; 83970; 85025

== ENCOUNTER 2022-09-23 11:34 | Outpatient (CLI) | payer MEDICARE, OTHER ==
[2022-09-23 18:27] LABS: ALBUMIN 3.1 g/dL (3.2-5.5); CALCIUM 10.9 mg/dL (8.5-10.3); CREATININE 3.1 mg/dL (0.6-1.2); PHOSPHORUS 3.8 mg/dL (2.5-4.6); POTASSIUM 4.5 mmol/L (3.5-5.0)
== END 2022-09-23 11:35 | disposition home or self-care (01) ==
LOC: LAB.N 11:34
PROVIDERS: ATTEND Internal Medicine Nephrology
DX: I12.9 Hypertensive chronic kidney disease with stage 1 through stage 4 chronic kidney disease, or unspecified chronic kidney disease (principal); N18.4 Chronic kidney disease, stage 4 (severe); E83.9 Disorder of mineral metabolism, unspecified; M89.9 Disorder of bone, unspecified; E83.42 Hypomagnesemia
CPT/HCPCS: 36415; 80069

== ENCOUNTER 2022-10-09 11:20 | Outpatient (CLI) | payer MEDICARE, OTHER ==
[2022-10-09 17:57] LABS: BASOPHILS # (AUTO) 0.1 10^3/uL (0.0-0.1); BASOPHILS % (AUTO) 0.5 %; EOSINOPHILS # (AUTO) 0.3 10^3/uL (0.0-0.7); EOSINOPHILS % (AUTO) 2.9 %; HCT - HEMATOCRIT 33.5 % (42.0-52.0); HGB - HEMOGLOBIN 10.3 g/dL (14.0-18.0); LYMPHOCYTES # (AUTO) 0.5 10^3/uL (1.5-3.5); LYMPHOCYTES % (AUTO) 4.4 %; MEAN CORPUSCULAR HEMOGLOBIN 29.3 pg (27.0-31.0); MEAN CORPUSCULAR HGB CONC 30.7 g/dL (32.0-36.0); MEAN CORPUSCULAR VOLUME 95.4 fL (80.0-94.0); MEAN PLATELET VOLUME 9.6 fL (7.4-11.4); MONOCYTES % (AUTO) 9.8 %; NEUTROPHILS # (AUTO) 8.6 10^3/uL (1.5-6.6); NEUTROPHILS % (AUTO) 81.5 %; PLT - PLATELET COUNT 333 10^3/uL (130-450); RED BLOOD COUNT 3.51 10^6/uL (4.70-6.10); RED CELL DISTRIBUTION WIDTH 15.6 % (12.0-15.0); WHITE BLOOD COUNT 10.5 x10^3/uL (4.8-10.8)
[2022-10-09 18:13] LABS: ALBUMIN 3.5 g/dL (3.2-5.5); CALCIUM 10.1 mg/dL (8.5-10.3); CREATININE 2.9 mg/dL (0.6-1.2); MAGNESIUM 2.4 mg/dL (1.7-2.8); PHOSPHORUS 3.6 mg/dL (2.5-4.6); POTASSIUM 4.5 mmol/L (3.5-5.0)
== END 2022-10-09 11:21 | disposition home or self-care (01) ==
LOC: LAB.N 11:20
PROVIDERS: ATTEND Internal Medicine Nephrology
DX: I12.9 Hypertensive chronic kidney disease with stage 1 through stage 4 chronic kidney disease, or unspecified chronic kidney disease (principal); N18.4 Chronic kidney disease, stage 4 (severe); E83.9 Disorder of mineral metabolism, unspecified; M89.9 Disorder of bone, unspecified; E83.42 Hypomagnesemia
CPT/HCPCS: 36415; 80069; 83735; 83970; 85025

== ENCOUNTER 2022-11-14 11:16 | Outpatient (CLI) | payer MEDICARE, OTHER ==
[2022-11-14 17:41] LABS: BASOPHILS # (AUTO) 0.1 10^3/uL (0.0-0.1); BASOPHILS % (AUTO) 0.6 %; EOSINOPHILS # (AUTO) 0.2 10^3/uL (0.0-0.7); EOSINOPHILS % (AUTO) 1.8 %; HCT - HEMATOCRIT 32.8 % (42.0-52.0); HGB - HEMOGLOBIN 9.8 g/dL (14.0-18.0); LYMPHOCYTES # (AUTO) 0.5 10^3/uL (1.5-3.5); LYMPHOCYTES % (AUTO) 4.4 %; MEAN CORPUSCULAR HEMOGLOBIN 28.2 pg (27.0-31.0); MEAN CORPUSCULAR HGB CONC 29.9 g/dL (32.0-36.0); MEAN CORPUSCULAR VOLUME 94.3 fL (80.0-94.0); MEAN PLATELET VOLUME 9.4 fL (7.4-11.4); MONOCYTES # (AUTO) 1.1 10^3/uL (0.0-1.0); MONOCYTES % (AUTO) 9.5 %; NEUTROPHILS # (AUTO) 9.2 10^3/uL (1.5-6.6); NEUTROPHILS % (AUTO) 83.2 %; PLT - PLATELET COUNT 361 10^3/uL (130-450); RED BLOOD COUNT 3.48 10^6/uL (4.70-6.10); RED CELL DISTRIBUTION WIDTH 16.2 % (12.0-15.0); WHITE BLOOD COUNT 11.1 x10^3/uL (4.8-10.8)
[2022-11-14 17:54] LABS: ALBUMIN 3.4 g/dL (3.2-5.5); CALCIUM 9.9 mg/dL (8.5-10.3); CREATININE 3.1 mg/dL (0.6-1.2); MAGNESIUM 2.2 mg/dL (1.7-2.8); PHOSPHORUS 4.3 mg/dL (2.5-4.6); POTASSIUM 4.1 mmol/L (3.5-5.0)
== END 2022-11-14 11:17 | disposition home or self-care (01) ==
LOC: LAB.N 11:16
PROVIDERS: ATTEND Internal Medicine Nephrology
DX: I12.9 Hypertensive chronic kidney disease with stage 1 through stage 4 chronic kidney disease, or unspecified chronic kidney disease (principal); N18.4 Chronic kidney disease, stage 4 (severe); E83.9 Disorder of mineral metabolism, unspecified; M89.9 Disorder of bone, unspecified; E83.42 Hypomagnesemia
CPT/HCPCS: 36415; 80069; 83735; 83970; 85025

== ENCOUNTER 2022-11-20 11:02 | Outpatient (CLI) | payer MEDICARE, OTHER ==
[2022-11-20 17:49] LABS: BASOPHILS # (AUTO) 0.1 10^3/uL (0.0-0.1); BASOPHILS % (AUTO) 0.7 %; EOSINOPHILS # (AUTO) 0.2 10^3/uL (0.0-0.7); EOSINOPHILS % (AUTO) 2.2 %; HCT - HEMATOCRIT 31.8 % (42.0-52.0); HGB - HEMOGLOBIN 9.5 g/dL (14.0-18.0); LYMPHOCYTES # (AUTO) 0.6 10^3/uL (1.5-3.5); LYMPHOCYTES % (AUTO) 6.6 %; MEAN CORPUSCULAR HEMOGLOBIN 28.5 pg (27.0-31.0); MEAN CORPUSCULAR HGB CONC 29.9 g/dL (32.0-36.0); MEAN CORPUSCULAR VOLUME 95.5 fL (80.0-94.0); MEAN PLATELET VOLUME 9.4 fL (7.4-11.4); MONOCYTES # (AUTO) 0.9 10^3/uL (0.0-1.0); MONOCYTES % (AUTO) 10.1 %; NEUTROPHILS # (AUTO) 7.1 10^3/uL (1.5-6.6); NEUTROPHILS % (AUTO) 79.8 %; PLT - PLATELET COUNT 351 10^3/uL (130-450); RED BLOOD COUNT 3.33 10^6/uL (4.70-6.10); RED CELL DISTRIBUTION WIDTH 16.6 % (12.0-15.0); WHITE BLOOD COUNT 8.9 x10^3/uL (4.8-10.8)
[2022-11-20 17:56] LABS: ALBUMIN 3.4 g/dL (3.2-5.5); CALCIUM 9.8 mg/dL (8.5-10.3); CREATININE 3.1 mg/dL (0.6-1.2); MAGNESIUM 2.3 mg/dL (1.7-2.8); PHOSPHORUS 3.7 mg/dL (2.5-4.6); POTASSIUM 4.1 mmol/L (3.5-5.0); URIC ACID 5.9 mg/dL (2.6-7.2)
== END 2022-11-20 11:03 | disposition home or self-care (01) ==
LOC: LAB.N 11:02
PROVIDERS: ATTEND Internal Medicine Nephrology
DX: N18.4 Chronic kidney disease, stage 4 (severe) (principal); M10.342 Gout due to renal impairment, left hand
CPT/HCPCS: 36415; 80069; 82306; 83735; 83970; 84550; 85025

== ENCOUNTER 2022-12-02 11:14 | Outpatient (CLI) | payer MEDICARE, OTHER ==
[2022-12-02 18:26] LABS: BASOPHILS % (AUTO) 0.4 %; EOSINOPHILS # (AUTO) 0.1 10^3/uL (0.0-0.7); EOSINOPHILS % (AUTO) 1.3 %; HCT - HEMATOCRIT 34.2 % (42.0-52.0); HGB - HEMOGLOBIN 10.2 g/dL (14.0-18.0); LYMPHOCYTES # (AUTO) 0.5 10^3/uL (1.5-3.5); LYMPHOCYTES % (AUTO) 5.4 %; MEAN CORPUSCULAR HEMOGLOBIN 28.1 pg (27.0-31.0); MEAN CORPUSCULAR HGB CONC 29.8 g/dL (32.0-36.0); MEAN CORPUSCULAR VOLUME 94.2 fL (80.0-94.0); MEAN PLATELET VOLUME 10.1 fL (7.4-11.4); MONOCYTES # (AUTO) 0.8 10^3/uL (0.0-1.0); MONOCYTES % (AUTO) 9.1 %; NEUTROPHILS # (AUTO) 7.7 10^3/uL (1.5-6.6); NEUTROPHILS % (AUTO) 83.3 %; PLT - PLATELET COUNT 391 10^3/uL (130-450); RED BLOOD COUNT 3.63 10^6/uL (4.70-6.10); RED CELL DISTRIBUTION WIDTH 16.3 % (12.0-15.0); WHITE BLOOD COUNT 9.2 x10^3/uL (4.8-10.8)
[2022-12-02 18:48] LABS: ALBUMIN 3.4 g/dL (3.2-5.5); CALCIUM 10.2 mg/dL (8.5-10.3); CREATININE 3.3 mg/dL (0.6-1.2); MAGNESIUM 2.2 mg/dL (1.7-2.8); PHOSPHORUS 4.4 mg/dL (2.5-4.6); POTASSIUM 3.7 mmol/L (3.5-5.0)
== END 2022-12-02 11:15 | disposition home or self-care (01) ==
LOC: LAB.N 11:14
PROVIDERS: ATTEND Internal Medicine Nephrology
DX: I12.9 Hypertensive chronic kidney disease with stage 1 through stage 4 chronic kidney disease, or unspecified chronic kidney disease (principal); N18.4 Chronic kidney disease, stage 4 (severe); E83.9 Disorder of mineral metabolism, unspecified; M89.9 Disorder of bone, unspecified; E83.42 Hypomagnesemia
CPT/HCPCS: 36415; 80069; 83735; 83970; 85025

== ENCOUNTER 2022-12-25 11:18 | Outpatient (CLI) | payer MEDICARE, OTHER ==
[2022-12-25 18:05] LABS: BASOPHILS % (AUTO) 0.4 %; EOSINOPHILS # (AUTO) 0.1 10^3/uL (0.0-0.7); EOSINOPHILS % (AUTO) 1.5 %; HCT - HEMATOCRIT 34.8 % (42.0-52.0); HGB - HEMOGLOBIN 10.4 g/dL (14.0-18.0); LYMPHOCYTES # (AUTO) 0.4 10^3/uL (1.5-3.5); LYMPHOCYTES % (AUTO) 4.6 %; MEAN CORPUSCULAR HEMOGLOBIN 28.1 pg (27.0-31.0); MEAN CORPUSCULAR HGB CONC 29.9 g/dL (32.0-36.0); MEAN CORPUSCULAR VOLUME 94.1 fL (80.0-94.0); MEAN PLATELET VOLUME 9.7 fL (7.4-11.4); MONOCYTES # (AUTO) 0.7 10^3/uL (0.0-1.0); MONOCYTES % (AUTO) 7.4 %; NEUTROPHILS # (AUTO) 8.3 10^3/uL (1.5-6.6); NEUTROPHILS % (AUTO) 85.7 %; PLT - PLATELET COUNT 335 10^3/uL (130-450); RED CELL DISTRIBUTION WIDTH 17.3 % (12.0-15.0); WHITE BLOOD COUNT 9.6 x10^3/uL (4.8-10.8)
[2022-12-25 18:15] LABS: ALBUMIN 3.5 g/dL (3.2-5.5); CALCIUM 10.1 mg/dL (8.5-10.3); CREATININE 3.1 mg/dL (0.6-1.2); MAGNESIUM 2.4 mg/dL (1.7-2.8); PHOSPHORUS 4.3 mg/dL (2.5-4.6); POTASSIUM 4.4 mmol/L (3.5-5.0)
== END 2022-12-25 11:19 | disposition home or self-care (01) ==
LOC: LAB.N 11:18
PROVIDERS: ATTEND Internal Medicine Nephrology
DX: I12.9 Hypertensive chronic kidney disease with stage 1 through stage 4 chronic kidney disease, or unspecified chronic kidney disease (principal); N18.4 Chronic kidney disease, stage 4 (severe); E83.9 Disorder of mineral metabolism, unspecified; M89.9 Disorder of bone, unspecified; E83.42 Hypomagnesemia
CPT/HCPCS: 36415; 80069; 83735; 83970; 85025